=== PATIENT | male | born 1955 | race Caucasian/White ===

== ENCOUNTER 2017-07-10 07:47 | Day surgery (SDC) | payer BC ==
[2017-07-08 11:39] VITALS: BMI 29.7
[~2017-07-10 07:47] MED LIST: LACTATED RINGERS 1,000 ML IV SCH
[2017-07-10] MEDS ORDERED: LIDOCAINE 1% 20 ML VIAL (10MG/ML) FOR IV START INTRADERMA ONE (08:56)
[2017-07-10] MEDS ORDERED: fentaNYL (PF) 50 MCG/ML 2 ML AMP ONE (09:20)
[2017-07-10] MEDS ORDERED: PROPOFOL 10 MG/ML 20 ML VIAL IV ONE (09:20)
[2017-07-10] MEDS ORDERED: MIDAZOLAM 2 MG/2 ML VIAL ONE (09:20)
--- NOTE | 2017-07-10 09:51 | P.PCN ---
Date of Procedure: 07/10/17 Preoperative Diagnosis: GERD Postoperative Diagnosis: Duodenitis gastritis esophagitis Procedure(s) Performed: EGD with duodenal biopsy gastric biopsy and GE junction biopsies Anesthesia: MAC Surgeon: Efrain Campbell Pathology: other (Biopsies sent to pathology) Condition: stable Disposition: same day Description of Procedure: Patient is brought to the Endo suite placed left lateral decubitus position underwent sedation per department of anesthesia timeout performed correct patient correct procedure correct site was verified the scope was passed through the oropharynx on the esophagus with ease under direct visualization passed through the stomach into the first and second portion of the duodenum duodenitis was noted biopsy of the duodenum was taken the stomach was then withdrawn into the stomach where was retroflexed all fernandez of the stomach were inspected and ample time was allowed for the stomach to insufflate to inspect for had a hernia no significant for hernia was noted antral biopsy was then taken the stomach was noted to be somewhat inflamed with mild to moderate gastritis. The scope was then withdrawn to the GE junction where there was esophagitis noted at the GE junction multiple biopsies were taken the scope was then slowly withdrawn through the esophagus being sure to visualize all fernandez on the way out no other abnormalities were noted patient tolerated procedure well no apparent complications he will follow-up in my office Plan - Discharge Summary New Discharge Prescriptions: New Omeprazole 40 mg PO DAILY #30 capsule. No Action Tamsulosin HCl [Flomax] 0.4 mg PO DAILY Multivitamin [Men's Multi-Vitamin] 1 each PO DAILY Aspirin 81 mg PO DAILY Omeprazole [PriLOSEC] 20 mg PO DAILY Atorvastatin [Lipitor] 1 tab PO DAILY Discharge Medication List Aspirin 81 mg PO DAILY 07/08/17 [History] Multivitamin [Men's Multi-Vitamin] 1 each PO DAILY 07/08/17 [History] Omeprazole [PriLOSEC] 20 mg PO DAILY 07/08/17 [History] Tamsulosin HCl [Flomax] 0.4 mg PO DAILY 07/08/17 [History] Atorvastatin [Lipitor] 1 tab PO DAILY 07/10/17 [History] Omeprazole 40 mg PO DAILY #30 capsule. 07/10/17 [Rx]
[2017-07-10 09:54] VITALS: BP 129/77; PULSE 64; RESP 18
--- NOTE | 2017-08-11 09:15 | P.HPADDEND ---
H&P Addendum H&P Addendum Date: 08/11/17 See paper form for H and P on chart
== END 2017-07-10 10:09 | disposition home or self-care (01) ==
LOC: ORWHC2ENDO 07:47
PROVIDERS: ATTEND Student in an Organized Health Care Education/Training Program
DX: K31.9 Disease of stomach and duodenum, unspecified (principal); K21.0 Gastro-esophageal reflux disease with esophagitis; K29.80 Duodenitis without bleeding; K29.70 Gastritis, unspecified, without bleeding; E29.1 Testicular hypofunction; R68.82 Decreased libido; N40.0 Benign prostatic hyperplasia without lower urinary tract symptoms; E78.5 Hyperlipidemia, unspecified; J30.9 Allergic rhinitis, unspecified; Z79.899 Other long term (current) drug therapy; Z79.82 Long term (current) use of aspirin; Z87.891 Personal history of nicotine dependence
CPT/HCPCS: 88305; 43239; J2250; J3010; J2704

== ENCOUNTER 2020-02-16 11:04 | Emergency (ER) | payer BC ==
[2020-02-16 11:11] VITALS: TEMP 99.3
[2020-02-16 12:38] LABS: Basophils % (A) 1 %; Eosinophils % (A) 1 %; HCT 49.8 % (39.0-53.0); HGB 16.6 gm/dL (13.0-17.5); Lymphocytes # (A) 1.4 k/uL (1.0-4.8); Lymphocytes % (A) 35 %; MCH 30.4 pg (25.0-35.0); MCHC 33.2 g/dL (31.0-37.0); MCV 91.4 fL (80.0-100.0); Mean Platelet Volume 8.6; Monocytes # (A) 0.3 k/uL (0-1.0); Monocytes % (A) 7 %; Neutrophils # (A) 2.2 k/uL (1.3-7.7); Neutrophils % (A) 56 %; Platelet Count 125 k/uL (150-450); RBC 5.45 m/uL (4.30-5.90); RDW 12.8 % (11.5-15.5)
[2020-02-16 12:50] LABS: ALT 31 U/L (4-49); AST 40 U/L (17-59); African American GFR (CKD) >90 (>60 ml/min/1.73 sqM); Albumin 4.5 g/dL (3.5-5.0); Alkaline Phosphatase 84 U/L (38-126); Anion Gap 10 mmol/L; Blood Urea Nitrogen 17 mg/dL (9-20); Calcium 8.8 mg/dL (8.4-10.2); Carbon Dioxide 23 mmol/L (22-30); Chloride 101 mmol/L (98-107); Glucose 92 mg/dL (74-99); Non-African American GFR(CKD) 78 (>60 ml/min/1.73 sqM); Potassium 4.1 mmol/L (3.5-5.1); Sodium 134 mmol/L (137-145); Total Bilirubin 0.6 mg/dL (0.2-1.3); Total Protein 7.3 g/dL (6.3-8.2)
--- NOTE | 2020-02-16 13:08 | ED ---
URI HPI - General Chief Complaint: Upper Respiratory Infection Stated Complaint: +Covid SOB cough Time Seen by Provider: 02/16/20 11:15 Source: patient Mode of arrival: ambulatory Limitations: no limitations - History of Present Illness Initial Comments: 64-year-old male presenting today for chief complaint of congestion cough, covid positive. Patient states that he has had increasing on and off chest pains that are sharp he states that he has also had increasing shortness of breath he states that the pain feels like chest wall from coughing so hard. Patient denies hemoptysis leg swelling. Denies vomiting diarrhea. Patient states today he was feeling unwell like symptoms were worsenign and presented to the ER. upon arrival patient appears well nontoxic he is not in distress - Related Data Home Medications Medication Instructions Recorded Confirmed Multivitamin [Men's Multi-Vitamin] 1 tab PO DAILY 07/08/17 02/16/20 Omeprazole [PriLOSEC] 20 mg PO DAILY 07/08/17 02/16/20 Tamsulosin HCl [Flomax] 0.4 mg PO DAILY 07/08/17 02/16/20 Atorvastatin [Lipitor] 20 mg PO DAILY 07/10/17 02/16/20 Citalopram Hydrobromide [CeleXA] 20 mg PO DAILY 02/16/20 02/16/20 Previous Rx's Medication Instructions Recorded Azithromycin [Zithromax Z-pack (6 0 mg PO DIRECTED 5 Days #6 tab 02/16/20 tabs)] predniSONE 50 mg PO DAILY 5 Days #5 tab 02/16/20 Allergies Allergy/AdvReac Type Severity Reaction Status Date / Time No Known Allergies Allergy Verified 02/16/20 12:38 Review of Systems ROS Statement: Those systems with pertinent positive or pertinent negative responses have been documented in the HPI. ROS Other: All systems not noted in ROS Statement are negative. Past Medical History Past Medical History: GERD/Reflux, Hyperlipidemia Additional Past Medical History / Comment(s): hx inflation on prior EGD History of Any Multi-Drug Resistant Organisms: None Reported Past Surgical History: Orthopedic Surgery Additional Past Surgical History / Comment(s): ORIF lt foot,LASIK reagan eyes Past Anesthesia/Blood Transfusion Reactions: No Reported Reaction Past Psychological History: No Psychological Hx Reported Smoking Status: Never smoker Past Alcohol Use History: Occasional Past Drug Use History: None Reported - Past Family History Mother Family Medical History: No Reported History General Exam Limitations: no limitations Course Vital Signs 02/16/20 11:06 Temperature 99.3 F Pulse Rate 72 Respiratory 18 Rate Blood Pressure 138/83 O2 Sat by Pulse 96 Oximetry Medical Decision Making - Lab Data Result diagrams: 02/16/20 12:20 02/16/20 12:20 Lab Results 02/16/20 02/16/20 02/16/20 Range/Units 12:20 12: 12:20 WBC 4.0 (3.8-10.6) k/uL RBC 5.45 (4.30-5.90) m/uL Hgb 16.6 (13.0-17.5) gm/dL Hct 49.8 (39.0-53.0) % MCV 91.4 (80.0-100.0) fL MCH 30.4 (25.0-35.0) pg MCHC 33.2 (31.0-37.0) g/dL RDW 12.8 (11.5-15.5) % Plt Count 125 L (150-450) k/uL MPV 8.6 Neutrophils % 56 % Lymphocytes % 35 % Monocytes % 7 % Eosinophils % 1 % Basophils % 1 % Neutrophils # 2.2 (1.3-7.7) k/uL Lymphocytes # 1.4 (1.0-4.8) k/uL Monocytes # 0.3 (0-1.0) k/uL Eosinophils # 0.0 (0-0.7) k/uL Basophils # 0.0 (0-0.2) k/uL Sodium 134 L (137-145) mmol/L Potassium 4.1 (3.5-5.1) mmol/L Chloride 101 (98-107) mmol/L Carbon Dioxide 23 (22-30) mmol/L Anion Gap 10 mmol/L BUN 17 (9-20) mg/dL Creatinine 1.01 (0.66-1.25) mg/dL Est GFR (CKD-EPI)AfAm >90 (>60 ml/min/1.73 sqM) Est GFR (CKD-EPI)NonAf 78 (>60 ml/min/1.73 sqM) Glucose 92 (74-99) mg/dL Calcium 8.8 (8.4-10.2) mg/dL Total Bilirubin 0.6 (0.2-1.3) mg/dL AST 40 (17-59) U/L ALT 31 (4-49) U/L Alkaline Phosphatase 84 (38-126) U/L Troponin I <0.012 (0.000-0.034) ng/mL Total Protein 7.3 (6.3-8.2) g/dL Albumin 4.5 (3.5-5.0) g/dL Disposition Clinical Impression: COVID-19, Pneumonia Disposition: HOME SELF-CARE Condition: Good Instructions (If sedation given, give patient instructions): Upper Respiratory Infection (ED) Additional Instructions: Please use medication as discussed. Please follow-up with family doctor in the next 2 days.. Please return to emergency room if the symptoms increase or worsen or for any other concerns. Prescriptions: predniSONE 50 mg PO DAILY 5 Days #5 tab Azithromycin [Zithromax Z-pack (6 tabs)] 0 mg PO DIRECTED 5 Days #6 tab Is patient prescribed a controlled substance at d/c from ED?: No Referrals: Jer Velasquez MD [Primary Care Provider] - 1-2 days Time of Disposition: 13:46
--- NOTE | 2020-02-16 13:42 | XR ---
EXAMINATION TYPE: XR chest 2V DATE OF EXAM: 02/16/2020 COMPARISON: Prior chest x-ray 12/07/2009 HISTORY: Covid positive, shortness of breath TECHNIQUE: Frontal and lateral views of the chest are obtained. FINDINGS: The cardiac mediastinal silhouette, pulmonary vascularity and shemar are stable. Some minima l patchy densities present in the lower lobes. No evident pneumothorax or pleural effusion. There is substernal nodularity seen on the lateral exam, findings stable. IMPRESSION: Correlate for pneumonia. Old granulomatous disease.
[2020-02-16 14:16] VITALS: BP 111/84; PULSE 80; RESP 17
== END 2020-02-16 14:16 | disposition home or self-care (01) ==
LOC: EC 11:04
DX: U07.1 COVID-19 (principal); J18.9 Pneumonia, unspecified organism; K21.9 Gastro-esophageal reflux disease without esophagitis; E78.5 Hyperlipidemia, unspecified; Z79.899 Other long term (current) drug therapy
CPT/HCPCS: 36415; 71046; 80053; 84484; 85025; 93005; 99285

== ENCOUNTER 2020-02-20 09:22 | Inpatient (IN) | payer BC ==
[2020-02-20 10:20] LABS: Basophils % (A) 0 %; Eosinophils % (A) 0 %; HCT 42.9 % (39.0-53.0); HGB 15.1 gm/dL (13.0-17.5); Lymphocytes # (A) 0.6 k/uL (1.0-4.8); Lymphocytes % (A) 12 %; MCH 31.3 pg (25.0-35.0); MCHC 35.2 g/dL (31.0-37.0); MCV 88.9 fL (80.0-100.0); Mean Platelet Volume 8.7; Monocytes # (A) 0.2 k/uL (0-1.0); Monocytes % (A) 4 %; Neutrophils # (A) 4.2 k/uL (1.3-7.7); Neutrophils % (A) 82 %; Platelet Count 164 k/uL (150-450); RBC 4.82 m/uL (4.30-5.90); RDW 12.2 % (11.5-15.5); WBC 5.1 k/uL (3.8-10.6)
--- NOTE | 2020-02-20 10:22 | ED ---
General Adult HPI - General Chief complaint: Shortness of Breath Stated complaint: +Covid/SOB/Cough Time Seen by Provider: 02/20/20 09:42 Source: patient Mode of arrival: ambulatory Limitations: no limitations - History of Present Illness Initial comments: Dictation was produced using Dash[employer] dictation software. please excuse any grammatical, word or spelling errors. This patient was cared for during a federal and state declared state of emergen cy secondary to Covid 19 Chief Complaint: 64-year-old male presents with persistent dyspnea and chest pain. Covid 19 Positive History of Present Illness: 64-year-old male presents today with persistent and slightly worsening dyspnea. Patient states he has had Covid symptoms for approximately 12 days. He tested positive last week Thursday. He was seen here in emergency department 4 days ago for his symptoms. At that time is not hypoxic. Patient states that his symptoms feel like they're getting worse. States this pleuritic chest pain substernal area worse with deep inspiration and cough. Patient also states he is short of breath. Patient has a comorbidities. Does not medications on a regular basis. Still does have constitutional symptoms. The ROS documented in this emergency department record has been reviewed and confirmed by me. Those systems with pertinent positive or negative responses have been documented in the HPI. All other systems are other negative and/or noncontributory. PHYSICAL EXAM: General Impression: Alert and oriented x3, not in acute distress HEENT: Normocephalic atraumatic, extra-ocular movements intact, pupils equal and reactive to light bilaterally, mucous membranes moist. Cardiovascular: Heart regular rate and rhythm Chest: Able to complete full sentences, no retractions, no tachypnea Abdomen: abdomen soft, non-tender, non-distended, no organomegaly Musculoskeletal: Pulses present and equal in all extremities, no peripheral george ma Motor: no focal deficits noted Neurological: CN II-XII grossly intact, no focal motor or sensory deficits noted Skin: Intact with no visualized rashes Psych: Normal affect and mood ED course: 64-year-old male with positive Covid presents today with worsening dyspnea and chest pain.. Vital signs upon arrival shows 100 100.9. He is 95% on room air. He is not dyspneic appearing at bedside. Laboratory evaluation obtained. CBC shows a full set up a new 0.6. D-dimer is elevated at 16.05. Metabolic panel is within acceptable limits. C-reactive protein is 50.5. Chest x-ray shows developing bibasilar infiltrates greater at the base. CT angios the chest shows no evidence of pulmonary embolism at this time. There is however evidence of bilateral ground glass capacity is con sistent with Covid pneumonia. Disposition options were discussed with patient. He is agreeable for admission. Case was discussed with pulmonology Dr. Pichardo who recommends the patient not candidate for Remdesivir at this time. Patient given 6 mg of IV Decadron. Case is discussed with Dr. Velasquez who requests that pulmonology and infectious disease be on consult. At this point patient is stable appearing however given his clinical presentation there is strong concern his condition could worsening acutely. - Related Data Home Medications Medication Instructions Recorded Confirmed Omeprazole [PriLOSEC] 20 mg PO DAILY 07/08/17 02/20/20 Tamsulosin HCl [Flomax] 0.4 mg PO DAILY 07/08/17 02/20/20 Atorvastatin [Lipitor] 20 mg PO DAILY 07/10/17 02/20/20 Citalopram Hydrobromide [CeleXA] 20 mg PO DAILY 02/16/20 02/20/20 Azithromycin [Zithromax Z-pack (6 See Taper PO DAILY 02/20/20 02/20/20 tabs)] Previous Rx's Medication Instructions Recorded predniSONE 50 mg PO DAILY 5 Days #5 tab 02/16/20 Allergies Allergy/AdvReac Type Severity Reaction Status Date / Time No Known Allergies Allergy Verified 02/20/20 10:34 Review of Systems ROS Statement: Those systems with pertinent positive or pertinent negative responses have been documented in the HPI. ROS Other: All systems not noted in ROS Statement are negative. Past Medical History Past Medical History: GERD/Reflux, Hyperlipidemia Additional Past Medical History / Comment(s): covid History of Any Multi-Drug Resistant Organisms: None Reported Past Surgical History: Orthopedic Surgery Additional Past Surgical History / Comment(s): ORIF lt foot,LASIK reagan eyes Past Anesthesia/Blood Transfusion Reactions: No Reported Reaction Past Psychological History: No Psychological Hx Reported Smoking Status: Never smoker Past Alcohol Use History: Occasional Past Drug Use History: None Reported - Past Family History Mother Family Medical History: No Reported History General Exam Limitations: no limitations Course Vital Signs 02/20/20 09:34 Temperature 100.9 F H Pulse Rate 86 Respiratory 20 Rate Blood Pressure 130/82 O2 Sat by Pulse 95 Oximetry Medical Decision Making - Lab Data Result diagrams: 02/20/20 09:55 02/20/20 09:55 Lab Results 02/20/20 02/20/20 02/20/20 Range/Units 09:55 09:55 09:55 WBC 5.1 (3.8-10.6) k/uL RBC 4.82 (4.30-5.90) m/uL Hgb 15.1 (13.0-17.5) gm/dL Hct 42.9 (39.0-53.0) % MCV 88.9 (80.0-100.0) fL MCH 31.3 (25.0-35.0) pg MCHC 35.2 (31.0-37.0) g/dL RDW 12.2 (11.5-15.5) % Plt Count 164 (150-450) k/uL MPV 8.7 Neutrophils % 82 % Lymphocytes % 12 % Monocytes % 4 % Eosinophils % 0 % Basophils % 0 % Neutrophils # 4.2 (1.3-7.7) k/uL Lymphocytes # 0.6 L (1.0-4.8) k/uL Monocytes # 0.2 (0-1.0) k/uL Eosinophils # 0.0 (0-0.7) k/uL Basophils # 0.0 (0-0.2) k/uL D-Dimer 16.05 H (<0.60) mg/L FEU Sodium 135 L (137-145) mmol/L Potassium 3.7 (3.5-5.1) mmol/L Chloride 105 (98-107) mmol/L Carbon Dioxide 21 L (22-30) mmol/L Anion Gap 9 mmol/L BUN 20 (9-20) mg/dL Creatinine 0.84 (0.66-1.25) mg/dL Est GFR (CKD-EPI)AfAm >90 (>60 ml/min/1.73 sqM) Est GFR (CKD-EPI)NonAf >90 (>60 ml/min/1.73 sqM) Glucose 109 H (74-99) mg/dL Calcium 8.8 (8.4-10.2) mg/dL Troponin I (0.000-0.034) ng/mL C-Reactive Protein 50.5 H (<10.0) mg/L 02/20/20 Range/Units 09:55 WBC (3.8-10.6) k/uL RBC (4.30-5.90) m/uL Hgb (13.0-17.5) gm/dL Hct (39.0-53.0) % MCV (80.0-100.0) fL MCH (25.0-35.0) pg MCHC (31.0-37.0) g/dL RDW (11.5-15.5) % Plt Count (150-450) k/uL MPV Neutrophils % % Lymphocytes % % Monocytes % % Eosinophils % % Basophils % % Neutrophils # (1.3-7.7) k/uL Lymphocytes # (1.0-4.8) k/uL Monocytes # (0-1.0) k/uL Eosinophils # (0-0.7) k/uL Basophils # (0-0.2) k/uL D-Dimer (<0.60) mg/L FEU Sodium (137-145) mmol/L Potassium (3.5-5.1) mmol/L Chloride (98-107) mmol/L Carbon Dioxide (22-30) mmol/L Anion Gap mmol/L BUN (9-20) mg/dL Creatinine (0.66-1.25) mg/dL Est GFR (CKD-EPI)AfAm (>60 ml/min/1.73 sqM) Est GFR (CKD-EPI)NonAf (>60 ml/min/1.73 sqM) Glucose (74-99) mg/dL Calcium (8.4-10.2) mg/dL Troponin I <0.012 (0.000-0.034) ng/mL C-Reactive Protein (<10.0) mg/L Disposition Clinical Impression: COVID-19 Disposition: ADMITTED IP TO THIS HOSP Condition: Fair Referrals: Jer Velasquez MD [Primary Care Provider] - 1-2 days Decision Time: 13:08
--- NOTE | 2020-02-20 10:38 | XR ---
EXAMINATION TYPE: XR chest 1V portable DATE OF EXAM: 02/20/2020 COMPARISON: 02/16/2020 INDICATION: Lung pain, Covid pneumonia TECHNIQUE: Single frontal view of the chest is obtained. FINDINGS: The heart size is normal. The pulmonary vasculature is normal. Mild patchy infiltrate is at the left base. Minimal infiltrate may be at the right base. Findings are developing from comparison IMPRESSION: 1. Developing bibasilar infiltrates greater at the left base. Findings can be compatible with atypica l pneumonia in the proper clinical setting.
[2020-02-20 10:39] LABS: African American GFR (CKD) >90 (>60 ml/min/1.73 sqM); Anion Gap 9 mmol/L; Blood Urea Nitrogen 20 mg/dL (9-20); C Reactive Protein 50.5 mg/L (<10.0); Calcium 8.8 mg/dL (8.4-10.2); Carbon Dioxide 21 mmol/L (22-30); Chloride 105 mmol/L (98-107); Glucose 109 mg/dL (74-99); Non-African American GFR(CKD) >90 (>60 ml/min/1.73 sqM); Potassium 3.7 mmol/L (3.5-5.1); Sodium 135 mmol/L (137-145)
--- NOTE | 2020-02-20 11:43 | CT ---
EXAMINATION TYPE: CT chest angio for PE DATE OF EXAM: 02/20/2020 COMPARISON: 12/07/2009 HISTORY: difficulty breathing, covid positive CT DLP: 476.6 mGycm CONTRAST: CT chest with contrast and 3D reconstruction with MIP imaging is performed with IV Contrast, patient injected with 100 mL of Isovue 370. Contrast-enhanced CT of the chest was performed through the course of the pulmonary arteries with nata g and mediastinal window settings submitted. 3D reconstruction with MIP imaging was also performed. PULMONARY ARTERIES: The pulmonary arteries and their major tributaries are patent. I do not see otilia dence for sizable filling defect to suggest pulmonary embolic process. LUNGS: Scattered groundglass infiltrates are seen bilaterally. No evidence for atelectasis. No pulm onary nodule or mass is detected. No pleural effusion. MEDIASTINUM: Thoracic aorta is of normal caliber,however, evaluation is limited given timing of the contrast bolus. If there is concern for thoracic aortic pathology consider SHIKHA. Correlate clinicall y . The heart is enlarged. No evidence for mediastinal mass. No mediastinal lymph nodes greater vivienne n 1cm. HILAR STRUCTURES: No evidence for mass. No hilar lymph nodes greater than 1 cm. UPPER ABDOMEN: No significant abnormality is seen. IMPRESSION: 1. No evidence for Pulmonary embolism at this time. 2. Bilateral groundglass infiltrates compatible with Covid 19 pneumonia.
[2020-02-20] MEDS ORDERED: DEXAMETHASONE SOD PHOSPHATE 10 MG/ML 1 ML VIAL IV STA (12:34)
[2020-02-20] MEDS ORDERED: NALOXONE 0.4 MG/ML 1 ML VIAL IV PRN (13:01)
[2020-02-20] MEDS ORDERED: ACETAMINOPHEN TAB 325 MG TAB PO PRN (14:33)
[2020-02-20] MEDS: SODIUM CHLORIDE 0.9% 1,000 ML IV SCH (14:45)
[2020-02-20] MEDS: CHOLECALCIFEROL 1,000 UNIT TAB PO SCH (17:58)
[2020-02-20] MEDS: ASCORBIC ACID 500 MG TAB PO SCH (17:58)
[2020-02-20] MEDS: AZITHROMYCIN 500 MG TAB PO SCH (17:58)
[2020-02-20] MEDS: ZINC SULFATE 220 MG CAP PO SCH (17:59)
[2020-02-20] MEDS: ENOXAPARIN 40 MG/0.4 ML SYRINGE SQ SCH (17:59)
--- NOTE | 2020-02-21 03:20 | CONS ---
CONSULTATION DATE OF SERVICE: 02/20/2020 REASON FOR CONSULTATION: Acute COVID-19 infection. HISTORY OF PRESENT ILLNESS: The patient is a 64-year-old male, started getting sick about 12 days ago on February 08. The patient's symptoms have been fever, runny nose, sore throat and cough. The patient's symptoms persisted and rather gotten worse and he was tested for COVID-19 last Thursday. He got results on Thursday, which was positive. The patient was seen at [facility] ER about 4 days ago with similar symptoms. At that point, the patient was not hypoxic and the patient was discharged home on steroids and vancomycin. The patient presented back to the ER with concern for increasing shortness of breath upon minimal exertion. The patient also having cough which is mild to moderate intensity, not bringing up any sputum. No nausea, no vomiting. No abdominal pain or any diarrhea. With these symptoms, the patient was evaluated by the ER physician. On arrival to the ER, the patient did have a low-grade fever of 100.9. The patient has been saturating 95% to 96% on room air. The patient did have lymphopenia. His D-dimer was 16. . Chest x-ray was showing developing bibasilar infiltrate. CT angiogram was negative for PE, did show bilateral interstitial infiltrate. The patient has been admitted to the hospital. Infectious Disease was consulted for further management. REVIEW OF SYSTEMS: Positive points have been mentioned in HPI. Rest of the systems are negative. PAST MEDICAL HISTORY: Gastroesophageal reflux disease, hyperlipidemia. PAST SURGICAL HISTORY: ORIF left foot, bilateral eyes. SOCIAL HISTORY: No history of smoking. Occasionally drinks. No drug use. FAMILY HISTORY: No pertinent findings noticed. ALLERGIES: No known drug allergies. MEDICATIONS: Medications include the patient is currently on Zithromax, Celexa, dexamethasone, Lovenox Protonix, zinc sulfate, Narcan, Lipitor, Tylenol, vitamin C. PHYSICAL EXAMINATION: Blood pressure 120/74 with a pulse of 78, temperature is 97.6. He is 92% on room air. General description is a middle-aged male up in the chair in no distress. No tachypnea or accessory muscle of respiration use. HEENT: Examination shows no pallor or scleral icterus. Oral mucous membranes dry. NECK: Trachea central. No thyromegaly. LUNGS: Unlabored breathing, decreased intensity of breath sounds. No wheeze. HEART: S1, S2. Regular rate and rhythm. ABDOMEN: Soft. No tenderness. No guarding or rigidity. EXTREMITIES: No edema of feet. SKIN EXAMINATION: No rash or mass palpable. NEUROLOGICAL: Patient is awake, alert, oriented x3. Mood and affect normal. LABS: Hemoglobin 15.1, white count of 5.1. D-dimer is 16.05 with a BUN of 20, creatinine 0.84. CRP is 50.5. DIAGNOSTIC IMPRESSION: Patient with acute COVID-19 pneumonia in this patient admitted to the hospital with increasing shortness of breath. Patient's symptoms have been going on for 12 days and this patient currently will not qualify for remdesivir because of duration of his symptoms and no evidence of any secondary bacterial infection. PLAN: 1. Patient will be treated with Decadron, zinc sulfate, vitamin C, and Lovenox. In view of significant elevated D-dimer, may benefit from therapeutic rather than prophylactic dose. Will discuss with Pulmonary. 2. Will repeat inflammatory markers tomorrow. 3. Droplet isolation and respiratory support. 4. We will follow on clinical condition and further adjust medication if needed. Thank you for this consultation. Will follow this patient along with you. MMODL / IJN: [id number] /
[2020-02-21 06:40] LABS: Basophils # (A) 0.1 k/uL (0-0.2); Basophils % (A) 2 %; Eosinophils % (A) 0 %; HCT 39.5 % (39.0-53.0); HGB 13.5 gm/dL (13.0-17.5); Lymphocytes # (A) 0.6 k/uL (1.0-4.8); Lymphocytes % (A) 18 %; MCH 30.8 pg (25.0-35.0); MCHC 34.2 g/dL (31.0-37.0); Mean Platelet Volume 9.1; Monocytes # (A) 0.4 k/uL (0-1.0); Monocytes % (A) 11 %; Neutrophils # (A) 2.3 k/uL (1.3-7.7); Neutrophils % (A) 67 %; Platelet Count 165 k/uL (150-450); RBC 4.39 m/uL (4.30-5.90); RDW 12.1 % (11.5-15.5); WBC 3.5 k/uL (3.8-10.6)
[2020-02-21] MEDS: dexAMETHasone 2 MG TAB PO SCH (08:24)
[2020-02-21] MEDS: CITALOPRAM HYDROBROMIDE 20 MG TAB PO SCH (08:24)
[2020-02-21] MEDS: TAMSULOSIN 0.4 MG CAP.ER.24H PO SCH (08:24)
[2020-02-21] MEDS: ASCORBIC ACID 500 MG TAB PO SCH (08:24)
[2020-02-21] MEDS: CHOLECALCIFEROL 1,000 UNIT TAB PO SCH (08:24)
[2020-02-21] MEDS: AZITHROMYCIN 500 MG TAB PO SCH (08:24)
[2020-02-21] MEDS: ATORVASTATIN 20 MG TAB PO SCH (08:24)
[2020-02-21] MEDS: ZINC SULFATE 220 MG CAP PO SCH (08:24)
[2020-02-21] MEDS: PANTOPRAZOLE 40 MG TABLET PO SCH (08:24)
[2020-02-21] MEDS: ENOXAPARIN 40 MG/0.4 ML SYRINGE SQ SCH (08:24)
--- NOTE | 2020-02-21 15:51 | P.HPIM ---
History of Present Illness H&P Date: 02/20/20 Chief Complaint: Cough, congestion, shortness of breath This is a 64-year-old male patient of mine with past medical history of gastroesophageal reflux disease, hyperlipidemia, benign prostatic hypertrophy, recurrent depression. Patient was tested his Covid positive on Thursday of last week and presents with complaints chest congestion and cough as well as chest discomfort secondary to coughing, increasing shortness of breath. He denies any abdominal pain, vomiting or diarrhea. He initially presented to the emergency center on February 15 with worsening symptoms and was discharged home on prednisone 50 mg 5 days, Z-Angelito. Patient returned today to the [facility] with continued and persistent worsening dyspnea. Patient continues to have chest discomfort with deep inspiration and coughing. Temperature max 100.9, heart rate 86, blood pressure 130/82, pulse ox 95% on room air. CBC was unremarkable except for lymphocytopenia at 0.6. D-dimer 16. 05. C-reactive protein 50.5. Troponin negative. Electrolytes and renal function unremarkable. Chest x-ray reveals developing bibasilar infiltrates greater on the left base. Findings can be compatible with atypical pneumonia. CT angiogram of the chest revealed no evidence of pulmonary embolism. Bilateral groundglass infiltrates compatible with Covid [address] Pichardo was contacted by ER physician and patient not considered a candidate for Remdesivir. He was started on IV Decadron, admitted to the [facility] floor and consults with pulmonary medicine and infectious disease. Review of Systems Cardiovascular: Reports chest pain, Reports dyspnea on exertion, Reports shortness of breath, Denies edema, Denies leg edema, Denies lightheadedness, D enies palpitations, Denies syncope Respiratory: Reports congestion, Reports cough, Reports cough with sputum, Reports dyspnea, Reports respiratory infections, Reports wheezing, Denies excessive sputum, Denies hemoptysis, Denies home oxygen Gastrointestinal: Denies abdominal pain, Denies diarrhea, Denies nausea, Denies vomiting Genitourinary: Denies dysuria, Denies urinary hesitancy, Denies urinary retention Musculoskeletal: Denies frequent falls, Denies gait dysfunction, Denies myalgias Integumentary: Denies pruritus, Denies rash, Denies wounds Neurological: Denies change in mentation, Denies change in speech, Denies confusion, Denies headaches, Denies numbness, Denies seizures, Denies weakness Psychiatric: Denies anxiety, Denies depression Endocrine: Denies fatigue, Denies weight change Past Medical History Past Medical History: GERD/Reflux, Hyperlipidemia, Hypertension, Osteoarthritis (OA), Prostate Disorder, Sleep Apnea/CPAP/BIPAP Additional Past Medical History / Comment(s): covid, low testosterone. History of Any Multi-Drug Resistant Organisms: None Reported Past Surgical History: Orthopedic Surgery Additional Past Surgical History / Comment(s): ORIF lt foot,LASIK reagan eyes, right elbow surgery due to bone chip, colonoscopy Past Anesthesia/Blood Transfusion Reactions: No Reported Reaction Past Psychological History: No Psychological Hx Reported Smoking Status: Never smoker Past Alcohol Use History: Occasional Past Drug Use History: None Reported - Past Family History Mother Family Medical History: Hypertension (Mother is alive 88 year old with hyper tension.) Father Family Medical History: Dementia (Father at the age of 74 from dementia and had a history of seizure.), Hypertension, Seizure Disorder Brother(s) Family Medical History: Hyperlipidemia (one brother overweight with hy prlipidemia) Son(s) Family Medical History: No Reported History (2 sons with no major medical issues.) Daughter(s) Family Medical History: No Reported History (3 daughters with no major medical issues.) Medications and Allergies Home Medications Medication Instructions Recorded Confirmed Type Omeprazole [PriLOSEC] 20 mg PO DAILY 07/08/17 02/20/20 History Tamsulosin HCl [Flomax] 0.4 mg PO DAILY 07/08/17 02/20/20 History Atorvastatin [Lipitor] 20 mg PO DAILY 07/10/17 02/20/20 History Citalopram Hydrobromide [CeleXA] 20 mg PO DAILY 02/16/20 02/20/20 History predniSONE 50 mg PO DAILY 5 Days #5 tab 02/16/20 02/20/20 Rx Azithromycin [Zithromax Z-pack (6 See Taper PO DAILY 02/20/20 02/20/20 History tabs)] Allergies Allergy/AdvReac Type Severity Reaction Status Date / Time No Known Allergies Allergy Verified 02/20/20 10:34 Physical Exam Vitals: Vital Signs Temp Pulse Resp BP Pulse Ox 02/20/20 12:00 98.6 F 93 18 99/67 95 02/20/20 09:34 100.9 F H 86 20 130/82 95 Intake and Output 02/19/20 02/20/20 02/20/20 22:59 06:59 14:59 Other: Weight 104.326 kg Physical examination: HEENT: Head is atraumatic, normocephalic, pupils were equal round reactive to light and accommodations, extraocular muscle movement were intact, mucous membranes of the mouth are somewhat dry . Neck: Supple, no JVP, decreased carotid upstroke brisk. Chest: Decreased breath sounds at the bases, few rhonchi, no expiratory wheezes, no chest wall tenderness, no intercostal retractions. Heart: First heart sound is depressed, second heart sound is normal, no murmur. Abdomen: Soft, no tenderness, no distention, normal bowel sounds. Extremities: There is no edema, no calf tenderness, dorsalis pedis +2 bilaterally. Neurologic examination: Patient is awake alert and oriented 3, cranial nerves II-12 grossly intact. Results CBC & Chem 7: 02/21/20 06:07 02/20/20 09:55 Labs: Abnormal Lab Results - Last 24 Hours (Table) 02/20/20 02/20/20 02/20/20 Range/Units 09:55 09:55 09:55 Lymphocytes # 0.6 L (1.0-4.8) k/uL D-Dimer 16.05 H (<0.60) mg/L FEU Sodium 135 L (137-145) mmol/L Carbon Dioxide 21 L (22-30) mmol/L Glucose 109 H (74-99) mg/dL C-Reactive Protein 50.5 H (<10.0) mg/L Thrombosis Risk Factor Assmnt - DVT/VTE Prophylaxis DVT/VTE Prophylaxis: Pharmacologic Prophylaxis ordered Assessment and Plan Assessment: 1. Acute COVID-19 pneumonia diagnosed 6 days ago and out of the timeframe for Remdesivir. Patient admitted to the [facility] floor, consult with pulmonary medicine and infectious disease. Patient continued on azithromycin 500 mg daily, vitamin C, vitamin D, zinc, dexamethasone 6 mg daily, Lovenox 40 mg subcu daily. 2. Febrile illness with elevated inflammatory markers secondary to Covid 19. Continue as in #1. 3. Hyperlipidemia. Continue Lipitor 20 mg daily. 4. Gastroesophageal reflux disease and GI prophylaxis. Omeprazole 20 mg daily. 5. Recurrent depression. Continue Celexa 20 mg daily. 6. Benign prostatic hypertrophy. Continue Flomax 0.4 mg daily and monitor for urinary retention. 7. Remote history of tobacco use. quit. 8. DVT prophylaxis. we will continue wit Lovenox 40 mg SC daily. 9. Admits to inpatient , estimated length of stay 2 midnights. 10. full code.
--- NOTE | 2020-02-21 15:56 | P.PN ---
Subjective Progress Note Date: 02/21/20 This is a 64-year-old male patient of mine with past medical history of gastroesophageal reflux disease, hyperlipidemia, benign prostatic hypertrophy, recurrent depression. Patient was tested his Covid positive on Thursday of last week and presents with complaints chest congestion and cough as well as chest discomfort secondary to coughing, increasing shortness of breath. He denies any abdominal pain, vomiting or diarrhea. He initially presented to the emergency center on February 15 with worsening symptoms and was discharged home on prednisone 50 mg 5 days, Z-Angelito. Patient returned today to the emergency center with continued and persistent worsening dyspnea. Patient continues to have chest discomfort with deep inspiration and coughing. Temperature max 100.9, heart rate 86, blood pressure 130/82, pulse ox 95% on room air. CBC was unremarkable except for lymphocytopenia at 0.6. D-dimer 16.05. C-reactive protein 50.5. Troponin negative. Electrolytes and renal function unremarkable. Chest x-ray reveals developing bibasilar infiltrates greater on the left base. Findings can be compatible with atypical pneumonia. CT angiogram of the chest revealed no evidence of pulmonary embolism. Bilateral groundglass infiltrates compatible with Covid [address] Pichardo was contacted by ER physician and patient not considered a candidate for Remdesivir. He was started on IV Decadron, admitted to the [facility] floor and consults with pulmonary medicine and infectious disease. 02/20: Patient continues to have shortness of breath and dyspnea with exertion. Pulse ox is 91% on room air, he has been afebrile, blood pressure 128/76, heart rate 75. Repeat blood work reveals WBC 3.5 and lymphocytes remain low at 0.6. D-dimer slightly improved to 13.68. C-reactive protein improved to 6 and pro- calcitonin 0.03. Patient has been seen by infectious disease with recommen dations to continue Decadron Lovenox and supplements. No plan for Remdesivir. We'll plan to monitor patient overnight and in he is oxygenating well and inflammatory markers are improved, anticipate discharge home. Objective - Vital Signs Vital signs: Vital Signs Temp 97.6 F 02/21/20 04:36 Pulse 67 02/21/20 04:36 Resp 16 02/21/20 04:36 BP 135/81 02/21/20 04:36 Pulse Ox 91 L 02/21/20 04:36 Intake & Output 02/20/20 02/21/20 02/21/20 18:59 06:59 18:59 Weight 104.326 kg Other: Voiding Method Toilet Toilet Toilet Urinal Urinal # Voids 1 - Exam Review of Systems Cardiovascular: Reports chest pain, Reports dyspnea on exertion, Reports shortness of breath, Denies edema, Denies leg edema, Denies lightheadedness, Denies palpitations, Denies syncope Respiratory: Reports congestion, Reports cough, Reports cough with sputum, Reports dyspnea, Reports respiratory infections, Reports wheezing, Denies excessive sputum, Denies hemoptysis, Denies home oxygen, reports dyspnea with exertion Gastrointestinal: Denies abdominal pain, Denies diarrhea, Denies nausea, Denies vomiting Genitourinary: Denies dysuria, Denies urinary hesitancy, Denies urinary retention Musculoskeletal: Denies frequent falls, Denies gait dysfunction, Denies myalgias Integumentary: Denies pruritus, Denies rash, Denies wounds Neurological: Denies change in mentation, Denies change in speech, Denies confusion, Denies headaches, Denies numbness, Denies seizures, Denies weakness Psychiatric: Denies anxiety, Denies depression Endocrine: Denies fatigue, Denies weight change Physical examination: HEENT: Head is atraumatic, normocephalic, pupils were equal round reactive to light and accommodations, extraocular muscle movement were intact, mucous membranes of the mouth are somewhat dry . Neck: Supple, no JVP, decreased carotid upstroke brisk. Chest: Decreased breath sounds at the bases, few rhonchi, no expiratory wheezes, no chest wall tenderness, no intercostal retractions. Heart: First heart sound is depressed, second heart sound is normal, no murmur. Abdomen: Soft, no tenderness, no distention, normal bowel sounds. Extremities: There is no edema, no calf tenderness, dorsalis pedis +2 bilaterally. Neurologic examination: Patient is awake alert and oriented 3, cranial nerves II-12 grossly intact. - Labs CBC & Chem 7: 02/21/20 06:07 02/20/20 09:55 Labs: Abnormal Lab Results - Last 24 Hours (Table) 02/21/20 02/21/20 02/21/20 Range/Units 06:07 06:07 06:07 WBC 3.5 L (3.8-10.6) k/uL Lymphocytes # 0.6 L (1.0-4.8) k/uL D-Dimer 13.68 H (<0.60) mg/L FEU C-Reactive Protein 6.0 H (0.0-0.8) mg/dL Assessment and Plan Assessment: 1. Acute COVID-19 pneumonia diagnosed 6 days ago and out of the timeframe for Remdesivir. [facility] floor, consult with pulmonary medicine and infectious disease. Continue azithromycin 500 mg daily, vitamin C, vitamin D, zinc, dexamethasone 6 mg daily, Lovenox 40 mg subcu daily. 2. Febrile illness with elevated inflammatory markers secondary to Covid 19. Continue as in #1. 3. Hyperlipidemia. Continue Lipitor 20 mg daily. 4. Gastroesophageal reflux disease and GI prophylaxis. Omeprazole 20 mg daily. 5. Recurrent depression. Continue Celexa 20 mg daily. 6. Benign prostatic hypertrophy. Continue Flomax 0.4 mg daily and monitor for urinary retention. 7. Remote history of tobacco use. 8. DVT prophylaxis. Lovenox. Discharge plan: Home tomorrow.
[2020-02-21] MEDS: SODIUM CHLORIDE 0.9% 1,000 ML IV SCH (17:54)
[2020-02-21] MEDS ORDERED: REMDESIVIR (EUA) 200 MG in SODIUM CHLORIDE 0.9% 250 ML IVPB ONE (18:00)
--- NOTE | 2020-02-21 18:55 | P.CNPUL ---
History of Present Illness Consult date: 02/21/20 Requesting physician: Jer Velasquez Reason for consult: dyspnea, abnormal CXR/CT Chief complaint: Dyspnea, fever History of present illness: This is a 64-year-old white male patient of Dr. Velasquez, who presented to the emergency department on 02/20/2020 for evaluation of fever, runny nose, sore throat and cough. His onset of symptoms was approximately 10 days ago. His symptoms continued to progress rather than improved, patient was tested for COVID 19 last Thursday and he got positive results on Thursday. Patient was seen in the emergency department about 4 days ago with similar symptoms, however at that time he did not require supplemental oxygen, and was discharged home on oral steroids and vancomycin. Patient came back to the emergency room department for reevaluation with worsening shortness of breath, exertional dyspnea, cough which is dry in nature, and continued low-grade fever, and emergency department patient had a fever of 100.9F. His pulse ox is 91% on room air, he is dyspneic with minimal exertion, his chest x-ray shows bibasilar developing infiltrates greater at the left base. His blood work showed lymphopenia with lymphocytic, 0.6, d-dimer was significantly elevated at 16.05, sodium of 135, CO2 was 21, the rest of electrolytes and renal profile were within normal limits, troponin was less than 0.012, CRP was 50.5, follow-up CRP was 6.0, and pro-calcitonin level was negative at 0.03. CTA chest was obtained showing no evidence of pulmonary embolism at this time, and it showed bilateral groundglass infiltrates compatible with COVID 19 pneumonia. Review of Systems All systems: negative Constitutional: Reports weakness, Denies chills, Denies fever Eyes: denies blurred vision, denies pain Ears, nose, mouth and throat: Reports nasal discharge, Reports sore throat, Denies headache Cardiovascular: Denies chest pain, Denies shortness of breath Respiratory: Reports cough, Reports dyspnea Gastrointestinal: Denies abdominal pain, Denies diarrhea, Denies nausea, Denies vomiting Musculoskeletal: Denies myalgias Integumentary: Denies pruritus, Denies rash Neurological: Denies numbness, Denies weakness Psychiatric: Denies anxiety, Denies depression Endocrine: Denies fatigue, Denies weight change Past Medical History Past Medical History: GERD/Reflux, Hyperlipidemia Additional Past Medical History / Comment(s): covid History of Any Multi-Drug Resistant Organisms: None Reported Past Surgical History: Orthopedic Surgery Additional Past Surgical History / Comment(s): ORIF lt foot,LASIK reagan eyes Past Anesthesia/Blood Transfusion Reactions: No Reported Reaction Additional Past Anesthesia/Blood Transfusion Reaction / Comment(s): Pt has clausterphobia Past Psychological History: No Psychological Hx Reported Smoking Status: Never smoker Past Alcohol Use History: Occasional Past Drug Use History: None Reported - Past Family History Mother Family Medical History: No Reported History Additional Family Medical History / Comment(s): Mother is 88 yrs old. Father Family Medical History: Dementia, Hypertension, Seizure Disorder Medications and Allergies Home Medications Medication Instructions Recorded Confirmed Type Omeprazole [PriLOSEC] 20 mg PO DAILY 07/08/17 02/20/20 History Tamsulosin HCl [Flomax] 0.4 mg PO DAILY 07/08/17 02/20/20 History Atorvastatin [Lipitor] 20 mg PO DAILY 07/10/17 02/20/20 History Citalopram Hydrobromide [CeleXA] 20 mg PO DAILY 02/16/20 02/20/20 History predniSONE 50 mg PO DAILY 5 Days #5 tab 02/16/20 02/20/20 Rx Azithromycin [Zithromax Z-pack (6 See Taper PO DAILY 02/20/20 02/20/20 History tabs)] Allergies Allergy/AdvReac Type Severity Reaction Status Date / Time No Known Allergies Allergy Verified 02/20/20 10:34 Physical Exam Vitals: Vital Signs Temp Pulse Resp BP Pulse Ox 02/21/20 12:43 97.8 F 75 17 128/76 91 L 02/21/20 04:36 97.6 F 67 16 135/81 91 L 02/20/20 19:16 97.6 F 78 16 120/74 92 L Intake and Output 02/21/20 02/21/20 02/21/20 06:59 14:59 22:59 Intake Total 410 Balance 410 Intake: Intake, IV Titration 410 Amount Remdesivir (Eua) 100 mg 250 In Sodium Chloride 0.9% 250 ml @ 250 mls/hr IVPB Q24H NAVARRO Rx#:[id number] Sodium Chloride 0.9% 1, 160 000 ml @ 20 mls/hr IV . Q24H [facility]ARRO Rx#:[id number] Other: Voiding Method Toilet Toilet Urinal GENERAL EXAM: Alert, pleasant, 64-year-old white male on room air with a pulse ox of 91% comfortable in no apparent distress. HEAD: Normocephalic/atraumatic. EYES: Normal reaction of pupils, equal size. Conjunctiva pink, sclera white. NOSE: Clear with pink turbinates. THROAT: No erythema or exudates. NECK: No masses, no JVD, no thyroid enlargement, no adenopathy. CHEST: No chest wall deformity. Symmetrical expansion. LUNGS: Equal air entry with no crackles, wheeze, rhonchi or dullness. CVS: Regular rate and rhythm, normal S1 and S2, no gallops, no murmurs, no rubs ABDOMEN: Soft, nontender. No hepatosplenomegaly, normal bowel sounds, no g uarding or rigidity. EXTREMITIES: No clubbing, no edema, no cyanosis, 2+ pulses and upper and lower extremities. MUSCULOSKELETAL: Muscle strength and tone normal. SPINE: No scoliosis or deformity SKIN: No rashes CENTRAL NERVOUS SYSTEM: Alert and oriented -3. No focal deficits, tone is normal in all 4 extremities. PSYCHIATRIC: Alert and oriented -3. Appropriate affect. Intact judgment and insight. Results - Laboratory Findings CBC and BMP: 02/21/20 06:07 02/20/20 09:55 PT/INR, D-dimer D-Dimer 13.68 mg/L FEU (<0.60) H 02/21/20 06:07 Abnormal lab findings: Abnormal Labs 02/20/20 02/20/20 02/20/20 09:55 09:55 09:55 WBC Lymphocytes # 0.6 L D-Dimer 16.05 H Sodium 135 L Carbon Dioxide 21 L Glucose 109 H C-Reactive Protein 50.5 H 02/21/20 02/21/20 02/21/20 06:07 06:07 06:07 WBC 3.5 L Lymphocytes # 0.6 L D-Dimer 13.68 H Sodium Carbon Dioxide Glucose C-Reactive Protein 6.0 H - Diagnostic Findings Chest x-ray: report reviewed, image reviewed CT scan - chest: report reviewed, image reviewed Assessment and Plan Plan: Assessment: #1. Acute hypoxic respiratory failure related to acute COVID 19 pneumonitis, with progressive symptoms of dyspnea, cough, and ongoing fever, will start on a Remdesivir on 02/21/2020 #2. Symptoms of dyspnea, cough, fever #3. Significantly elevated d-dimer, with no evidence of pulmonary embolism on CTA chest, will increase to therapeutic doses of Lovenox #4. Elevated CRP related to acute COVID 19 related pneumonia #5. GERD/reflux #6. Hyperlipidemia #7. Depression #8. Nonsmoker Plan: Continue Decadron, we will add Remdesivir, will increase patient's Lovenox to therapeutic doses at 100 mg every 12 hours view of significantly elevated d- dimer. Continue monitoring febrile pattern, oxygenation pattern, we'll continue to follow I performed a history & physical examination of the patient and discussed their management with my nurse practitioner, Briseida Grover. I reviewed the nurse practitioner's note and agree with the documented findings and plan of care. Lung sounds are positive for diminished breath sounds. The findings and the impression was discussed with the patient. I attest to the documentation by the nurse practitioner. Time with Patient: Greater than 30
[2020-02-21] MEDS: ENOXAPARIN 100 MG/ML SYRINGE SQ SCH (21:09)
--- NOTE | 2020-02-22 02:21 | PN ---
PROGRESS NOTE DATE OF SERVICE: 02/21/2020 REASON FOR FOLLOWUP: Acute COVID-19 pneumonia. INTERVAL HISTORY: The patient is currently afebrile. He is still complaining of shortness of breath with minimal exertion. The patient denies having any chest pain. Minimal cough. No nausea, no vomiting. No abdominal pain or diarrhea. PHYSICAL EXAMINATION: Blood pressure 140/85 with a pulse of 67, temperature 98.5. He is 98% on room air. General description is an elderly male up in the chair in no distress. RESPIRATORY SYSTEM: Unlabored breathing, decreased intensity of breath sounds. No wheeze. HEART: S1, S2. Regular rate and rhythm. ABDOMEN: Soft, no tenderness. LABS: Hemoglobin 13.5, white count 3.5. D-dimer is down to 13.68. DIAGNOSTIC IMPRESSION AND PLAN: Patient with acute COVID-19 infection, the symptoms have been going on for more than 10 days in this patient currently covered with dexamethasone, Lovenox and has been started on remdesivir and zinc sulfate to continue and will monitor his clinical course closely. MMODL / IJN: [id number] /
[2020-02-22 06:35] LABS: Basophils % (A) 0 %; Eosinophils % (A) 0 %; HCT 38.9 % (39.0-53.0); HGB 13.6 gm/dL (13.0-17.5); Lymphocytes # (A) 1.1 k/uL (1.0-4.8); Lymphocytes % (A) 22 %; MCH 31.5 pg (25.0-35.0); MCHC 34.9 g/dL (31.0-37.0); MCV 90.1 fL (80.0-100.0); Mean Platelet Volume 9.2; Monocytes # (A) 0.4 k/uL (0-1.0); Monocytes % (A) 8 %; Neutrophils # (A) 3.4 k/uL (1.3-7.7); Neutrophils % (A) 68 %; Platelet Count 169 k/uL (150-450); RBC 4.31 m/uL (4.30-5.90); RDW 12.2 % (11.5-15.5)
--- NOTE | 2020-02-22 08:00 | XR ---
EXAMINATION TYPE: XR chest 1V portable DATE OF EXAM: 02/22/2020 HISTORY: Shortness of breath. COMPARISON: 02/20/2020 TECHNIQUE: Single view of the chest is submitted. FINDINGS: Demonstrated are scattered senescent parenchymal change. Perihilar and basilar infiltrates persist without significant interval change. The heart is stable. Hilar and mediastinal structures are within normal limits. Degenerative changes are seen of the dorsal spine. IMPRESSION: 1. Chronic changes without evidence for acute pulmonary disease.
[2020-02-22] MEDS: TAMSULOSIN 0.4 MG CAP.ER.24H PO SCH (08:37)
[2020-02-22] MEDS: CITALOPRAM HYDROBROMIDE 20 MG TAB PO SCH (08:37)
[2020-02-22] MEDS: CHOLECALCIFEROL 1,000 UNIT TAB PO SCH (08:37)
[2020-02-22] MEDS: ENOXAPARIN 100 MG/ML SYRINGE SQ SCH ×2 (08:37→20:14)
[2020-02-22] MEDS: dexAMETHasone 2 MG TAB PO SCH (08:37)
[2020-02-22] MEDS: ATORVASTATIN 20 MG TAB PO SCH (08:37)
[2020-02-22] MEDS: ASCORBIC ACID 500 MG TAB PO SCH (08:37)
[2020-02-22] MEDS: ZINC SULFATE 220 MG CAP PO SCH (08:37)
[2020-02-22] MEDS: PANTOPRAZOLE 40 MG TABLET PO SCH (08:37)
[2020-02-22 09:48] LABS: African American GFR (CKD) 109.4 (60.0-200.0); Albumin 3.5 g/dL (3.80-4.90); Albumin/Globulin Ratio 1.94 (1.60-3.17); Anion Gap 8.5 mmol/L (4.00-12.00); BUN/Creat Ratio 27.5 Ratio (12.00-20.00); C Reactive Protein 4.2 mg/dL (0.0-0.8); Calcium 8.5 mg/dL (8.7-10.3); Carbon Dioxide 24.5 mmol/L (21.6-31.8); Globulin 1.8 g/dL (1.6-3.3); Magnesium 1.8 mg/dL (1.5-2.4); Non-African American GFR(CKD) 94.4 (60.0-200.0); Potassium 3.8 mmol/L (3.5-5.5); Total Bilirubin 0.4 mg/dL (0.3-1.2); Total Protein 5.3 g/dL (6.2-8.2)
--- NOTE | 2020-02-22 11:07 | P.PN ---
Subjective Progress Note Date: 02/22/20 This is a 64-year-old male patient of mine with past medical history of gastroesophageal reflux disease, hyperlipidemia, benign prostatic hypertrophy, recurrent depression. Patient was tested his Covid positive on Thursday of last week and presents with complaints chest congestion and cough as well as chest discomfort secondary to coughing, increasing shortness of breath. He denies any abdominal pain, vomiting or diarrhea. He initially presented to the emergency center on February 15 with worsening symptoms and was discharged home on prednisone 50 mg 5 days, Z-Angelito. Patient returned today to the emergency center with continued and persistent worsening dyspnea. Patient continues to have chest discomfort with deep inspiration and coughing. Temperature max 100.9, heart rate 86, blood pressure 130/82, pulse ox 95% on room air. CBC was unremarkable except for lymphocytopenia at 0.6. D-dimer 16.05. C-reactive protein 50.5. Troponin negative. Electrolytes and renal function unremarkable. Chest x-ray reveals developing bibasilar infiltrates greater on the left base. Findings can be compatible with atypical pneumonia. CT angiogram of the chest revealed no evidence of pulmonary embolism. Bilateral groundglass infiltrates compatible with Covid [address] Pichardo was contacted by ER physician and patient not considered a candidate for Remdesivir. He was started on IV Decadron, admitted to the Medr floor and consults with pulmonary medicine and infectious disease. 02/20: Patient continues to have shortness of breath and dyspnea with exertion. Pulse ox is 91% on room air, he has been afebrile, blood pressure 128/76, heart rate 75. Repeat blood work reveals WBC 3.5 and lymphocytes remain low at 0.6. D-dimer slightly improved to 13.68. C-reactive protein improved to 6 and pro- calcitonin 0.03. Patient has been seen by infectious disease with recommen dations to continue Decadron Lovenox and supplements. No plan for Remdesivir. We'll plan to monitor patient overnight and in he is oxygenating well and inflammatory markers are improved, anticipate discharge home. 02/21: Patient was seen yesterday by pulmonary medicine and started on REM to severe, today is day #2/5 of treatment, continue Lovenox increased to 100 mg every 12 hours and continue Decadron. Patient has been afebrile, heart rate 71, blood pressure 155/92, pulse ox 93% to 98% on room air. Repeat blood work reveals WBC 5.0, hemoglobin 13.6, platelet count 169. Lymphocytes are normal at 1.1. Electrolytes and renal function normal. C-reactive protein down to 4.2. Objective - Vital Signs Vital signs: Vital Signs Temp 98.0 F 02/22/20 05:37 Pulse 71 02/22/20 05:37 Resp 16 02/22/20 05:37 BP 155/92 02/22/20 05:37 Pulse Ox 93 L 02/22/20 05:37 Intake & Output 02/21/20 02/22/20 02/22/20 18:59 06:59 18:59 Intake Total 410 580 Balance 410 580 Intake: Intake, IV Titration 410 Amount Remdesivir (Eua) 100 mg 250 In Sodium Chloride 0.9% 250 ml @ 250 mls/hr IVPB Q24H [facility] Rx#:[id number] Sodium Chloride 0.9% 1, 160 000 ml @ 20 mls/hr IV . Q24H [facility] Rx#:[id number] Oral 580 Other: Voiding Method Toilet Toilet # Voids 1 - Exam Review of Systems Cardiovascular: Reports chest pain, Reports dyspnea on exertion, Reports shortness of breath, Denies edema, Denies leg edema, Denies lightheadedness, Denies palpitations, Denies syncope Respiratory: Reports congestion, Reports cough, Reports cough with sputum, Reports dyspnea, Reports respiratory infections, Reports wheezing, Denies excessive sputum, Denies hemoptysis, Denies home oxygen, reports dyspnea with exertion Gastrointestinal: Denies abdominal pain, Denies diarrhea, Denies nausea, Denies vomiting Genitourinary: Denies dysuria, Denies urinary hesitancy, Denies urinary retention Musculoskeletal: Denies frequent falls, Denies gait dysfunction, Denies myalgias Integumentary: Denies pruritus, Denies rash, Denies wounds Neurological: Denies change in mentation, Denies change in speech, Denies confusion, Denies headaches, Denies numbness, Denies seizures, Denies weakness Psychiatric: Denies anxiety, Denies depression Endocrine: Denies fatigue, Denies weight change Physical examination: HEENT: Head is atraumatic, normocephalic, pupils were equal round reactive to light and accommodations, extraocular muscle movement were intact, mucous membranes of the mouth are somewhat dry . Neck: Supple, no JVP, decreased carotid upstroke brisk. Chest: Decreased breath sounds at the bases, few rhonchi, no expiratory wheezes, no chest wall tenderness, no intercostal retractions. Heart: First heart sound is depressed, second heart sound is normal, no murmur. Abdomen: Soft, no tenderness, no distention, normal bowel sounds. Extremities: There is no edema, no calf tenderness, dorsalis pedis +2 bilaterally. Neurologic examination: Patient is awake alert and oriented 3, cranial nerves II-12 grossly intact. - Labs CBC & Chem 7: 02/22/20 05:22 02/22/20 05:22 Labs: Abnormal Lab Results - Last 24 Hours (Table) 02/22/20 02/22/20 02/22/20 Range/Units 05:22 05:22 05:22 Hct 38.9 L (39.0-53.0) % D-Dimer 12.69 H (<0.60) mg/L FEU BUN/Creatinine Ratio 27.50 H (12.00-20.00) Ratio Calcium 8.5 L (8.7-10.3) mg/dL C-Reactive Protein 4.2 H (0.0-0.8) mg/dL Total Protein 5.3 L (6.2-8.2) g/dL Albumin 3.50 L (3.80-4.90) g/dL Assessment and Plan Assessment: 1. Acute COVID-19 pneumonia diagnosed 6 days ago and out of the timeframe for Remdesivir. [facility] consult with pulmonary medicine and infectious disease appreciated. Patient continued on vitamin C, vitamin D, zinc, dexamethasone 6 mg daily, Lovenox 100 mg subcu twice daily. Patient has been started on REM disc severe, on day #2/5 of treatment. 2. Febrile illness with elevated inflammatory markers secondary to Covid 19. Continue as in #1. 3. Hyperlipidemia. Continue Lipitor 20 mg daily. 4. Gastroesophageal reflux disease and GI prophylaxis. Omeprazole 20 mg daily. 5. Recurrent depression. Continue Celexa 20 mg daily. 6. Benign prostatic hypertrophy. Continue Flomax 0.4 mg daily and monitor for urinary retention. 7. Remote history of tobacco use. quit. 8. DVT prophylaxis. we will continue wit Lovenox 100 mg SC twice daily. 9. Admits to inpatient , estimated length of stay 2 midnights. 10. full code.
--- NOTE | 2020-02-22 14:38 | P.PN ---
Subjective Progress Note Date: 02/22/20 Principal diagnosis: Dyspnea, fever This is a 64-year-old white male patient of Dr. Velasquez, who presented to the emergency department on 02/20/2020 for evaluation of fever, runny nose, sore throat and cough. His onset of symptoms was approximately 10 days ago. His symptoms continued to progress rather than improved, patient was tested for COVID 19 last Thursday and he got positive results on Thursday. Patient was seen in the emergency department about 4 days ago with similar symptoms, however at that time he did not require supplemental oxygen, and was discharged home on or al steroids and vancomycin. Patient came back to the emergency room department for reevaluation with worsening shortness of breath, exertional dyspnea, cough which is dry in nature, and continued low-grade fever, and emergency department patient had a fever of 100.9F. His pulse ox is 91% on room air, he is dyspneic with minimal exertion, his chest x-ray shows bibasilar developing infiltrates gr eater at the left base. His blood work showed lymphopenia with lymphocytic, 0.6, d-dimer was significantly elevated at 16.05, sodium of 135, CO2 was 21, the rest of electrolytes and renal profile were within normal limits, troponin was less than 0.012, CRP was 50.5, follow-up CRP was 6.0, and pro-calcitonin level was negative at 0.03. CTA chest was obtained showing no evidence of pulmonary embolism at this time, and it showed bilateral groundglass infiltrates compatible with COVID 19 pneumonia. On 02/22/2020 patient seen in follow-up on medical surgical floor, patient had tested positive for COVID 19 on an outpatient basis last Thursday, we started him on Remdesivir treatment last night, and today is his day 2 of treatment, overall he states he is feeling better, he is breathing comfortably, he is on room air, pulse ox 91-93%, hemodynamically stable, his been afebrile. Also continues on oral Decadron, she is on therapeutic dose of Lovenox for increased d-dimer and today's d-dimer is 12.69. Overall his inflammatory markers came down, pro- calcitonin is negative at 0.03. Objective - Vital Signs Vital signs: Vital Signs Temp 97.8 F 02/22/20 13:25 Pulse 65 02/22/20 13:25 Resp 17 02/22/20 13:25 BP 135/83 02/22/20 13:25 Pulse Ox 91 L 02/22/20 13:25 Intake & Output 02/21/20 02/22/20 02/22/20 18:59 06:59 18:59 Intake Total 410 580 Balance 410 580 Intake: Intake, IV Titration 410 Amount Remdesivir (Eua) 100 mg 250 In Sodium Chloride 0.9% 250 ml @ 250 mls/hr IVPB Q24H [facility] Rx#:[id number] Sodium Chloride 0.9% 1, 160 000 ml @ 20 mls/hr IV . Q24H [facility] Rx#:[id number] Oral 580 Other: Voiding Method Toilet Toilet # Voids 1 - Exam GENERAL EXAM: Alert, pleasant, 64-year-old white male on room air with a pulse ox of 91% comfortable in no apparent distress. HEAD: Normocephalic/atraumatic. EYES: Normal reaction of pupils, equal size. Conjunctiva pink, sclera white. NOSE: Clear with pink turbinates. THROAT: No erythema or exudates. NECK: No masses, no JVD, no thyroid enlargement, no adenopathy. CHEST: No chest wall deformity. Symmetrical expansion. LUNGS: Equal air entry with no crackles, wheeze, rhonchi or dullness. CVS: Regular rate and rhythm, normal S1 and S2, no gallops, no murmurs, no rubs ABDOMEN: Soft, nontender. No hepatosplenomegaly, normal bowel sounds, no guarding or rigidity. EXTREMITIES: No clubbing, no edema, no cyanosis, 2+ pulses and upper and lower extremities. MUSCULOSKELETAL: Muscle strength and tone normal. SPINE: No scoliosis or deformity SKIN: No rashes CENTRAL NERVOUS SYSTEM: Alert and oriented -3. No focal deficits, tone is normal in all 4 extremities. PSYCHIATRIC: Alert and oriented -3. Appropriate affect. Intact judgment and insight. - Labs CBC & Chem 7: 02/22/20 05:22 02/22/20 05:22 Labs: Abnormal Lab Results - Last 24 Hours (Table) 02/22/20 02/22/20 02/22/20 Range/Units 05:22 05:22 05:22 Hct 38.9 L (39.0-53.0) % D-Dimer 12.69 H (<0.60) mg/L FEU BUN/Creatinine Ratio 27.50 H (12.00-20.00) Ratio Calcium 8.5 L (8.7-10.3) mg/dL C-Reactive Protein 4.2 H (0.0-0.8) mg/dL Total Protein 5.3 L (6.2-8.2) g/dL Albumin 3.50 L (3.80-4.90) g/dL Assessment and Plan Plan: Assessment: #1. Acute hypoxic respiratory failure related to acute COVID 19 pneumonitis, with progressive symptoms of dyspnea, cough, and ongoing fever, will start on a Remdesivir on 02/21/2020 #2. Symptoms of dyspnea, cough, fever #3. Significantly elevated d-dimer, with no evidence of pulmonary embolism on CTA chest, will increase to therapeutic doses of Lovenox #4. Elevated CRP related to acute COVID 19 related pneumonia #5. GERD/reflux #6. Hyperlipidemia #7. Depression #8. Nonsmoker Plan: Continue Remdesivir course, continue Decadron, continue therapeutic doses of Lovenox, follow-up d-dimer still significantly elevated, but overall patient is feeling better, breathing comfortably, we'll continue to monitor. Today's chest x-ray has been reviewed showing mostly chronic changes without acute pulmonary disease. The groundglass opacities bilaterally could be appreciated more on the CTA chest, chest x-ray, clinically he is improving, will continue current medical treatment I performed a history & physical examination of the patient and discussed their management with my nurse practitioner, Briseida Grover. I reviewed the nurse pr actitioner's note and agree with the documented findings and plan of care. Lung sounds are positive for diminished breath sounds. The findings and the impression was discussed with the patient. I attest to the documentation by the nurse practitioner. Time with Patient: Less than 30
[2020-02-22] MEDS: SODIUM CHLORIDE 0.9% 1,000 ML IV SCH (17:14)
[2020-02-22] MEDS: REMDESIVIR (EUA) 100 MG in SODIUM CHLORIDE 0.9% 250 ML IVPB SCH (17:14)
--- NOTE | 2020-02-23 01:27 | PN ---
PROGRESS NOTE DATE OF SERVICE: 02/22/2020 REASON FOR FOLLOWUP: COVID-19 infection. INTERVAL HISTORY: Patient is currently afebrile. The patient mentioned he is breathing more comfortably. He is able to take a deep breath. He did have minimal cough. Not bringing up any sputum. No nausea, no vomiting. No abdominal pain or diarrhea. PHYSICAL EXAMINATION: Blood pressure 139/82 with a pulse of 73. Temperature is 97.7. He is 92% on room air. General description is a middle-aged male lying in bed in no distress. RESPIRATORY SYSTEM: Unlabored breathing. Decreased breath sounds in the bases, no wheeze. Heart S1, S2. Regular rate and rhythm. ABDOMEN: Soft, no tenderness. LABORATORY DATA: Hemoglobin 13.6, white count 5.0, BUN of 22, creatinine 0.8. IMPRESSION/PLAN: This patient with acute COVID-19 infection in this patient currently being treated with Remdesivir, Dexamethasone, Lovenox to continue while monitoring clinical course closely. Continue supportive care. MMODL / IJN: [id number] /
[2020-02-23] MEDS: CITALOPRAM HYDROBROMIDE 20 MG TAB PO SCH (09:13)
[2020-02-23] MEDS: ZINC SULFATE 220 MG CAP PO SCH (09:13)
[2020-02-23] MEDS: TAMSULOSIN 0.4 MG CAP.ER.24H PO SCH (09:13)
[2020-02-23] MEDS: PANTOPRAZOLE 40 MG TABLET PO SCH (09:14)
[2020-02-23] MEDS: CHOLECALCIFEROL 1,000 UNIT TAB PO SCH (09:14)
[2020-02-23] MEDS: ASCORBIC ACID 500 MG TAB PO SCH (09:14)
[2020-02-23] MEDS: ENOXAPARIN 100 MG/ML SYRINGE SQ SCH ×2 (09:14→20:22)
[2020-02-23] MEDS: dexAMETHasone 2 MG TAB PO SCH (09:14)
[2020-02-23] MEDS: ATORVASTATIN 20 MG TAB PO SCH (09:14)
--- NOTE | 2020-02-23 09:59 | P.PN ---
Subjective Progress Note Date: 02/23/20 This is a 64-year-old male patient of mine with past medical history of gastroesophageal reflux disease, hyperlipidemia, benign prostatic hypertrophy, recurrent depression. Patient was tested his Covid positive on Thursday of last week and presents with complaints chest congestion and cough as well as chest discomfort secondary to coughing, increasing shortness of breath. He denies any abdominal pain, vomiting or diarrhea. He initially presented to the emergency center on February 15 with worsening symptoms and was discharged home on prednisone 50 mg 5 days, Z-Angelito. Patient returned today to the emergency center with continued and persistent worsening dyspnea. Patient continues to have chest discomfort with deep inspiration and coughing. Temperature max 100.9, heart rate 86, blood pressure 130/82, pulse ox 95% on room air. CBC was unremarkable except for lymphocytopenia at 0.6. D-dimer 16.05. C-reactive protein 50.5. Troponin negative. Electrolytes and renal function unremarkable. Chest x-ray reveals developing bibasilar infiltrates greater on the left base. Findings can be compatible with atypical pneumonia. CT angiogram of the chest revealed no evidence of pulmonary embolism. Bilateral groundglass infiltrates compatible with Covid [address] Pichardo was contacted by ER physician and patient not considered a candidate for Remdesivir. He was started on IV Decadron, admitted to the Medr floor and consults with pulmonary medicine and infectious disease. 02/20: Patient continues to have shortness of breath and dyspnea with exertion. Pulse ox is 91% on room air, he has been afebrile, blood pressure 128/76, heart rate 75. Repeat blood work reveals WBC 3.5 and lymphocytes remain low at 0.6. D-dimer slightly improved to 13.68. C-reactive protein improved to 6 and pro- calcitonin 0.03. Patient has been seen by infectious disease with recommen dations to continue Decadron Lovenox and supplements. No plan for Remdesivir. We'll plan to monitor patient overnight and in he is oxygenating well and inflammatory markers are improved, anticipate discharge home. 02/21: Patient was seen yesterday by pulmonary medicine and started on REM to severe, today is day #2/5 of treatment, continue Lovenox increased to 100 mg every 12 hours and continue Decadron. Patient has been afebrile, heart rate 71, blood pressure 155/92, pulse ox 93% to 98% on room air. Repeat blood work reveals WBC 5.0, hemoglobin 13.6, platelet count 169. Lymphocytes are normal at 1.1. Electrolytes and renal function normal. C-reactive protein down to 4.2. 02/22: Patient sitting up in a chair in no apparent distress, he complains of pleurisy on and off, he denies any cough or hemoptysis, he has no abdominal pain, nausea or vomiting or diarrhea, he has no loss of taste or smell, he seems to be tolerating his treatment very well, his the 3 out of 5 of Remdesivir. Objective - Vital Signs Vital signs: Vital Signs Temp 98.1 F 02/23/20 04:00 Pulse 70 02/23/20 04:00 Resp 18 02/23/20 04:00 BP 150/80 02/23/20 04:00 Pulse Ox 95 02/23/20 04:00 Intake & Output 02/22/20 02/23/20 02/23/20 18:59 06:59 18:59 Intake Total 250 800 Balance 250 800 Intake: Intake, IV Titration 250 300 Amount Remdesivir (Eua) 100 mg 250 In Sodium Chloride 0.9% 250 ml @ 250 mls/hr IVPB Q24H [facility] Rx#:[id number] Sodium Chloride 0.9% 1, 300 000 ml @ 20 mls/hr IV . Q24H [facility] Rx#:[id number] Oral 500 Other: Voiding Method Toilet # Voids 5 - Exam Review of Systems Cardiovascular: Reports chest pain, Reports dyspnea on exertion, Reports shortness of breath, Denies edema, Denies leg edema, Denies lightheadedness, Denies palpitations, Denies syncope Respiratory: Reports congestion, Reports cough, Reports cough with sputum, Reports dyspnea, Reports respiratory infections, Reports wheezing, Denies e xcessive sputum, Denies hemoptysis, Denies home oxygen, reports dyspnea with exertion Gastrointestinal: Denies abdominal pain, Denies diarrhea, Denies nausea, Denies vomiting Genitourinary: Denies dysuria, Denies urinary hesitancy, Denies urinary ret ention Musculoskeletal: Denies frequent falls, Denies gait dysfunction, Denies myalgias Integumentary: Denies pruritus, Denies rash, Denies wounds Neurological: Denies change in mentation, Denies change in speech, Denies conf usion, Denies headaches, Denies numbness, Denies seizures, Denies weakness Psychiatric: Denies anxiety, Denies depression Endocrine: Denies fatigue, Denies weight change Physical examination: HEENT: Head is atraumatic, normocephalic, pupils were equal round reactive to light and accommodations, extraocular muscle movement were intact, mucous me mbranes of the mouth are somewhat dry . Neck: Supple, no JVP, decreased carotid upstroke brisk. Chest: Decreased breath sounds at the bases, few rhonchi, no expiratory wheezes, no chest wall tenderness, no intercostal retractions. Heart: First heart sound is depressed, second heart sound is normal, no murmur. Abdomen: Soft, no tenderness, no distention, normal bowel sounds. Extremities: There is no edema, no calf tenderness, dorsalis pedis +2 bilaterally. Neurologic examination: Patient is awake alert and oriented 3, cranial nerves II-12 grossly intact. - Labs CBC & Chem 7: 02/22/20 05:22 02/22/20 05:22 Assessment and Plan Assessment: 1. Acute COVID-19 pneumonia . Continue Remdesivir date #3 out of 5. We'll continue status parameter, Hep-Lock his IV, monitor the patient very closely, continue with Decadron 6 mg IV push every 6 hours, continue with Lovenox 100 mg subcu Thursday every 12 hours, continue with vitamin C vitamin D and 6 of it, continue with the droplet precautions and hypertension. 2. Febrile illness with elevated inflammatory markers secondary to Covid 19. Continue as in #1. 3. Hyperlipidemia. Continue Lipitor 20 mg daily. 4. Gastroesophageal reflux disease and GI prophylaxis. Omeprazole 20 mg daily. 5. Recurrent depression. Continue Celexa 20 mg daily. 6. Benign prostatic hypertrophy. Continue Flomax 0.4 mg daily and monitor for urinary retention. 7. Remote history of tobacco use. quit. 8. DVT prophylaxis. we will continue wit Lovenox 100 mg SC twice daily. 9. Home on Thursday
--- NOTE | 2020-02-23 13:46 | P.PN ---
Subjective Progress Note Date: 02/23/20 Principal diagnosis: CoVID 19 infection This is a 64-year-old white male patient of Dr. Velasquez, who presented to the emergency department on 02/20/2020 for evaluation of fever, runny nose, sore throat and cough. His onset of symptoms was approximately 10 days ago. His symptoms continued to progress rather than improved, patient was tested for COVID 19 last Thursday and he got positive results on Thursday. Patient was seen in the emergency department about 4 days ago with similar symptoms, however at that time he did not require supplemental oxygen, and was discharged home on oral steroids and vancomycin. Patient came back to the emergency room department for reevaluation with worsening shortness of breath, exertional dyspnea, cough which is dry in nature, and continued low-grade fever, and emergency department patient had a fever of 100.9F. His pulse ox is 91% on r oom air, he is dyspneic with minimal exertion, his chest x-ray shows bibasilar developing infiltrates greater at the left base. His blood work showed lymphopenia with lymphocytic, 0.6, d-dimer was significantly elevated at 16.05, sodium of 135, CO2 was 21, the rest of electrolytes and renal profile were within normal limits, troponin was less than 0.012, CRP was 50.5, follow-up CRP was 6.0, and pro-calcitonin level was negative at 0.03. CTA chest was obtained showing no evidence of pulmonary embolism at this time, and it showed bilateral groundglass infiltrates compatible with COVID 19 pneumonia. On 02/22/2020 patient seen in follow-up on medical surgical floor, patient had tested positive for COVID 19 on an outpatient basis last Thursday, we started him on Remdesivir treatment last night, and today is his day 2 of treatment, overall he states he is feeling better, he is breathing comfortably, he is on room air, pulse ox 91-93%, hemodynamically stable, his been afebrile. Also continues on oral Decadron, she is on therapeutic dose of Lovenox for increased d-dimer and today's d-dimer is 12.69. Overall his inflammatory markers came down, pro- calcitonin is negative at 0.03. The patient is seen today 02/23/2020 in follow-up on the regular medical floor. He is currently sitting up at the bedside. Awake and alert in no acute distress. Breathing easier today compared to yesterday. He is maintaining O2 saturations in the 90s on room air. He's been afebrile. Hemodynamically s table. This is day #3 of Remdesivir. He remains on Lovenox, dexamethasone, along with vitamin supplements. Objective - Vital Signs Vital signs: Vital Signs Temp 98.1 F 02/23/20 11:17 Pulse 80 02/23/20 11:17 Resp 16 02/23/20 11:17 BP 164/85 02/23/20 11:17 Pulse Ox 90 L 02/23/20 11:17 Intake & Output 02/22/20 02/23/20 02/23/20 18:59 06:59 18:59 Intake Total 250 800 Balance 250 800 Intake: Intake, IV Titration 250 300 Amount Remdesivir (Eua) 100 mg 250 In Sodium Chloride 0.9% 250 ml @ 250 mls/hr IVPB Q24H [facility] Rx#:[id number] Sodium Chloride 0.9% 1, 300 000 ml @ 20 mls/hr IV . Q24H [facility] Rx#:[id number] Oral 500 Other: Voiding Method Toilet Toilet # Voids 5 - Exam GENERAL EXAM: Alert, pleasant, 64-year-old male patient on room air with a pulse ox of 90% comfortable in no apparent distress. HEAD: Normocephalic/atraumatic. EYES: Normal reaction of pupils, equal size. Conjunctiva pink, sclera white. NOSE: Clear with pink turbinates. THROAT: No erythema or exudates. NECK: No masses, no JVD, no thyroid enlargement, no adenopathy. CHEST: No chest wall deformity. Symmetrical expansion. LUNGS: Equal air entry with basilar crackles CVS: Regular rate and rhythm, normal S1 and S2, no gallops, no murmurs, no rubs ABDOMEN: Soft, nontender. No hepatosplenomegaly, normal bowel sounds, no guarding or rigidity. EXTREMITIES: No clubbing, no edema, no cyanosis, 2+ pulses and upper and lower extremities. MUSCULOSKELETAL: Muscle strength and tone normal. SPINE: No scoliosis or deformity SKIN: No rashes CENTRAL NERVOUS SYSTEM: Alert and oriented -3. No focal deficits, tone is normal in all 4 extremities. PSYCHIATRIC: Alert and oriented -3. Appropriate affect. Intact judgment and insight. - Labs CBC & Chem 7: 02/22/20 05:22 02/22/20 05:22 Assessment and Plan Assessment: #1. Acute hypoxic respiratory failure related to acute COVID 19 pneumonitis, with progressive symptoms of dyspnea, cough, and ongoing fever, started on a Remdesivir on 02/21/2020 #2. Symptoms of dyspnea, cough, fever #3. Significantly elevated d-dimer, with no evidence of pulmonary embolism on CTA chest, will increase to therapeutic doses of Lovenox #4. Elevated CRP related to acute COVID 19 related pneumonia #5. GERD/reflux #6. Hyperlipidemia #7. Depression #8. Nonsmoker Plan: The patient was seen and evaluated by Dr. Pichardo This is day #3 of Remdesivir Continue the current treatment plan Increase his activity as tolerated Repeat chest x-ray in a.m. We'll continue to follow I, the cosigning physician, performed a history & physical examination of the patient. Lungs sounds with basilar crackles. Maintaining good O2 saturations in the 90s on room air. I discussed the assessment and plan of care with my nurse practitioner, Angela George. I attest to the above note as dictated by her.
[2020-02-23] MEDS: REMDESIVIR (EUA) 100 MG in SODIUM CHLORIDE 0.9% 250 ML IVPB SCH (16:51)
--- NOTE | 2020-02-24 07:10 | PN ---
PROGRESS NOTE DATE OF SERVICE: 02/24/2020 REASON FOR FOLLOWUP: COVID-19 pneumonia. INTERVAL HISTORY: The patient is currently afebrile the patient is breathing more comfortably. He is able to take a deep breath. Did have minimal cough, no sputum, no nausea, vomiting, abdominal pain or diarrhea. PHYSICAL EXAMINATION: Blood pressure 128/78 with a pulse of 65, temperature 97.9. He is 93% on room air. General description is a middle-aged male up in the bed in no distress. Respiratory system: Unlabored breathing, decreased breath sounds in the base, with no wheeze. Heart S1, S2. Regular rate and rhythm. Abdomen is soft, no tenderness. LABS: Hemoglobin is 13.3, white count 5.0. D-dimer is 12.69. BUN of 22, creatinine 0.8. DIAGNOSTIC IMPRESSION AND PLAN: Patient with acute COVID-19 infection, currently being treated with dexamethasone, Lovenox, Remdesivir and zinc. Seems to have shown clinical response. To continue and monitor clinical course closely. MMODL / IJN: [id number] /
--- NOTE | 2020-02-24 07:53 | XR ---
EXAMINATION TYPE: XR chest 1V portable DATE OF EXAM: 02/24/2020 COMPARISON: 02/22/2020 INDICATION: Covid pneumonia TECHNIQUE: Single frontal view of the chest is obtained. FINDINGS: The heart size is normal. The pulmonary vasculature is normal. Patchy infiltrates are through the bilateral lungs, worse on the left. Findings can be compatible wit h Covid pneumonia in the proper clinical setting. Continued follow-up is recommended. IMPRESSION: 1. Patchy bilateral infiltrates, worse on the left. Findings are worsening over the interval. Continu ed follow-up is recommended.
--- NOTE | 2020-02-24 09:37 | P.PN ---
Subjective Progress Note Date: 02/24/20 This is a 64-year-old male patient of mine with past medical history of gastroesophageal reflux disease, hyperlipidemia, benign prostatic hypertrophy, recurrent depression. Patient was tested his Covid positive on Thursday of last week and presents with complaints chest congestion and cough as well as chest discomfort secondary to coughing, increasing shortness of breath. He denies any abdominal pain, vomiting or diarrhea. He initially presented to the emergency center on February 15 with worsening symptoms and was discharged home on prednisone 50 mg 5 days, Z-Angelito. Patient returned today to the emergency center with continued and persistent worsening dyspnea. Patient continues to have chest discomfort with deep inspiration and coughing. Temperature max 100.9, heart rate 86, blood pressure 130/82, pulse ox 95% on room air. CBC was unremarkable except for lymphocytopenia at 0.6. D-dimer 16.05. C-reactive protein 50.5. Troponin negative. Electrolytes and renal function unremarkable. Chest x-ray reveals developing bibasilar infiltrates greater on the left base. Findings can be compatible with atypical pneumonia. CT angiogram of the chest revealed no evidence of pulmonary embolism. Bilateral groundglass infiltrates compatible with Covid [address] Pichardo was contacted by ER physician and patient not considered a candidate for Remdesivir. He was started on IV Decadron, admitted to the Medr floor and consults with pulmonary medicine and infectious disease. 02/20: Patient continues to have shortness of breath and dyspnea with exertion. Pulse ox is 91% on room air, he has been afebrile, blood pressure 128/76, heart rate 75. Repeat blood work reveals WBC 3.5 and lymphocytes remain low at 0.6. D-dimer slightly improved to 13.68. C-reactive protein improved to 6 and pro- calcitonin 0.03. Patient has been seen by infectious disease with recommen dations to continue Decadron Lovenox and supplements. No plan for Remdesivir. We'll plan to monitor patient overnight and in he is oxygenating well and inflammatory markers are improved, anticipate discharge home. 02/21: Patient was seen yesterday by pulmonary medicine and started on REM to severe, today is day #2/5 of treatment, continue Lovenox increased to 100 mg every 12 hours and continue Decadron. Patient has been afebrile, heart rate 71, blood pressure 155/92, pulse ox 93% to 98% on room air. Repeat blood work reveals WBC 5.0, hemoglobin 13.6, platelet count 169. Lymphocytes are normal at 1.1. Electrolytes and renal function normal. C-reactive protein down to 4.2. 02/22: Patient sitting up in a chair in no apparent distress, he complains of pleurisy on and off, he denies any cough or hemoptysis, he has no abdominal pain, nausea or vomiting or diarrhea, he has no loss of taste or smell, he seems to be tolerating his treatment very well, his the 3 out of 5 of Remdesivir. 02/23: Patient sitting up in a chair in no apparent distress he continues to have some dry cough, no phlegm production, he continues to be somewhat short of breath with exertion his oxygen saturations 91% on room air, he has no abdominal pain, nausea vomiting or diarrhea he has not lost his taste or smell, is scheduled to get his fourth dose of Remdesivir today and will have another one tomorrow and after that he can be discharged home. Objective - Vital Signs Vital signs: Vital Signs Temp 97.5 F L 02/24/20 08:00 Pulse 71 02/24/20 08:00 Resp 18 02/24/20 08:00 BP 135/77 02/24/20 08:00 Pulse Ox 93 L 02/24/20 08:00 Intake & Output 02/23/20 02/24/20 02/24/20 18:59 06:59 18:59 Intake Total 1090 740 Balance 1090 740 Intake: Intake, IV Titration 410 240 Amount Remdesivir (Eua) 100 mg 250 In Sodium Chloride 0.9% 250 ml @ 250 mls/hr IVPB Q24H [facility] Rx#:[id number] Sodium Chloride 0.9% 1, 160 240 000 ml @ 20 mls/hr IV . Q24H [facility] Rx#:[id number] Oral 680 500 Other: Voiding Method Toilet Toilet # Voids 4 2 - Exam Review of Systems Cardiovascular: Reports chest pain, Reports dyspnea on exertion, Reports shortness of breath, Denies edema, Denies leg edema, Denies lightheadedness, Denies palpitations, Denies syncope Respiratory: Reports congestion, Reports cough, Reports cough with sputum, Reports dyspnea, Reports respiratory infections, Reports wheezing, Denies excessive sputum, Denies hemoptysis, Denies home oxygen, reports dyspnea with exertion Gastrointestinal: Denies abdominal pain, Denies diarrhea, Denies nausea, Denies vomiting Genitourinary: Denies dysuria, Denies urinary hesitancy, Denies urinary retention Musculoskeletal: Denies frequent falls, Denies gait dysfunction, Denies myalgias Integumentary: Denies pruritus, Denies rash, Denies wounds Neurological: Denies change in mentation, Denies change in speech, Denies confusion, Denies headaches, Denies numbness, Denies seizures, Denies weakness Psychiatric: Denies anxiety, Denies depression Endocrine: Denies fatigue, Denies weight change Physical examination: HEENT: Head is atraumatic, normocephalic, pupils were equal round reactive to light and accommodations, extraocular muscle movement were intact, mucous membranes of the mouth are somewhat dry . Neck: Supple, no JVP, decreased carotid upstroke brisk. Chest: Decreased breath sounds at the bases, few rhonchi, no expiratory wheezes, no chest wall tenderness, no intercostal retractions. Heart: First heart sound is depressed, second heart sound is normal, no murmur. Abdomen: Soft, no tenderness, no distention, normal bowel sounds. Extremities: There is no edema, no calf tenderness, dorsalis pedis +2 bilaterally. Neurologic examination: Patient is awake alert and oriented 3, cranial nerves II-12 grossly intact. - Labs CBC & Chem 7: 02/24/20 12:56 02/24/20 12:56 Assessment and Plan Assessment: 1. Acute COVID-19 pneumonia . Continue Remdesivir date #4 out of 5. We'll continue status parameter, Hep-Lock his IV, monitor the patient very closely, continue with Decadron 6 mg IV push every 6 hours, continue with Lovenox 100 mg subcu Thursday every 12 hours, continue with vitamin C vitamin D and 6 of it, continue with the droplet precautions and hypertension. 2. Febrile illness with elevated inflammatory markers secondary to Covid 19. Continue as in #1. 3. Hyperlipidemia. Continue Lipitor 20 mg daily. 4. Gastroesophageal reflux disease and GI prophylaxis. Omeprazole 20 mg daily. 5. Recurrent depression. Continue Celexa 20 mg daily. 6. Benign prostatic hypertrophy. Continue Flomax 0.4 mg daily and monitor for urinary retention. 7. Remote history of tobacco use. quit. 8. DVT prophylaxis. we will continue wit Lovenox 100 mg SC twice daily. 9. Home on Thursday
[2020-02-24] MEDS: CITALOPRAM HYDROBROMIDE 20 MG TAB PO SCH (09:57)
[2020-02-24] MEDS: dexAMETHasone 2 MG TAB PO SCH (09:57)
[2020-02-24] MEDS: ASCORBIC ACID 500 MG TAB PO SCH (09:57)
[2020-02-24] MEDS: ZINC SULFATE 220 MG CAP PO SCH (09:58)
[2020-02-24] MEDS: PANTOPRAZOLE 40 MG TABLET PO SCH (09:58)
[2020-02-24] MEDS: TAMSULOSIN 0.4 MG CAP.ER.24H PO SCH (09:58)
[2020-02-24] MEDS: ATORVASTATIN 20 MG TAB PO SCH (09:58)
[2020-02-24] MEDS: CHOLECALCIFEROL 1,000 UNIT TAB PO SCH (09:58)
[2020-02-24] MEDS: ENOXAPARIN 100 MG/ML SYRINGE SQ SCH ×2 (09:59→21:04)
[2020-02-24 13:29] LABS: Basophils % (A) 0 %; Eosinophils # (A) 0.1 k/uL (0-0.7); Eosinophils % (A) 1 %; HCT 42.6 % (39.0-53.0); HGB 14.2 gm/dL (13.0-17.5); Lymphocytes # (A) 0.7 k/uL (1.0-4.8); Lymphocytes % (A) 7 %; MCH 30.1 pg (25.0-35.0); MCHC 33.3 g/dL (31.0-37.0); MCV 90.2 fL (80.0-100.0); Mean Platelet Volume 8.8; Monocytes # (A) 0.3 k/uL (0-1.0); Monocytes % (A) 3 %; Neutrophils # (A) 8.5 k/uL (1.3-7.7); Neutrophils % (A) 88 %; Platelet Count 234 k/uL (150-450); RBC 4.72 m/uL (4.30-5.90); RDW 12.8 % (11.5-15.5); WBC 9.7 k/uL (3.8-10.6)
--- NOTE | 2020-02-24 14:15 | P.PN ---
Subjective Progress Note Date: 02/24/20 Principal diagnosis: Dyspnea, fever This is a 64-year-old white male patient of Dr. Velasquez, who presented to the emergency department on 02/20/2020 for evaluation of fever, runny nose, sore throat and cough. His onset of symptoms was approximately 10 days ago. His symptoms continued to progress rather than improved, patient was tested for COVID 19 last Thursday and he got positive results on Thursday. Patient was seen in the emergency department about 4 days ago with similar symptoms, however at that time he did not require supplemental oxygen, and was discharged home on or al steroids and vancomycin. Patient came back to the emergency room department for reevaluation with worsening shortness of breath, exertional dyspnea, cough which is dry in nature, and continued low-grade fever, and emergency department patient had a fever of 100.9F. His pulse ox is 91% on room air, he is dyspneic with minimal exertion, his chest x-ray shows bibasilar developing infiltrates gr eater at the left base. His blood work showed lymphopenia with lymphocytic, 0.6, d-dimer was significantly elevated at 16.05, sodium of 135, CO2 was 21, the rest of electrolytes and renal profile were within normal limits, troponin was less than 0.012, CRP was 50.5, follow-up CRP was 6.0, and pro-calcitonin level was negative at 0.03. CTA chest was obtained showing no evidence of pulmonary embolism at this time, and it showed bilateral groundglass infiltrates compatible with COVID 19 pneumonia. On 02/22/2020 patient seen in follow-up on medical surgical floor, patient had tested positive for COVID 19 on an outpatient basis last Thursday, we started him on Remdesivir treatment last night, and today is his day 2 of treatment, overall he states he is feeling better, he is breathing comfortably, he is on room air, pulse ox 91-93%, hemodynamically stable, his been afebrile. Also continues on oral Decadron, she is on therapeutic dose of Lovenox for increased d-dimer and today's d-dimer is 12.69. Overall his inflammatory markers came down, pro- calcitonin is negative at 0.03. On 02/24/2020 patient seen in follow-up on medical surgical floor. He states his breathing is improving, his exertional dyspnea is improving, is currently on room air, his pulse ox 93%, hemodynamically stable, his been afebrile. He continues on Remdesivir, today's is day 4 of treatment. Patient is also on oral Decadron, and therapeutic doses of Lovenox for increased d-dimer remains elevated on today's labs at 13.9. Chest x-ray shows patchy bilateral infiltrates worse on the left, with some worsening over the interval. Objective - Vital Signs Vital signs: Vital Signs Temp 97.5 F L 02/24/20 08:00 Pulse 71 02/24/20 08:00 Resp 18 02/24/20 08:00 BP 135/77 02/24/20 08:00 Pulse Ox 93 L 02/24/20 08:00 Intake & Output 02/23/20 02/24/20 02/24/20 18:59 06:59 18:59 Intake Total 1090 740 Balance 1090 740 Intake: Intake, IV Titration 410 240 Amount Remdesivir (Eua) 100 mg 250 In Sodium Chloride 0.9% 250 ml @ 250 mls/hr IVPB Q24H [facility] Rx#:[id number] Sodium Chloride 0.9% 1, 160 240 000 ml @ 20 mls/hr IV . Q24H [facility] Rx#:[id number] Oral 680 500 Other: Voiding Method Toilet Toilet Toilet # Voids 4 2 - Exam GENERAL EXAM: Alert, pleasant, 64-year-old white male on room air with a pulse ox of 93% comfortable in no apparent distress. HEAD: Normocephalic/atraumatic. EYES: Normal reaction of pupils, equal size. Conjunctiva pink, sclera white. NOSE: Clear with pink turbinates. THROAT: No erythema or exudates. NECK: No masses, no JVD, no thyroid enlargement, no adenopathy. CHEST: No chest wall deformity. Symmetrical expansion. LUNGS: Equal air entry with no crackles, wheeze, rhonchi or dullness. CVS: Regular rate and rhythm, normal S1 and S2, no gallops, no murmurs, no rubs ABDOMEN: Soft, nontender. No hepatosplenomegaly, normal bowel sounds, no guarding or rigidity. EXTREMITIES: No clubbing, no edema, no cyanosis, 2+ pulses and upper and lower extremities. MUSCULOSKELETAL: Muscle strength and tone normal. SPINE: No scoliosis or deformity SKIN: No rashes CENTRAL NERVOUS SYSTEM: Alert and oriented -3. No focal deficits, tone is normal in all 4 extremities. PSYCHIATRIC: Alert and oriented -3. Appropriate affect. Intact judgment and insight. - Labs CBC & Chem 7: 02/24/20 12:56 02/22/20 05:22 Labs: Abnormal Lab Results - Last 24 Hours (Table) 02/24/20 02/24/20 Range/Units 12:56 12:56 Neutrophils # 8.5 H (1.3-7.7) k/uL Lymphocytes # 0.7 L (1.0-4.8) k/uL D-Dimer 13.92 H (<0.60) mg/L FEU Assessment and Plan Plan: Assessment: #1. Acute hypoxic respiratory failure related to acute COVID 19 pneumonitis, with progressive symptoms of dyspnea, cough, and ongoing fever, will start on a Remdesivir on 02/21/2020 #2. Symptoms of dyspnea, cough, fever #3. Significantly elevated d-dimer, with no evidence of pulmonary embolism on CTA chest, will increase to therapeutic doses of Lovenox #4. Elevated CRP related to acute COVID 19 related pneumonia #5. GERD/reflux #6. Hyperlipidemia #7. Depression #8. Nonsmoker Plan: Continue current medical treatment, clinically patient states he is feeling better, no acute events overnight, continue Remdesivir, continue Decadron and therapeutic dose Lovenox, today's chest x-ray reviewed, we some interval progression of bilateral infiltrates. Continue to follow and monitor oxygenation pattern, vital signs pattern I performed a history & physical examination of the patient and discussed their management with my nurse practitioner, Briseida Grover. I reviewed the nurse practitioner's note and agree with the documented findings and plan of care. Lung sounds are positive for diminished breath sounds. The findings and the impression was discussed with the patient. I attest to the documentation by the nurse practitioner. Time with Patient: Less than 30
[2020-02-24] MEDS: REMDESIVIR (EUA) 100 MG in SODIUM CHLORIDE 0.9% 250 ML IVPB SCH (17:53)
[2020-02-24 19:14] LABS: African American GFR (CKD) 109.4 (60.0-200.0); BUN/Creat Ratio 26.25 Ratio (12.00-20.00); C Reactive Protein 9.6 mg/dL (0.0-0.8); Calcium 8.9 mg/dL (8.7-10.3); Non-African American GFR(CKD) 94.4 (60.0-200.0); Potassium 3.9 mmol/L (3.5-5.5)
--- NOTE | 2020-02-24 23:16 | PN ---
PROGRESS NOTE DATE OF SERVICE: 02/24/2020 REASON FOR FOLLOWUP: Acute COVID-19 pneumonia. INTERVAL HISTORY: The patient is currently afebrile. The patient is feeling better. He is breathing comfortably. The patient is able to take a deep breath. Denies having any chest pain. Minimal cough. No sputum. No nausea, no vomiting. No abdominal pain or diarrhea. PHYSICAL EXAMINATION: Blood pressure 137/55 with a pulse of 73, temperature 97.6. He is 92% on room air. General description is a middle-aged male up in the bed in no distress. RESPIRATORY SYSTEM: Unlabored breathing. Clear to auscultation anteriorly. HEART: S1, S2. Regular rate and rhythm. ABDOMEN: Soft. No tenderness. LABS: Hemoglobin is 14.9, white count 9.7. CRP 9.6. DIAGNOSTIC IMPRESSION AND PLAN: Patient with acute COVID-19 pneumonia in this patient who seems to have shown overall clinical improvement. The patient is currently on remdesivir, dexamethasone, and Lovenox; to continue and monitor his clinical course closely. MMODL / IJN: [id number] /
[2020-02-25] MEDS: ZINC SULFATE 220 MG CAP PO SCH (08:14)
[2020-02-25] MEDS: ATORVASTATIN 20 MG TAB PO SCH (08:14)
[2020-02-25] MEDS: PANTOPRAZOLE 40 MG TABLET PO SCH (08:14)
[2020-02-25] MEDS: CITALOPRAM HYDROBROMIDE 20 MG TAB PO SCH (08:14)
[2020-02-25] MEDS: TAMSULOSIN 0.4 MG CAP.ER.24H PO SCH (08:14)
[2020-02-25] MEDS: ASCORBIC ACID 500 MG TAB PO SCH (08:14)
[2020-02-25] MEDS: dexAMETHasone 2 MG TAB PO SCH (08:14)
[2020-02-25] MEDS: CHOLECALCIFEROL 1,000 UNIT TAB PO SCH (08:15)
[2020-02-25] MEDS: ENOXAPARIN 100 MG/ML SYRINGE SQ SCH (08:15)
[2020-02-25 08:32] VITALS: RESP 15
--- NOTE | 2020-02-25 10:15 | XR ---
EXAMINATION TYPE: XR chest 1V DATE OF EXAM: 02/25/2020 CLINICAL HISTORY: Difficulty breathing and covid pneumonia progress study. TECHNIQUE: Single AP portable upright view of the chest is obtained. COMPARISON: Chest x-ray from one day earlier and older studies. FINDINGS: Chronic parenchymal changes with multifocal bilateral opacities greatest in the periphery of the left lung are redemonstrated. Cardiac silhouette size stable and upper limits of normal. No pl eural effusion or pneumothorax seen. Osseous structures are intact. IMPRESSION: Chronic parenchymal changes with bilateral multifocal acute infiltrates greatest in the l eft lung periphery consistent with covid-19 infection. No significant change from most recent x-ray.
[2020-02-25 14:14] VITALS: BP 113/54; PULSE 78; TEMP 98.8
--- NOTE | 2020-02-25 14:39 | P.DS ---
Providers Date of admission: 02/20/20 13:01 Expected date of discharge: 02/25/20 Attending physician: Jer Velasquez Consults: 02/20/20 12:48 Consult Physician Routine Consulting Provider: Bhumika Pichardo Consult Reason/Comments: covid Do you want consulting provider notified?: Already Contacted 02/20/20 13:04 Consult Physician Routine Consulting Provider: Ld Lennon Consult Reason/Comments: covid 19 Do you want consulting provider notified?: Yes Primary care physician: Jer Velasquez [facility] Course: This is a 64-year-old male patient of mine with past medical history of gastroesophageal reflux disease, hyperlipidemia, benign prostatic hypertrophy, recurrent depression. Patient was tested his Covid positive on Thursday of last week and presents with complaints chest congestion and cough as well as chest discomfort secondary to coughing, increasing shortness of breath. He denies any abdominal pain, vomiting or diarrhea. He initially presented to the emergency center on February 15 with worsening symptoms and was discharged home on prednisone 50 mg 5 days, Z-Angelito. Patient returned today to the emergency center with continued and persistent worsening dyspnea. Patient continues to have chest discomfort with deep inspiration and coughing. Temperature max 100.9, heart rate 86, blood pressure 130/82, pulse ox 95% on room air. CBC was unremarkable except for lymphocytopenia at 0.6. D-dimer 16.05. C-reactive protein 50.5. Troponin negative. Electrolytes and renal function unremarkable. Chest x-ray reveals developing bibasilar infiltrates greater on the left base. Findings can be compatible with atypical pneumonia. CT angiogram of the chest revealed no evidence of pulmonary embolism. Bilateral groundglass infiltrates compatible with Covid [address] Pichardo was contacted by ER physician and patient not considered a candidate for Remdesivir. He was started on IV Decadron, admitted to the Medr floor and consults with pulmonary medicine and infectious disease. 02/20: Patient continues to have shortness of breath and dyspnea with exertion. Pulse ox is 91% on room air, he has been afebrile, blood pressure 128/76, heart rate 75. Repeat blood work reveals WBC 3.5 and lymphocytes remain low at 0.6. D-dimer slightly improved to 13.68. C-reactive protein improved to 6 and pro- calcitonin 0.03. Patient has been seen by infectious disease with recommendations to continue Decadron Lovenox and supplements. No plan for Remdesivir. We'll plan to monitor patient overnight and in he is oxygenating well and inflammatory markers are improved, anticipate discharge home. 02/21: Patient was seen yesterday by pulmonary medicine and started on REM to severe, today is day #2/5 of treatment, continue Lovenox increased to 100 mg every 12 hours and continue Decadron. Patient has been afebrile, heart rate 71, blood pressure 155/92, pulse ox 93% to 98% on room air. Repeat blood work reveals WBC 5.0, hemoglobin 13.6, platelet count 169. Lymphocytes are normal at 1.1. Electrolytes and renal function normal. C-reactive protein down to 4.2. 02/22: Patient sitting up in a chair in no apparent distress, he complains of pleurisy on and off, he denies any cough or hemoptysis, he has no abdominal pain, nausea or vomiting or diarrhea, he has no loss of taste or smell, he seems to be tolerating his treatment very well, his the 3 out of 5 of Remdesivir. 02/23: Patient sitting up in a chair in no apparent distress he continues to have some dry cough, no phlegm production, he continues to be somewhat short of breath with exertion his oxygen saturations 91% on room air, he has no abdominal pain, nausea vomiting or diarrhea he has not lost his taste or smell, is scheduled to get his fourth dose of Remdesivir today and will have another one tomorrow and after that he can be discharged home. Discharge diagnoses: 1. Acute COVID-19 pneumonia . Continue Remdesivir date #5 of . 2. Febrile illness with elevated inflammatory markers secondary to Covid 19. 3. Hyperlipidemia. 4. Gastroesophageal reflux disease and GI prophylaxis. 5. Recurrent depression. 6. Benign prostatic hypertrophy. 7. Remote history of tobacco use. 8. DVT prophylaxis. Patient Condition at Discharge: Fair Plan - Discharge Summary Discharge Rx Participant: No New Discharge Prescriptions: No Action Tamsulosin HCl [Flomax] 0.4 mg PO DAILY Omeprazole [PriLOSEC] 20 mg PO DAILY Atorvastatin [Lipitor] 20 mg PO DAILY Citalopram Hydrobromide [CeleXA] 20 mg PO DAILY predniSONE 50 mg PO DAILY 5 Days #5 tab Azithromycin [Zithromax Z-pack (6 tabs)] See Taper PO DAILY Discharge Medication List Omeprazole [PriLOSEC] 20 mg PO DAILY 07/08/17 [History] Tamsulosin HCl [Flomax] 0.4 mg PO DAILY 07/08/17 [History] Atorvastatin [Lipitor] 20 mg PO DAILY 07/10/17 [History] Citalopram Hydrobromide [CeleXA] 20 mg PO DAILY 02/16/20 [History] predniSONE 50 mg PO DAILY 5 Days #5 tab 02/16/20 [Rx] Azithromycin [Zithromax Z-pack (6 tabs)] See Taper PO DAILY 02/20/20 [History] Follow up Appointment(s)/Referral(s): Jer Velasquez MD [Primary Care Provider] - 1-2 days
[2020-02-25] MEDS: REMDESIVIR (EUA) 100 MG in SODIUM CHLORIDE 0.9% 250 ML IVPB SCH (16:21)
--- NOTE | 2020-02-25 23:49 | PN ---
PROGRESS NOTE DATE OF SERVICE: 02/25/2020 REASON FOR FOLLOWUP: Acute COVID-19 pneumonia. INTERVAL HISTORY: Patient was seen on rounds this evening. The patient has been afebrile. The patient has been breathing more comfortably on room air. The patient denies having any chest pain or cough. No nausea, no vomiting. No abdominal pain, no diarrhea. PHYSICAL EXAMINATION: Blood pressure is 113/54 with a pulse of 78, temperature 98.8. He is 93% on room air. General description is a middle-aged male up in the bed in no distress. Respiratory system: Unlabored breathing, decreased breath sounds. No wheeze. HEART: S1, S2. Regular rate and rhythm. ABDOMEN: Soft, no tenderness. LABS: CRP is down to 8.8. Chest x-ray: Multifocal infiltrate. DIAGNOSTIC IMPRESSION AND PLAN: Patient with acute COVID-19 only clinical responding, had completed his therapy with Remdesivir, getting discharged on dexamethasone, zinc sulfate, and close outpatient followup. MMODL / IJN: [id number] /
[2020-02-26] MEDS ORDERED: dexAMETHasone 2 MG TAB PO SCH (09:00)
== END 2020-02-25 19:00 | disposition home or self-care (01) | DRG 177 ==
LOC: EC 09:22 → 6NMEDSUR 13:01
PROVIDERS: ADMIT Internal Medicine; ATTEND Internal Medicine
PROC: XW033E5 Introduction of Remdesivir Anti-infective into Peripheral Vein, Percutaneous Approach, New Technology Group 5 (ICD-10-PCS; principal; 2020-02-20)
DX: U07.1 COVID-19 (principal); J12.89 Other viral pneumonia; J96.01 Acute respiratory failure with hypoxia; F33.9 Major depressive disorder, recurrent, unspecified; E78.5 Hyperlipidemia, unspecified; I10 Essential (primary) hypertension; K21.9 Gastro-esophageal reflux disease without esophagitis; N40.0 Benign prostatic hyperplasia without lower urinary tract symptoms; M19.90 Unspecified osteoarthritis, unspecified site; G47.30 Sleep apnea, unspecified; Z79.899 Other long term (current) drug therapy; Z87.891 Personal history of nicotine dependence; Z98.890 Other specified postprocedural states; Z82.0 Family history of epilepsy and other diseases of the nervous system; Z82.49 Family history of ischemic heart disease and other diseases of the circulatory system; Z84.89 Family history of other specified conditions
CPT/HCPCS: 36415; 71045; 71275; 80048; 80053; 83735; 84145; 84484; 85025; 85379; 86140; 96361; 96374; 99285

== ENCOUNTER → 2020-10-17 | Outpatient (CLI) | payer BC ==
--- NOTE | 2020-10-17 14:41 | EST ---
EXERCISE STRESS AGE: 64 SEX: M HT: 6'1" WT: 225 lbs PROTOCOL: Kolby STAGE: 3 DURATION OF EXERCISE: 9:00 HEART RATE REST: 60 BLOOD PRESSURE REST: 133/79 MAXIMUM HEART RATE ACHIEVED: 152 MAXIMUM BLOOD PRESSURE: 197/77 85% MPHR: 133 100% MPHR: 156 METS: 10.3 INDICATION: Chest pain. CLINICAL INFORMATION: Baseline EKG shows sinus rhythm, normal axis, normal intervals. Patient exercised on Kolby protocol for 9 minutes achieving 10 METS, 97% of predicted maximal heart rate without chest pain or diagnostic ST-segment depression. CONCLUSIONS: 1. Good exercise tolerance. 2. Negative stress test by EKG criteria. MMODL / IJN: [id number] /
--- NOTE | 2020-10-17 15:43 | NM ---
EXAMINATION TYPE: NM stress cardiolite complete DATE OF EXAM: 10/17/2020 COMPARISON: NONE HISTORY: I25.119 Chest Pain due to CAD TECHNIQUE: After the intravenous administration of 9.5 mCi Tc 99m Sestamibi - Rest images obtained 6 0 minutes post injection. The patient exercised using a ILIANA protocol and 1 minute prior to peak e xercise was injected with 24.5 mCi Tc 99m Sestamibi - Stress images obtained 15 minutes post injectio n. FINDINGS: Targeted heart rate was achieved during performance of the study, patient achieved 97% of predicted m aximal heart rate. Review of stress and rest SPECT images demonstrates mild decreased uptake along th e inferolateral left ventricle on stress and rest images towards the apex, questionable decreased upt alexander on stress as compared to rest images along the inferolateral left ventricle. Gated analysis show s normal wall motion with an estimated left ventricular ejection fraction of 49 %. IMPRESSION: Suspect inferolateral left ventricular stress-induced myocardial ischemia along the inferolateral lef t ventricle, difficult to exclude prior infarct A Yellow level critical message alert has been initiated for Jer Velasquez MD via the [employer] Critical Results System on 10/17/2020 3:41 PM. This message alert has been sent to Jer Velasquez MD via the preferences provided by the clinician for the receipt of Radiology Critical Findings. Message ID [id number].
== END | disposition home or self-care (01) ==
LOC: RADNMMAIN 08:13
PROVIDERS: ATTEND Internal Medicine
DX: I25.119 Atherosclerotic heart disease of native coronary artery with unspecified angina pectoris (principal); R07.9 Chest pain, unspecified
CPT/HCPCS: 93017; 78452; A9500

== ENCOUNTER → 2020-10-31 | Outpatient (CLI) | payer BC ==
--- NOTE | 2020-10-31 07:44 | US ---
EXAMINATION TYPE: US gallbladder DATE OF EXAM: 10/31/2020 COMPARISON: NONE CLINICAL HISTORY: K21.00 GERD W/O Gastro-esophageal reflux disease. GERD EXAM MEASUREMENTS: Liver Length: 16.2 cm Gallbladder Wall: 0.2 cm CBD: 0.3 cm Right Kidney: 10.3 x 5.4 x 4.8 cm Pancreas: Difficult to evaluate due to overlying bowel gas Liver: Heterogeneous, difficult to penetrate, compatible with moderate fatty infiltration of the zheng er. Gallbladder: wnl Evidence for sonographic Ospina's sign: No CBD: wnl Right Kidney: wnl IMPRESSION: 1. Hepatomegaly with moderate fatty infiltration liver.
== END | disposition home or self-care (01) ==
LOC: RADUSWWP 07:05
PROVIDERS: ATTEND Internal Medicine
DX: K76.0 Fatty (change of) liver, not elsewhere classified (principal); R16.0 Hepatomegaly, not elsewhere classified
CPT/HCPCS: 76705

== ENCOUNTER → 2020-11-05 | Day surgery (SDC) | payer BC ==
[2020-11-02 09:21] VITALS: BMI 30.6
[~2020-11-05] MED LIST changes: +ALPRAZolam 0.25 MG TAB PO PRN; +ALPRAZolam 0.5 MG TAB PO PRN; +ASPIRIN 325 MG TAB PO ONE; +HEPARIN SODIUM 1,000 UN/ML (10ML VL) IV ONE; +HEPARIN SODIUM 1,000 UN/ML (10ML VL) ONE; +HEPARIN SODIUM,PORCINE 10,000 UNIT in SODIUM CHLORIDE 0.9% 1,000 ML IRRIGATION PRN; +HEPARIN SODIUM,PORCINE 2,500 UNIT in SODIUM CHLORIDE 0.9% 250 ML IRRIGATION PRN; +IOPAMIDOL-370 125ML BTL INJ ONE; -LACTATED RINGERS 1,000 ML IV SCH; +LIDOCAINE 1% INJ 10MG/ML (20 ML MDV) ONE; +LIDOCAINE 1% INJ 10MG/ML (20 ML MDV) SQ ONE; +MIDAZOLAM 2 MG/2 ML VIAL IV ONE; +NITROGLYCERIN SL TABS 0.4 MG TAB SUBLINGUAL PRN; +RX INFO: IV CONTRAST WAS GIVEN 1 EACH MISC MISCELLANE PRN; +VERAPAMIL 2.5 MG/ML 2 ML AMP ONE; +VERAPAMIL SYRINGE (5 MG/10 ML) INTRAARTER ONE; +fentaNYL (PF) 50 MCG/ML 2 ML AMP IV ONE; +fentaNYL (PF) 50 MCG/ML 2 ML AMP ONE
[2020-11-05] MEDS: SODIUM CHLORIDE 0.9% 1,000 ML in EMPTY BAG 1 BAG IV ONE ×2 (08:15→08:17)
[2020-11-05 08:20] VITALS: RESP 16; TEMP 97.4
--- NOTE | 2020-11-05 11:04 | P.CARDCATH ---
Description of Procedure: PROCEDURES PERFORMED: Left heart catheterization, bilateral coronary angiography INDICATION: Abnormal stress test HISTORY: Patient is a pleasant 64-year-old male with history of hypertension, hyperlipidemia who had 2 episodes of chest pain, mainly with rest and had Cardiolite stress test performed with normal EKG portion and good exercise tolerance however abnormal imaging portion. Therefore left heart catheterization was recommended. CONSENT:I have discussed the risks, benefits and alternative therapies for the above-mentioned procedure and for both sedation/analgesia as well as necessary blood product administration, if indicated, as they pertain to this patient. The patient has indicated understanding and acceptance of the risks and procedures discussed. PROCEDURE: After the risks, benefits and alternatives of the above mentioned procedure explained in detail with the patient, informed consent was obtained. Patient was taken to the catheterization lab and prepped and draped in usual fashion. 1% lidocaine was used to anesthetize the right radial artery. A 6- Swiss sheath was placed in the right radial artery using modified Seldinger technique. Left coronary angiography was performed with a 5-Swiss JL 3.5 catheter and right coronary angiography was performed with a 5-Swiss JR5 catheter in various views. A 5-Swiss FR5 catheter was inserted into the left ventricle and pressure measurements were obtained. The right radial sheath was removed and a TR band was placed with hemostasis achieved. The patient tolerated the procedure well. Patient was transported back to the post catheterization holding area in stable condition. Conscious Sedation: Patient was monitored under the direct supervision of vision of myself for conscious sedation using Versed and fentanyl for a total duration of 16 minutes HEMODYNAMICS: Ao: 142/78 LV: 144/2, LVEDP 18 SELECTIVE CORONARY ARTERIOGRAPHY: LEFT MAIN: The left main is a large caliber vessel which bifurcates into the LAD and circumflex. There is no significant stenosis. LEFT ANTERIOR DESCENDING CORONARY ARTERY: LAD is a large caliber vessel which wraps around to the apex. There is minimal 10% stenosis of the mid LAD and otherwise normal LAD. LEFT CIRCUMFLEX CORONARY ARTERY: Left circumflex is a moderate caliber vessel without significant stenosis. RIGHT CORONARY ARTERY: The right coronary artery is a large caliber vessel which gives off a PDA and PLV branch and is the dominant vessel. There is no significant stenosis. FINAL IMPRESSION: 1. Relatively normal coronary arteries as described above with only mild 10% luminal irregularities of the LAD. 2. Normal left sided filling pressures PLAN: 1. Aggressive risk factor modification per most recent ACC/AHA guidelines. 2. Follow-up in the office in 1-2 weeks.
[2020-11-05 12:51] VITALS: BP 123/57; PULSE 67
== END ==
LOC: CATHCVL 07:47
PROVIDERS: ATTEND Internal Medicine
DX: I25.10 Atherosclerotic heart disease of native coronary artery without angina pectoris (principal); I10 Essential (primary) hypertension; E78.5 Hyperlipidemia, unspecified; K21.9 Gastro-esophageal reflux disease without esophagitis; Z86.16 Personal history of COVID-19; Z87.891 Personal history of nicotine dependence; R94.39 Abnormal result of other cardiovascular function study; Z79.82 Long term (current) use of aspirin; Z79.899 Other long term (current) drug therapy
CPT/HCPCS: 93458; C1894; J2250; J2001; J3010; J1644; Q9967

== ENCOUNTER 2021-03-06 17:27 | Emergency (ER) | payer BC ==
[2021-03-06 17:59] VITALS: TEMP 98.2
[2021-03-06 19:47] VITALS: RESP 16
--- NOTE | 2021-03-06 20:24 | ED ---
Chest Pain HPI - General Chief Complaint: Chest Pain Stated Complaint: Recheck/Chest Pain Source: patient Mode of arrival: ambulatory Limitations: no limitations - History of Present Illness Initial Comments: 65-year-old male presents emergency Department with reported elevated d-dimer. He states that he had some chest pain between hours of 2 and 5 AM. Describes it as a sharp shooting pain which radiated straight through to his back. He went into Dr. doctor's office. He performed an EKG and completed laboratory studies. Patient was told that he had an elevated d-dimer need to come to the hospital for computed tomography scan. Patient states the pain is gone at this time. Denies history of DVT or PE. No history of cardiac disease. Had a catheterization [address] Mcbride and had no coronary disease. He denies shortness of breath, fevers, chills or cough. He did receive his Covid booster vaccine on Thursday and states that he has had generalized aches and nausea. No other alleviating, precipitating or modifying factors - Related Data Home Medications Medication Instructions Recorded Confirmed Omeprazole [PriLOSEC] 20 mg PO DAILY 07/08/17 11/05/20 Tamsulosin HCl [Flomax] 0.4 mg PO DAILY 07/08/17 11/05/20 Citalopram Hydrobromide [CeleXA] 20 mg PO DAILY 02/16/20 11/05/20 Atorvastatin [Lipitor] 20 mg PO DAILY 11/02/20 11/05/20 Lisinopril [Zestril] 10 mg PO DAILY 11/02/20 11/05/20 Sucralfate [Carafate] 1 gm PO BID 11/02/20 11/05/20 Previous Rx's Medication Instructions Recorded Cholecalciferol [Vitamin D3 (25 2,000 unit PO DAILY tab 02/25/20 Mcg = 1000 Iu)] Allergies Allergy/AdvReac Type Severity Reaction Status Date / Time No Known Allergies Allergy Verified 03/06/21 17:56 Review of Systems ROS Statement: Those systems with pertinent positive or pertinent negative responses have been documented in the HPI. ROS Other: All systems not noted in ROS Statement are negative. EKG Findings - EKG Comments: EKG Findings:: EKG demonstrates a sinus rhythm with a ventricular rate of 77. TN interval 156. QRS 86. QTC of 418. There is some baseline artifact. No acute ST segment elevations. Q wave in lead 3. Past Medical History Past Medical History: GERD/Reflux, Hyperlipidemia, Hypertension, Osteoarthritis (OA), Prostate Disorder, Sleep Apnea/CPAP/BIPAP Additional Past Medical History / Comment(s): covid, low testosterone. History of Any Multi-Drug Resistant Organisms: None Reported Past Surgical History: Orthopedic Surgery Additional Past Surgical History / Comment(s): ORIF lt foot,LASIK reagan eyes, right elbow surgery due to bone chip, colonoscopy Past Anesthesia/Blood Transfusion Reactions: No Reported Reaction Additional Past Anesthesia/Blood Transfusion Reaction / Comment(s): Pt has clausterphobia Past Psychological History: No Psychological Hx Reported Smoking Status: Never smoker Past Alcohol Use History: Occasional Past Drug Use History: None Reported - Past Family History Mother Family Medical History: Hypertension Additional Family Medical History / Comment(s): Mother is 88 yrs old. Father Family Medical History: Dementia, Hypertension, Seizure Disorder Brother(s) Family Medical History: Hyperlipidemia Son(s) Family Medical History: No Reported History Daughter(s) Family Medical History: No Reported History General Exam Limitations: no limitations Course Vital Signs 03/06/21 03/06/21 17:56 19:44 Temperature 98.2 F Pulse Rate 78 81 Respiratory 20 16 Rate Blood Pressure 134/83 133/81 O2 Sat by Pulse 97 97 Oximetry Chest Pain MDM - MDM Upon arrival patient is placed into room 21. Laboratories is reviewed. D-dimer is 34. Troponin is negative. 12-lead EKG is performed. IV established patient went over for a CT of his chest which demonstrates no PE. There is some thickening of the pleura at the apex. He is tested for Covid which is negative. Spoke with Dr. Velasquez will follow up with the patient in office. Patient wants to go home at this time. He is instructed to return for any new or worsening symptoms. Patient was discharged home in stable condition Disposition Clinical Impression: Chest pain, Elevated d-dimer Disposition: HOME SELF-CARE Condition: Stable Instructions (If sedation given, give patient instructions): Chest Pain (ED) Additional Instructions: Please follow-up with Dr. Velasquez in office for further evaluation of your symptoms. Return to the emergency room for any new or worsening symptoms Is patient prescribed a controlled substance at d/c from ED?: No Referrals: Jer eVlasquez MD [Primary Care Provider] - 1-2 days Time of Disposition: 21:13
--- NOTE | 2021-03-06 20:28 | CT ---
EXAMINATION TYPE: CT chest angio for PE DATE OF EXAM: 03/06/2021 COMPARISON: 02/20/2020 HISTORY: SOB, chest pain CT DLP: 575.5 mGycm Automated exposure control for dose reduction was used. CONTRAST: Performed with IV Contrast, patient injected with 100 mL of Isovue 370. There are 3-D post processed images. The lungs are clear of consolidation. There is no evidence of a pulmonary mass. Upper abdominal soft tissues are intact. Heart size is normal. There is no pericardial effusion. There are no hilar masses . There is no mediastinal adenopathy. Thoracic aorta is intact. 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 There is no dissection. There is normal contrast opacification of the pulmonary arteries. There are no filling defects. Thoracic vertebra have normal alignment. Sternum is intact. The ribs appear intact. IMPRESSION: No evidence of pulmonary embolism. Minimal pleural thickening noted at the lung apices.
[2021-03-06 21:51] VITALS: BP 124/82; PULSE 77
== END 2021-03-06 21:49 | disposition home or self-care (01) ==
LOC: EC 17:27
DX: R07.9 Chest pain, unspecified (principal); R79.1 Abnormal coagulation profile; I10 Essential (primary) hypertension; E78.5 Hyperlipidemia, unspecified; K21.9 Gastro-esophageal reflux disease without esophagitis; M19.90 Unspecified osteoarthritis, unspecified site; Z79.899 Other long term (current) drug therapy; Z20.822 Contact with and (suspected) exposure to COVID-19
CPT/HCPCS: 87635; 71275; 99285; Q9967

== ENCOUNTER → 2024-02-26 | Outpatient (CLI) | payer MEDICARE ==
--- NOTE | 2024-02-26 14:54 | US ---
EXAMINATION TYPE: US carotid duplex BILAT DATE OF EXAM: 02/26/2024 COMPARISON: NONE CLINICAL INDICATION: Male, 68 years old with history of I65.[address] I25.10 ATHSCL HEART D ISEAS; Additional History: .... TECHNIQUE: Grayscale, color Doppler and spectral Doppler evaluation of the bilateral carotid systems and vertebral arteries. Indirect Doppler criteria was utilized. FINDINGS: EXAM MEASUREMENTS: RIGHT: Peak Systolic Velocity (PSV) cm/sec ----- Right CCA: 77.1 ----- Right ICA: 77.6 ----- Right ECA: 68.9 ICA/CCA ratio: 1.0 RIGHT: End Diastole cm/sec ----- Right CCA: 17.0 ----- Right ICA: 24.8 ----- Right ECA: 9.4 LEFT: Peak Systolic Velocity (PSV) cm/sec ----- Left CCA: 81.6 ----- Left ICA: 86.4 ----- Left ECA: 47.4 ICA/CCA ratio: 1.1 LEFT: End Diastole cm/sec ----- Left CCA: 13.1 ----- Left ICA: 27.3 ----- Left ECA: 6.5 VERTEBRALS (direction of flow): Right Vertebral: Antegrade Left Vertebral: Antegrade Rhythm: Normal Vault Installer notes: No significant stenosis visualized or elevated velocities seen, mild plaque seen w ithin rt bulb Color Doppler imaging shows patency with blood flow throughout the carotid artery. Spectral waveforms are within normal limits. IMPRESSION: No hemodynamically significant internal carotid artery stenosis on either side. Criteria for Assigning % of Stenosis / Diameter reduction (Estimation based on the indirect measurements of the internal carotid artery velocities (ICA PSV). 1. Normal (no stenosis)=ICA PSV < 125 cm/s: ratio < 2.0: ICA EDV<40 cm/s. 2. Less than 50% stenosis=ICA PSV < 125 cm/s: ratio < 2.0: ICA EDV<40 cm/s. 3. 50 to 69% stenosis=ICA PSV of 125 to 230 cm/s: ration 2.0 ? 4.0: ICA EDV 40-100 cm/s. 4. Greater than 70% stenosis to near occlusion= ICA PSV > 230 cm/s: ratio > 4.0: ICA EDV > 100 cm/s. 5. Near occlusion= ICA PSV velocities may be low or undetectable: variable ratio and ICA EDV. 6. Total occlusion=unable to detect flow. [facility], , 02/26/2024 2:51 PM
--- NOTE | 2024-02-26 15:48 | CA ---
Transthoracic Echo Report Name: Bebeto Coleman Age: 68 Gender: M : 1955 Exam Date: 02/26/2024 13:06 Exam Location: [place] [facility] Ht (in): 73 Wt (lb): 230 Ordering Physician: Jer Velasquez MD Attending/Referring Phys: Nelda Bonilla [facility] [employer] Stave Assembler Rianna Gomez RDCS Procedure CPT: Indications: I65.[address] I25.10 ATHSCL HEART DISEAS Cardiac Hx: Technical Quality: Fair Contrast 1: Total Dose (mL): Contrast 2: Total Dose (mL): MEASUREMENTS (Male / Female) Normal Values 2D ECHO LV Diastolic Diameter PLAX 5.9 cm 4.2 - 5.9 / 3.9 - 5.3 cm LV Systolic Diameter PLAX 4.6 cm IVS Diastolic Thickness 1.4 cm 0.6 - 1.0 / 0.6 - 0.9 cm LVPW Diastolic Thickness 1.3 cm 0.6 - 1.0 / 0.6 - 0.9 cm LV Relative Wall Thickness 0.5 RV Internal Dim ED PLAX 2.6 cm LA Systolic Diameter LX 4.4 cm 3.0 - 4.0 / 2.7 - 3.8 cm LV Diastolic Volume MOD BP 87.7 cm??? 67 - 155 / 56 - 104 cm??? LV Systolic Volume MOD BP 47.3 cm??? 22 - 58 / 19 - 49 cm??? LV Ejection Fraction MOD BP 46.1 % >= 55 % LV Cardiac Index MOD BP 1380.4 cm???/min???m??? LV Diastolic Volume MOD 4C 101.0 cm??? LV Systolic Volume MOD 4C 40.4 cm??? LV Ejection Fraction MOD 4C 60.0 % LV Cardiac Index MOD 4C 2070.2 cm???/min???m??? LV Diastolic Length 4C 7.5 cm LV Systolic Length 4C 6.2 cm LV Diastolic Volume MOD 2C 74.1 cm??? LV Systolic Volume MOD 2C 53.3 cm??? LV Ejection Fraction MOD 2C 28.0 % LV Cardiac Index MOD 2C 708.1 cm???/min???m??? LV Diastolic Length 2C 7.8 cm LV Systolic Length 2C 7.2 cm LA Volume 74.6 cm??? 18 - 58 / 22 - 52 cm??? LA Volume Index 31.9 cm???/m??? 16 - 28 cm???/m??? M-MODE Aortic Root Diameter MM 4.1 cm LA Systolic Diameter MM 3.5 cm LA Ao Ratio MM 0.9 AV Cusp Separation MM 2.4 cm DOPPLER AV Peak Velocity 160.8 cm/s AV Peak Gradient 10.3 mmHg AV Mean Velocity 103.9 cm/s AV Mean Gradient 4.9 mmHg AV Velocity Time Integral 31.6 cm AI Peak Velocity 439.1 cm/s AI Peak Gradient 77.1 mmHg AI Pressure Half Time 673.3 ms LVOT Peak Velocity 94.5 cm/s LVOT Peak Gradient 3.6 mmHg LVOT Velocity Time Integral 23.2 cm MV Area PHT 3.0 cm??? Mitral E Point Velocity 63.5 cm/s Mitral A Point Velocity 66.4 cm/s Mitral E to A Ratio 1.0 MV Deceleration Time 249.2 ms TR Peak Velocity 205.6 cm/s TR Peak Gradient 16.9 mmHg FINDINGS Left Ventricle Left ventricular ejection fraction is estimated at 50-55 %. Left ventricular systolic function borderline normal.Mildly increased left ventricular wall thickness. Mild left ventricular dilatation. Right Ventricle Normal right ventricular size and function. Right ventricular systolic pressure within normal limits. Right Atrium Mild right atrial dilatation. Left Atrium Mildly increased left atrial diameter. Mildly increased left atrial volume. Mildly increased left atrial area. Mitral Valve Structurally normal mitral valve. Mild mitral regurgitation. No mitral stenosis. Aortic Valve Aortic valve not well visualized. Thickened aortic valve without stenosis. Moderate aortic regurgitation. Tricuspid Valve Structurally normal tricuspid valve. Mild tricuspid regurgitation. No tricuspid stenosis. Pulmonic Valve Pulmonic valve not well visualized. Trace pulmonic regurgitation. No pulmonic stenosis. Pericardium No pericardial or pleural effusion. Aorta Mild aortic dilatation at the level of the sinuses of valsalva (root) 4.0cm. CONCLUSIONS Technically difficult study. Left ventricular size borderline normal and mildly dilated Mild mitral and tricuspid regurgitation Moderate aortic regurgitation with mild dilatation of the ascending aorta Previewed by: Dr. Germania Zamorano MD (Electronically Signed) Final Date: 26 February 2024 15:48
== END | disposition home or self-care (01) ==
LOC: RADECHMAIN 12:45
PROVIDERS: ATTEND Internal Medicine
DX: I65.23 Occlusion and stenosis of bilateral carotid arteries (principal); I25.10 Atherosclerotic heart disease of native coronary artery without angina pectoris; I08.2 Rheumatic disorders of both aortic and tricuspid valves; I37.1 Nonrheumatic pulmonary valve insufficiency
CPT/HCPCS: 93306; 93880

== ENCOUNTER 2024-09-23 19:06 | Inpatient (IN) | payer MEDICARE ==
[2024-09-23 20:10] LABS: Basophils # (A) 0.04 10*3/uL (0.00-0.10); Basophils % (A) 0.6 %; Eosinophils # (A) 0.08 10*3/uL (0.04-0.35); Eosinophils % (A) 1.2 %; HCT 36.4 % (39.6-50.0); HGB 12.6 g/dL (13.0-17.0); Lymphocytes # (A) 1.21 10*3/uL (0.90-5.00); Lymphocytes % (A) 18.1 %; MCH 31.0 pg (27.0-32.0); MCHC 34.6 g/dL (32.0-37.0); MCV 89.4 fL (80.0-97.0); Monocytes # (A) 0.74 10*3/uL (0.20-1.00); Monocytes % (A) 11.1 %; Neutrophils # (A) 4.58 10*3/uL (1.80-7.70); Neutrophils % (A) 68.7 %; Platelet Count 147 10*3/uL (140-440); RBC 4.07 10*6/uL (4.40-5.60); RDW 13.3 % (11.5-14.5); WBC 6.67 10*3/uL (4.50-10.00)
--- NOTE | 2024-09-23 20:17 | ED ---
General Adult HPI - General Chief complaint: Shortness of Breath Stated complaint: LOUANN, abn labs Time Seen by Provider: 09/23/24 19:37 Source: patient Mode of arrival: ambulatory - History of Present Illness Initial comments: Patient is a 68-year-old gentleman with a past medical history of atrial fibrillation on metoprolol and Xarelto x 2 to 3 weeks presenting today for shortness of breath. Patient states that he was diagnosed with atrial fibrillation and started on metoprolol and Xarelto about 2 to 3 weeks ago. He states the shortness of breath began at that point however has worsened over the last 3 to 4 days. Worsens with lying flat and exertion. He endorses a cough nonproductive of sputum or hemoptysis. Denies chest pain. Denies lower extremity swelling, fevers, chills, abdominal pain, nausea, vomiting, diarrhea, melena hematochezia, lightheadedness or dizziness. Denies history of prior PE/DVT. Denies recent travel surgery hospitalizations. Is a non-smoker. No history of COPD. Patient's primary care provider checked a D-dimer and it was greater than 34 so he was directed to the ER. - Related Data Home Medications Medication Instructions Recorded Confirmed Tamsulosin HCl [Flomax] 0.4 mg PO BID 07/08/17 09/24/24 lisinopriL [Zestril] 10 mg PO DAILY 11/02/20 09/24/24 Atorvastatin [Lipitor] 40 mg PO DAILY 09/24/24 09/24/24 Rivaroxaban [Xarelto] 20 mg PO W/SUPPER 09/24/24 09/24/24 dilTIAZem HCL 30 mg PO DIRECTED 09/24/24 09/24/24 Allergies Allergy/AdvReac Type Severity Reaction Status Date / Time No Known Allergies Allergy Verified 09/24/24 09:11 Review of Systems ROS Statement: Those systems with pertinent positive or pertinent negative responses have been documented in the HPI. ROS Other: All systems not noted in ROS Statement are negative. Past Medical History Past Medical History: Atrial Fibrillation, GERD/Reflux, Hyperlipidemia, Hypertension, Osteoarthritis (OA), Prostate Disorder, Sleep Apnea/CPAP/BIPAP Additional Past Medical History / Comment(s): covid, low testosterone. History of Any Multi-Drug Resistant Organisms: None Reported Past Surgical History: Orthopedic Surgery Additional Past Surgical History / Comment(s): ORIF lt foot,LASIK reagan eyes, right elbow surgery due to bone chip, colonoscopy Past Anesthesia/Blood Transfusion Reactions: No Reported Reaction Additional Past Anesthesia/Blood Transfusion Reaction / Comment(s): Pt has clausterphobia Past Psychological History: No Psychological Hx Reported Smoking Status: Never smoker Past Alcohol Use History: Occasional Past Drug Use History: None Reported - Past Family History Mother Family Medical History: Hypertension Additional Family Medical History / Comment(s): Mother is 88 yrs old. Father Family Medical History: Dementia, Hypertension, Seizure Disorder Brother(s) Family Medical History: Hyperlipidemia Son(s) Family Medical History: No Reported History Daughter(s) Family Medical History: No Reported History General Exam - General Exam Comments Initial Comments: PE: CONSTITUTIONAL: No apparent distress, well appearing SKIN: Warm, dry, no jaundice, hives or petechiae EYES: Pupils are equally round, extraocular movements intact without nystagmus, clear conjunctiva, non-icteric sclera HENT: Normocephalic, atraumatic, moist mucus membranes, oropharynx clear without exudates NECK: , Full range of motion, normal appearance PULMONARY: Decreased breath sounds in the bilateral lung bases without wheezes, rhonchi, or rales, normal excursion, no accessory muscle use and no stridor CARDIOVASCULAR: Regular rate, rhythm, normal S1 and S2. No appreciated murmurs, rubs or gallops. Strong radial pulses with intact distal perfusion. Scant 1+ bilateral lower extremity pitting edema up to ankles GASTROINTESTINAL: Soft, active bowel sounds throughout, non-tender, non- distended, no palpable masses, no rebound or guarding. No hepatosplenomegaly GENITOURINARY: MUSCULOSKELETAL: Extremities have no gross deformity, redness, or swelling. No calf swelling NEUROLOGIC:_a/o x 3, GCS 15, normal mentation and speech. Moves all extremities x 4 without motor or sensory deficit PSYCHIATRIC:_normal mood and affect, thought process is clear and linear Course Vital Signs 09/23/24 09/23/24 09/23/24 19:24 20:00 21:00 Temperature 97.9 F Pulse Rate 90 80 82 Respiratory 18 18 18 Rate Blood Pressure 150/88 139/86 141/84 O2 Sat by Pulse 96 97 97 Oximetry 09/23/24 09/24/24 09/24/24 22:00 00:30 01:00 Temperature Pulse Rate 77 91 84 Respiratory 16 16 18 Rate Blood Pressure 146/84 143/91 160/109 O2 Sat by Pulse 95 97 97 Oximetry 09/24/24 09/24/24 09/24/24 02:00 02:41 03:30 Temperature 99.5 F Pulse Rate 94 144 H 122 H Respiratory 18 20 18 Rate Blood Pressure 143/88 109/96 O2 Sat by Pulse 96 94 L Oximetry 09/24/24 09/24/24 09/24/24 04:00 05:00 06:00 Temperature 98.5 F Pulse Rate 126 H 118 H 120 H Respiratory 18 18 18 Rate Blood Pressure 121/99 135/89 124/87 O2 Sat by Pulse 94 L 95 95 Oximetry 09/24/24 09/24/24 09/24/24 07:32 09:25 09:55 Temperature 98 F Pulse Rate 118 H 128 H 120 H Respiratory 20 18 20 Rate Blood Pressure 105/63 119/92 116/81 O2 Sat by Pulse 95 95 98 Oximetry 09/24/24 09/24/24 09/24/24 10:56 11:44 13:35 Temperature Pulse Rate 110 H 118 H 107 H Respiratory 20 20 18 Rate Blood Pressure 120/68 136/86 96/79 O2 Sat by Pulse 98 98 97 Oximetry 09/24/24 14:21 Temperature Pulse Rate 110 H Respiratory 18 Rate Blood Pressure 100/78 O2 Sat by Pulse 98 Oximetry EKG Findings - EKG Comments: EKG Findings:: Sinus rhythm, rate 89 bpm intervals in acceptable limits, normal axis, no significant ST elevations or depressions Medical Decision Making - Medical Decision Making Was pt. sent in by a medical professional or institution (, PA, FURNACE DOOR TENDER, urgent care, hospital, or assisted...) When possible be specific @ -Patient was sent in by his primary care provider, Dr. Velasquez Did you speak to anyone other than the patient for history (EMS, parent, family, police, friend...)? What history was obtained from this source @ -No Did you review nursing and triage notes (agree or disagree)? Why? @ -I reviewed and agree with nursing and triage notes Were old charts reviewed (outside hosp., previous admission, EMS record, old EKG, old radiological studies, urgent care reports/EKG's, assisted records)? Report findings @ -Medical records reviewed-Reviewed chest x-ray from earlier today success , showed mild diffuse pulmonary edema correlate provided fluid overload follow-up recommended, D-dimer performed this morning was greater than 34.10 Differential Diagnosis (chest pain, altered mental status, abdominal pain women, abdominal pain men, vaginal bleeding, weakness, fever, dyspnea, syncope, headache, dizziness, GI bleed, back pain, seizure, CVA, palpatations, mental health, musculoskeletal)? Differential Dyspnea: Coronary syndrome, arrhythmia, tamponade, asthma, COPD, pulmonary embolism, pneumonia, pneumothorax, pulmonary effusion, anaphylaxis, diabetic ketoacidosis, flailed chest, pulmonary contusion, diaphragmatic rupture, anemia, neuromuscular, this is not meant to be an all-inclusive list. EKG interpreted by me (3pts min.). @ -As above X-rays interpreted by me (1pt min.). @ -None done CT interpreted by me (1pt min.). @ -Personally reviewed CT angio chest I see no evidence of pulmonary embolism, small bilateral pleural effusions noted I agree with radiologist interpretation U/S interpreted by me (1pt. min.). @ -None done What testing was considered but not performed or refused? (CT, X-rays, U/S, labs)? Why? @ -None What meds were considered but not given or refused? Why? @ -None Did you discuss the management of the patient with other professionals (professionals i.e. , PA, FURNACE DOOR TENDER, lab, RT, psych nurse, social media developer, lawyer probate, te acher, duty officer, mattress spring encaser)? Give summary @ -No Was smoking cessation discussed for >3mins.? @ -No Was critical care preformed (if so, how long)? Yes 35 minutes Were there social determinants of health that impacted care today? How? (Homelessness, low income, unemployed, alcoholism, drug addiction, transportation, low edu. Level, literacy, decrease access to med. care, prison, rehab)? @ -No Was there de-escalation of care discussed even if they declined (Discuss DNR or withdrawal of care, Hospice)? @ -No What co-morbidities impacted this encounter? (DM, HTN, Smoking, COPD, CAD, Cancer, CVA, ARF, Chemo, Hep., AIDS, mental health diagnosis, sleep apnea, morbid obesity)? @Atrial fibrillation on Xarelto Was patient admitted / discharged? Hospital course, mention meds given and route, prescriptions, significant lab abnormalities, going to OR and other pertinent info. @Admission-this is previously healthy 68-year-old gentleman past medical history recent diagnosis of atrial fibrillation on metoprolol and Xarelto presenting today at the direction of his primary care provider after being found to have pulmonary edema on chest x-ray and an elevated D-dimer on outpatient labs after 3 days of worsening shortness of breath. Vital signs are stable on arrival, patient is not hypoxic. Respirations are unlabored. Decreased breath sounds in the bases. 1+ bilateral pitting edema up to the ankles, R slightly worse than left. Discussed with patient plan for CT angio PE study, labs, patient agreeable w/ plan of care. Blood work was significant for Hemoglobin of 12.6, troponin 0.021, BNP 2880. CT PE study showed no pulmonary embolism. Did show bilateral pleural effusions. Patient signs and symptoms as well as workup were concerning for new onset CHF. Plan for administration 80 mg IV Lasix. Updated patient to findings and plan for admission. He is agreeable plan of care. Case was discussed with NIDIA Crowley who kindly excepted patient for admission. Reviewed patient's medication list with him, of note patient was told to stop his metoprolol today and start 30 mg diltiazem 3 times daily tomorrow. Additionally he is on 10 mg lisinopril, 40 mg atorvastatin, Flomax twice daily, Xarelto daily. Undiagnosed new problem with uncertain prognosis? @ -No Drug Therapy requiring intensive monitoring for toxicity (Heparin, Nitro, Insulin, Cardizem)? @ -No Were any procedures done? @ -No Diagnosis/symptom? New onset congestive heart failure Acute, or Chronic, or Acute on Chronic? Acute Uncomplicated (without systemic symptoms) or Complicated (systemic symptoms)? Complicated Side effects of treatment? @ -No Exacerbation, Progression, or Severe Exacerbation? @ -No Poses a threat to life or bodily function? How? (Chest pain, [place], [place], pneumonia, PE, COPD, DKA, ARF, appy, cholecystitis, CVA, Diverticulitis, Homicidal, Suicidal, threat to staff... and all critical care pts) @Yes - Lab Data Result diagrams: 09/23/24 20:01 09/23/24 20:01 Lab Results 09/23/24 09/23/24 09/23/24 Range/Units 20:01 20:01 20:01 WBC 6.67 (4.50-10.00) 10*3/uL RBC 4.07 L (4.40-5.60) 10*6/uL Hgb 12.6 L (13.0-17.0) g/dL Hct 36.4 L (39.6-50.0) % MCV 89.4 (80.0-97.0) fL MCH 31.0 (27.0-32.0) pg MCHC 34.6 (32.0-37.0) g/dL Plt Count 147 (140-440) 10*3/uL MPV 11.5 (9.5-12.2) fL Immature Gran % (Auto) 0.3 % Neutrophils % 68.7 % Lymphocytes % 18.1 % Monocytes % 11.1 % Eosinophils % 1.2 % Basophils % 0.6 % Immature Gran # 0.02 (0.00-0.04) 10*3/uL Neutrophils # 4.58 (1.80-7.70) 10*3/uL Lymphocytes # 1.21 (0.90-5.00) 10*3/uL Monocytes # 0.74 (0.20-1.00) 10*3/uL Eosinophils # 0.08 (0.04-0.35) 10*3/uL Basophils # 0.04 (0.00-0.10) 10*3/uL PT 10.7 (10.0-12.5) sec INR 1.0 (<1.2) APTT 22.7 (22.0-30.0) sec Sodium 136 L (137-145) mmol/L Potassium 4.4 (3.5-5.1) mmol/L Chloride 107 (98-107) mmol/L Carbon Dioxide 21 L (22-30) mmol/L Anion Gap 8 mmol/L BUN 18 (9-20) mg/dL Creatinine 0.69 (0.66-1.25) mg/dL Est GFR (CKD-EPI)AfAm >90 (>60 ml/min/1.73 sqM) Est GFR (CKD-EPI)NonAf >90 (>60 ml/min/1.73 sqM) Glucose 108 H (74-99) mg/dL Calcium 8.8 (8.4-10.2) mg/dL Total Bilirubin 1.1 (0.2-1.3) mg/dL AST 33 (17-59) U/L ALT 44 (4-49) U/L Alkaline Phosphatase 69 (38-126) U/L Troponin I (0.000-0.034) ng/mL NT-Pro-B Natriuret Pep 2880 pg/mL Total Protein 6.2 L (6.3-8.2) g/dL Albumin 3.8 (3.5-5.0) g/dL Influenza Type A (PCR) (Not Detectd) Influenza Type B (PCR) (Not Detectd) RSV (PCR) (Not Detectd) SARS-CoV-2 (PCR) (Not Detectd) 09/23/24 09/23/24 Range/Units 20:01 20:30 WBC (4.50-10.00) 10*3/uL RBC (4.40-5.60) 10*6/uL Hgb (13.0-17.0) g/dL Hct (39.6-50.0) % MCV (80.0-97.0) fL MCH (27.0-32.0) pg MCHC (32.0-37.0) g/dL Plt Count (140-440) 10*3/uL MPV (9.5-12.2) fL Immature Gran % (Auto) % Neutrophils % % Lymphocytes % % Monocytes % % Eosinophils % % Basophils % % Immature Gran # (0.00-0.04) 10*3/uL Neutrophils # (1.80-7.70) 10*3/uL Lymphocytes # (0.90-5.00) 10*3/uL Monocytes # (0.20-1.00) 10*3/uL Eosinophils # (0.04-0.35) 10*3/uL Basophils # (0.00-0.10) 10*3/uL PT (10.0-12.5) sec INR (<1.2) APTT (22.0-30.0) sec Sodium (137-145) mmol/L Potassium (3.5-5.1) mmol/L Chloride (98-107) mmol/L Carbon Dioxide (22-30) mmol/L Anion Gap mmol/L BUN (9-20) mg/dL Creatinine (0.66-1.25) mg/dL Est GFR (CKD-EPI)AfAm (>60 ml/min/1.73 sqM) Est GFR (CKD-EPI)NonAf (>60 ml/min/1.73 sqM) Glucose (74-99) mg/dL Calcium (8.4-10.2) mg/dL Total Bilirubin (0.2-1.3) mg/dL AST (17-59) U/L ALT (4-49) U/L Alkaline Phosphatase (38-126) U/L Troponin I 0.021 (0.000-0.034) ng/mL NT-Pro-B Natriuret Pep pg/mL Total Protein (6.3-8.2) g/dL Albumin (3.5-5.0) g/dL Influenza Type A (PCR) Not Detected (Not Detectd) Influenza Type B (PCR) Not Detected (Not Detectd) RSV (PCR) Not Detected (Not Detectd) SARS-CoV-2 (PCR) Not Detected (Not Detectd) Disposition Clinical Impression: New onset of congestive heart failure Disposition: ADMITTED IP TO THIS [facility] Condition: Stable
[2024-09-23 20:18] LABS: INR 1.0 (<1.2); Partial Thromboplastin Time 22.7 sec (22.0-30.0); Prothrombin Time 10.7 sec (10.0-12.5)
[2024-09-23 20:21] LABS: African American GFR (CKD) >90 (>60 ml/min/1.73 sqM); Alkaline Phosphatase 69 U/L (38-126); Anion Gap 8 mmol/L; Blood Urea Nitrogen 18 mg/dL (9-20); Calcium 8.8 mg/dL (8.4-10.2); Carbon Dioxide 21 mmol/L (22-30); Chloride 107 mmol/L (98-107); Glucose 108 mg/dL (74-99); Non-African American GFR(CKD) >90 (>60 ml/min/1.73 sqM); Sodium 136 mmol/L (137-145)
[2024-09-23 20:30] LABS: NT-Pro-B-Type Natriuretic Pept 2880 pg/mL
[2024-09-23 20:53] LABS: ALT 44 U/L (4-49); AST 33 U/L (17-59); Albumin 3.8 g/dL (3.5-5.0); Potassium 4.4 mmol/L (3.5-5.1); Total Protein 6.2 g/dL (6.3-8.2)
[2024-09-23 21:21] LABS: RSV Not Detected (Not Detectd)
--- NOTE | 2024-09-23 21:48 | CT ---
EXAMINATION TYPE: CT chest angio for PE DATE OF EXAM: 09/23/2024 9:32 PM COMPARISON: Chest radiograph 09/23/2024. CLINICAL INDICATION: Male, 68 years old with history of Shortness of breath; Pt presents to ER with c omplaints of shortness of breath x3 days. was told that he had an elevated D-dimer outpatient office and to be evaluated at ER. TECHNIQUE/CONTRAST: CTA scan of the thorax is performed with IV Contrast, patient injected with 100 ml mL of Isovue 370, MIP images are created and reviewed these are created on a separate workstation.. FINDINGS: Pulmonary Artery: There is no evidence for a filling defect within the pulmonary vasculature to sugge st acute pulmonary embolism. The pulmonary artery is of normal size. Lungs/Pleura: Small bilateral pleural effusions and diffuse interlobular septal thickening throughout the bilateral lungs with scattered patchy groundglass opacities. There is lower lobe compressive ate lectasis. Airway: Large airways are patent. Heart: Cardiomegaly without significant pericardial effusion. Coronary artery calcifications. Vasculature: No evidence of aortic aneurysm. Mediastinum: Mildly prominent mediastinal and bilateral hilar lymph nodes. Largest right lower paratr acheal node measures approximately 12 mm in short axis. Right hilar node measures 13 mm in short acce ss. Musculoskeletal: No acute osseous abnormalities Soft Tissues/lymph nodes: Unremarkable. Lower neck: No significant findings. Upper Abdomen: No significant findings. IMPRESSION: 1. No evidence of acute pulmonary embolism. 2. Cardiomegaly, small bilateral pleural effusions and diffuse interlobular septal thickening with p atchy groundglass opacities. Constellation of findings are compatible with pulmonary edema. Superimpo sed infectious etiology would be difficult to exclude. 3. Mildly prominent mediastinal and hilar lymph nodes, possibly reactive in etiology. [facility], , 09/23/2024 9:46 PM
[2024-09-24] MEDS: FUROSEMIDE 10 MG/ML 10 ML VIAL IV STA (00:42)
--- NOTE | 2024-09-24 01:18 | US ---
EXAM: US Duplex Bilateral Lower Extremities Veins CLINICAL HISTORY: ITS.REASON US Reason: bilat ankle swell, R> L TECHNIQUE: Real-time duplex ultrasound scan of the bilateral lower extremity veins integrating B-mode two-dimensional vascular structure, Doppler spectral analysis, color flow Doppler imaging and compression. COMPARISON: No previous studies. FINDINGS: Right deep veins: Imaging of the lower extremity deep venous systems bilaterally reveals no deep venous thrombosis including the common femoral veins, superficial femoral veins, the popliteal veins, and the posterior tibial and peroneal calf veins. Anterior tibial calf veins were not assessed. Right superficial veins: Unremarkable. No thrombus in the visualized right great saphenous vein. Left deep veins: See above. Left superficial veins: Unremarkable. No thrombus in the visualized left great saphenous vein. Soft tissues: No acute findings. No Capps's cysts. IMPRESSION: No deep venous thrombosis of the lower extremities bilaterally.
[2024-09-24 02:31] LABS: Glucose,Whole Blood 123 mg/dL (70-110)
[2024-09-24] MEDS: DILTIAZEM ORAL 30 MG TAB PO STA (03:21)
[2024-09-24] MEDS: ACETAMINOPHEN TAB 325 MG TAB PO PRN (03:24)
[2024-09-24] MEDS ORDERED: RIVAROXABAN 20 MG TAB PO SCH (09:00)
[2024-09-24] MEDS: TAMSULOSIN 0.4 MG CAP.ER.24H PO SCH (09:24)
[2024-09-24] MEDS: ATORVASTATIN 40 MG TAB PO SCH (09:24)
[2024-09-24] MEDS: DILTIAZEM ORAL 30 MG TAB PO SCH (09:24)
[2024-09-24] MEDS: METOPROLOL TARTRATE 50 MG TAB PO SCH (09:24)
[2024-09-24] MEDS: FUROSEMIDE 10 MG/ML 4 ML VIAL IV SCH (09:25)
--- NOTE | 2024-09-24 12:02 | P.EPPROC ---
- EP Procedure Note Electrophysiology Procedure Note: Summary Patient admitted with atrial fibrillation with RVR, paroxysmal in nature Symptoms of shortness of breath intermittently Continue anticoagulation, rate control of atrial fibrillation I would recommend elective A-fib ablation
--- NOTE | 2024-09-24 12:29 | P.CRDCN ---
History of Present Illness Consult date: 09/24/24 Consult reason: atrial fibrillation History of present illness: The patient is a 68-year-old male who presented to the hospital with worsening shortness of breath. Patient states that this had been progressively worse over the last several weeks. He recently read on the Internet that metoprolol could cause shortness of breath, so he saw his primary care provider and he was switched to Cardizem. His shortness of breath progressively worsened, therefore he presented to the emergency room. Patient has a known history of atrial fibrillation and sees Dr. Mcbride in the office. He states when he was seen in the office last, he was not in atrial fibrillation at that time DIAGNOSTICS: Initial EKG shows sinus rhythm with PACs Recent EKG and telemetry shows atrial fibrillation with RVR CT scan of the chest shows no evidence of PE. Cardiomegaly with small bilateral pleural effusions and intralobular patchy groundglass opacities consistent with pulmonary edema Lab data: WBC 6.6, hemoglobin 12.6, hematocrit 36.4, platelet 147, sodium 136, potassium 4.4, BUN 18, creatinine 0.69, AST 33, ALT 44, troponin 0.02, BNP 2880 REVIEW OF SYSTEMS: No fever or chills. No cough or expectoration. No diaphoresis. Patient denies headache, dizziness, blurred vision, double vision. Patient denies any stomach discomfort. No nausea, vomiting. No hematochezia. No hematemesis. Denies any black stools or blood in his stools. Denies dysuria or hematuria. No muscle weakness or numbness. Positive for shortness of breath with exertion. None at rest PHYSICAL EXAMINATION: This is a 68-year-old male in no apparent distress at the time of my examination. HEENT: Head is atraumatic, normocephalic. Pupils are equal, round. There is no jugular venous distention. No carotid bruit is heard. CHEST EXAMINATION: Irregular rate and rhythm. S1, S2 heard. No murmurs, gallops or rub. ABDOMEN: Soft, nontender. Bowel sounds are heard. No organomegaly noted. EXTREMITIES: 2+ peripheral pulses with no evidence of peripheral edema and no calf tenderness noted. NEUROLOGIC EXAMINATION: Patient is awake, alert and oriented x3. FINAL ASSESSMENT AND PLAN: Atrial fibrillation Shortness of breath, elevated BNP Hypertension History of sleep apnea History of mild coronary artery disease PLAN: Start oral beta-blockers and wean off of Cardizem Awaiting echocardiogram results Rate control strategy with outpatient follow-up to discuss ablation Further recommendations to be based upon clinical course I am dictating on behalf of Dr Morgan Dubose's history/physical and assessment/plan. Past Medical History Past Medical History: Atrial Fibrillation, GERD/Reflux, Hyperlipidemia, Hypertension, Osteoarthritis (OA), Prostate Disorder, Sleep Apnea/CPAP/BIPAP Additional Past Medical History / Comment(s): covid, low testosterone. History of Any Multi-Drug Resistant Organisms: None Reported Past Surgical History: Orthopedic Surgery Additional Past Surgical History / Comment(s): ORIF lt foot,LASIK reagan eyes, right elbow surgery due to bone chip, colonoscopy Past Anesthesia/Blood Transfusion Reactions: No Reported Reaction Additional Past Anesthesia/Blood Transfusion Reaction / Comment(s): Pt has clausterphobia Past Psychological History: No Psychological Hx Reported Smoking Status: Never smoker Past Alcohol Use History: Occasional Past Drug Use History: None Reported - Past Family History Mother Family Medical History: Hypertension Additional Family Medical History / Comment(s): Mother is 88 yrs old. Father Family Medical History: Dementia, Hypertension, Seizure Disorder Brother(s) Family Medical History: Hyperlipidemia Son(s) Family Medical History: No Reported History Daughter(s) Family Medical History: No Reported History Medications and Allergies Home Medications Medication Instructions Recorded Confirmed Type Tamsulosin HCl [Flomax] 0.4 mg PO BID 07/08/17 09/24/24 History lisinopriL [Zestril] 10 mg PO DAILY 11/02/20 09/24/24 History Atorvastatin [Lipitor] 40 mg PO DAILY 09/24/24 09/24/24 History Rivaroxaban [Xarelto] 20 mg PO W/SUPPER 09/24/24 09/24/24 History dilTIAZem HCL 30 mg PO DIRECTED 09/24/24 09/24/24 History Allergies Allergy/AdvReac Type Severity Reaction Status Date / Time No Known Allergies Allergy Verified 09/24/24 09:11 Physical Exam Vitals: Vital Signs Temp Pulse Resp BP Pulse Ox 09/24/24 07:32 98 F 118 H 20 105/63 95 09/24/24 06:00 98.5 F 120 H 18 124/87 95 09/24/24 05:00 118 H 18 135/89 95 09/24/24 04:00 126 H 18 121/99 94 L 09/24/24 03:30 122 H 18 109/96 94 L 09/24/24 02:41 99.5 F 144 H 20 09/24/24 02:00 94 18 143/88 96 09/24/24 01:00 84 18 160/109 97 09/24/24 00:30 91 16 143/91 97 09/23/24 22:00 77 16 146/84 95 09/23/24 21:00 82 18 141/84 97 09/23/24 20:00 80 18 139/86 97 09/23/24 19:24 97.9 F 90 18 150/88 96 Intake and Output 09/23/24 09/24/24 09/24/24 22:59 06:59 14:59 Output Total 2525 800 Balance -2525 -800 Output: Urine 2525 800 Uretheral (Orozco) 800 Other: # Bowel Movements 0 Weight 104.326 kg Results 09/23/24 20:01 09/23/24 20:01 Cardiac Enzymes 09/23/24 09/23/24 Range/Units 20:01 20:01 AST 33 (17-59) U/L Troponin I 0.021 (0.000-0.034) ng/mL Coagulation 09/23/24 Range/Units 20:01 PT 10.7 (10.0-12.5) sec APTT 22.7 (22.0-30.0) sec CBC 09/23/24 Range/Units 20:01 WBC 6.67 (4.50-10.00) 10*3/uL RBC 4.07 L (4.40-5.60) 10*6/uL Hgb 12.6 L (13.0-17.0) g/dL Hct 36.4 L (39.6-50.0) % Plt Count 147 (140-440) 10*3/uL Comprehensive Metabolic Panel 09/23/24 Range/Units 20:01 Sodium 136 L (137-145) mmol/L Potassium 4.4 (3.5-5.1) mmol/L Chloride 107 (98-107) mmol/L Carbon Dioxide 21 L (22-30) mmol/L BUN 18 (9-20) mg/dL Creatinine 0.69 (0.66-1.25) mg/dL Glucose 108 H (74-99) mg/dL Calcium 8.8 (8.4-10.2) mg/dL AST 33 (17-59) U/L ALT 44 (4-49) U/L Alkaline Phosphatase 69 (38-126) U/L Total Protein 6.2 L (6.3-8.2) g/dL Albumin 3.8 (3.5-5.0) g/dL Current Medications Generic Name Dose Route Start Last Admin Trade Name Freq PRN Reason Stop Dose Admin Acetaminophen 650 mg 09/24/24 02:42 09/24/24 03:24 Acetaminophen Tab 325 Mg Tab PO 650 mg Q6HR PRN Administration Fever and/ or Pain Atorvastatin Calcium 40 mg 09/24/24 09:00 Atorvastatin 40 Mg Tab PO DAILY [facility] Diltiazem HCl 30 mg 09/24/24 09:00 Diltiazem Oral 30 Mg Tab PO TID [facility] Furosemide 40 mg 09/24/24 09:00 Furosemide 10 Mg/Ml 4 Ml Vial IV Q12H [facility] Lisinopril 10 mg 09/24/24 09:00 Lisinopril 10 Mg Tab PO DAILY [facility] Rivaroxaban 20 mg 09/24/24 09:00 Rivaroxaban 20 Mg Tab PO DAILY [facility] Protocol Tamsulosin HCl 0.4 mg 09/24/24 09:00 Tamsulosin 0.4 Mg Cap.Er.24h PO BID [facility] Intake and Output 09/23/24 09/24/24 09/24/24 22:59 06:59 14:59 Output Total 2525 800 Balance -2525 -800 Output: Urine 2525 800 Uretheral (Orozco) 800 Other: # Bowel Movements 0 Weight 104.326 kg 09/23/24 20:01 09/23/24 20:01
[2024-09-24] MEDS: RIVAROXABAN 20 MG TAB PO SCH (20:45)
--- NOTE | 2024-09-24 23:13 | P.HPIM ---
History of Present Illness Patient is a pleasant 68 years old male with past medical history of multiple medical problems including history of atrial fibrillation Presents because of dyspnea of 3 days duration he contacted his PCP Dr. Anton who referred him to the emergency room Patient denies chest pain he has little cough He denies any other specific complaint He quit smoking about 3 years ago, he drinks 1 drink a day mainly liquor but sometimes wine and beer Denies illicit drugs He is with no fever, slightly tachycardic and tachypneic Labs showing hemoglobin 12 and rest of labs unremarkable including troponin negative less than 0.012. COVID influenza are negative EKG showing A-fib at a rate of 144 ultrasound of the leg showing no DVT in the left leg Chest x-ray showing some basilar infiltrates CTA of the chest showing no pulmonary embolism but there is cardiomegaly with a small bilateral pleural effusion and patchy groundglass opacities suspicious for CHF versus pneumonia Patient currently on IV Lasix and resumed his Xarelto as well as Cardizem and metoprolol Review of Systems Review of systems CONSTITUTIONAL: No fever, no malaise, no fatigue. HEENT: No recent visual problems or hearing problems. Denied any sore throat. CARDIOVASCULAR: No orthopnea, PND, no palpitations, no syncope. PULMONARY: No shortness of breath, no cough, no hemoptysis. GASTROINTESTINAL: No diarrhea, no nausea, no vomiting, no abdominal pain. Normoactive bowel sounds. NEUROLOGICAL: No headaches, no weakness, no numbness. HEMATOLOGICAL: Denies any bleeding or petechiae. GENITOURINARY: Denies any burning micturition, frequency, or urgency. MUSCULOSKELETAL/RHEUMATOLOGICAL: Denies any joint pain, swelling, or any muscle pain. ENDOCRINE: Denies any polyuria or polydipsia. Past Medical History Past Medical History: Atrial Fibrillation, GERD/Reflux, Hyperlipidemia, Hypertension, Osteoarthritis (OA), Prostate Disorder, Sleep Apnea/CPAP/BIPAP Additional Past Medical History / Comment(s): covid, low testosterone. History of Any Multi-Drug Resistant Organisms: None Reported Past Surgical History: Orthopedic Surgery Additional Past Surgical History / Comment(s): ORIF lt foot,LASIK reagan eyes, right elbow surgery due to bone chip, colonoscopy Past Anesthesia/Blood Transfusion Reactions: No Reported Reaction Additional Past Anesthesia/Blood Transfusion Reaction / Comment(s): Pt has clausterphobia Past Psychological History: No Psychological Hx Reported Smoking Status: Never smoker Past Alcohol Use History: Occasional Past Drug Use History: None Reported - Past Family History Mother Family Medical History: Hypertension Additional Family Medical History / Comment(s): Mother is 88 yrs old. Father Family Medical History: Dementia, Hypertension, Seizure Disorder Brother(s) Family Medical History: Hyperlipidemia Son(s) Family Medical History: No Reported History Daughter(s) Family Medical History: No Reported History Medications and Allergies Home Medications Medication Instructions Recorded Confirmed Type Tamsulosin HCl [Flomax] 0.4 mg PO BID 07/08/17 09/24/24 History lisinopriL [Zestril] 10 mg PO DAILY 11/02/20 09/24/24 History Atorvastatin [Lipitor] 40 mg PO DAILY 09/24/24 09/24/24 History Rivaroxaban [Xarelto] 20 mg PO W/SUPPER 09/24/24 09/24/24 History dilTIAZem HCL 30 mg PO DIRECTED 09/24/24 09/24/24 History Allergies Allergy/AdvReac Type Severity Reaction Status Date / Time No Known Allergies Allergy Verified 09/24/24 09:11 Physical Exam Vitals: Vital Signs Temp Pulse Pulse Resp BP BP Pulse Ox 09/24/24 18:45 97.6 F 128 H 18 103/63 95 09/24/24 14:47 97.4 F L 122 H 17 119/81 97 09/24/24 14:21 110 H 18 100/78 98 09/24/24 13:35 107 H 18 96/79 97 09/24/24 11:44 118 H 20 136/86 98 09/24/24 10:56 110 H 20 120/68 98 09/24/24 09:55 120 H 20 116/81 98 09/24/24 09:25 128 H 18 119/92 95 09/24/24 07:32 98 F 118 H 20 105/63 95 09/24/24 06:00 98.5 F 120 H 18 124/87 95 09/24/24 05:00 118 H 18 135/89 95 09/24/24 04:00 126 H 18 121/99 94 L 09/24/24 03:30 122 H 18 109/96 94 L 09/24/24 02:41 99.5 F 144 H 20 09/24/24 02:00 94 18 143/88 96 09/24/24 01:00 84 18 160/109 97 09/24/24 00:30 91 16 143/91 97 Intake and Output 09/24/24 09/24/24 09/25/24 14:59 22:59 06:59 Intake Total 118 Output Total 800 1750 Balance -800 1632 Intake: Oral 118 Output: Urine 800 1750 Other: Voiding Method Indwelling Catheter Indwelling Catheter # Voids 0 Weight 104.326 kg GENERAL: The patient is alert and oriented x3, not in any acute distress. Well developed, well nourished. HEENT: Pupils are round and equally reacting to light. EOMI. No scleral icterus. No conjunctival pallor. Normocephalic, atraumatic. No pharyngeal erythema. No thyromegaly. CARDIOVASCULAR: S1 and S2 present. No murmurs, rubs, or gallops. PULMONARY: Chest is clear to auscultation, no wheezing , no crackles. ABDOMEN: Soft, nontender, nondistended, normoactive bowel sounds. No palpable organomegaly. MUSCULOSKELETAL: No joint swelling or deformity. EXTREMITIES: No cyanosis, clubbing, or pedal edema. NEUROLOGICAL: Gross neurological examination did not reveal any focal deficits. SKIN: No rashes. no petechiae. Results CBC & Chem 7: 09/23/24 20:01 09/23/24 20:01 Labs: Abnormal Lab Results - Last 24 Hours (Table) 09/24/24 Range/Units 02:30 POC Glucose (mg/dL) 123 H (70-110) mg/dL Thrombosis Risk Factor Assmnt - Choose All That Apply Each Risk Factor Represents 2 Points: Age 61-74 years Thrombosis Risk Factor Assessment Total Risk Factor Score: 2 Thrombosis Risk Factor Assessment Level: Low Risk Assessment and Plan Assessment: CHF new onset, mild Acute paroxysmal A-fib and RVR Hypertension Hyperlipidemia GERD Osteoarthritis Obstructive sleep apnea Plan: Resume Xarelto Start IV Lasix 40 mg twice daily Continue with Cardizem 3 mg and metoprolol 50 mg Cardiology team consult CTA of the chest reviewed, no pulmonary embolism Labs and medication were reviewed.. Continue same treatment. Continue with symptomatic treatment. Resume home medication. Monitor labs and vitals. DVT and GI prophylaxis. Further recommendations as per clinical course of the patient DVT prophylaxis: Subcutaneous heparin GI Prophylaxis: Pepcid Prognosis is guarded
--- NOTE | 2024-09-25 08:21 | P.PN ---
Subjective Progress Note Date: 09/25/24 This is Kel Coppola NP, I'm dictating on behalf of Dr. Dubose's H&P and A&P. Patient was interviewed and examined. Patient is a pleasant 68-year-old male who presented to the hospital with wo rsening shortness of breath. Patient was found to be in atrial fibrillation with rapid ventricular response. Currently weaning the patient off Cardizem and increasing metoprolol. Patient's heart rates are still variable, increasing into the 100s with low blood pressures noted. Patient is experiencing some lightheadedness with standing. No chest pain or noticeable heart palpitations. GENERAL: Well-appearing, well-nourished and in no acute distress. NECK: Supple without JVD or thyromegaly. LUNGS: Breath sounds clear to auscultation bilaterally. Respiration equal and unlabored. No wheezes, rales or rhonchi. HEART: Regular rate and rhythm without murmurs, rubs or gallops. S1 and S2 hear d. EXTREMITIES: Normal range of motion, no edema. No clubbing or cyanosis. Peripheral pulses intact and strong. VITALS: Temp 98.2, pulse 112, respirations 20, blood pressure 108/63, O2 saturation 95% on room air TELEMETRY: Atrial fibrillation with rapid ventricular response LABS: No new labs since 09/23/2024 IMPRESSION: 1. Atrial fibrillation, still experiencing variable heart rate 2. Shortness of breath, elevated BNP 3. Hypertension, currently hypotensive 4. History of sleep apnea 5. History of mild coronary artery disease PLAN: Discontinue diltiazem, furosemide, and lisinopril. Continue metoprolol, rivaroxaban. Will work on maximizing rate control. With low blood pressures we will discontinue offending agents, and reintroduce as needed. Further recommendations based on patient's clinical course. Objective - Vital Signs Vital signs: Vital Signs Temp 98.2 F 09/25/24 00:26 Pulse 112 H 09/25/24 00:26 Resp 20 09/25/24 00:26 BP 108/63 09/25/24 00:26 Pulse Ox 95 09/25/24 00:26 FiO2 Intake & Output 09/24/24 09/25/24 09/25/24 18:59 06:59 18:59 Intake Total 118 Output Total 800 4850 Balance -682 -4850 Weight 104.326 kg Intake: Oral 118 Output: Urine 800 4850 Other: Voiding Method Indwelling Catheter Indwelling Catheter # Voids 0 - Labs CBC & Chem 7: 09/23/24 20:01 09/23/24 20:01
[2024-09-25 09:58] LABS: Basophils # (A) 0.05 X 10*3/uL (0.00-0.10); Basophils % (A) 0.6 %; Eosinophils # (A) 0.12 X 10*3/uL (0.04-0.35); Eosinophils % (A) 1.5 %; HCT 41.1 % (39.6-50.0); HGB 13.7 g/dL (13.0-17.0); Immature Grans, Automated 0.30 %; Lymphocytes # (A) 2.20 X 10*3/uL (0.90-5.00); Lymphocytes % (A) 28.2 %; MCH 30.0 pg (27.0-32.0); MCHC 33.3 g/dL (32.0-37.0); MCV 90.1 FL (80.0-97.0); Monocytes # (A) 0.87 X 10*3/uL (0.20-1.00); Monocytes % (A) 11.2 %; NRBC Per 100 WBC 0 X 10*3/uL (0.00-0.01); Neutrophils # (A) 4.53 X 10*3/uL (1.80-7.70); Neutrophils % (A) 58.2 %; Platelet Count 182 X 10*3/uL (140-440); RBC 4.56 X 10*6/uL (4.40-5.60); RDW 13.3 % (11.5-14.5); WBC 7.79 X 10*3/uL (4.50-10.00)
[2024-09-25 10:22] LABS: ALT 39.0 U/L (10-49); AST 28.0 U/L (14-35); Albumin 3.9 g/dL (3.8-4.9); Albumin/Globulin Ratio 1.86 Ratio (1.60-3.17); Alkaline Phosphatase 80.0 U/L (41-126); Bilirubin,Unconjugated 0.41 mg/dL (0.20-1.00); Globulin 2.1 g/dL (1.6-3.3); Total Protein 6.0 g/dL (6.2-8.2)
--- NOTE | 2024-09-26 09:01 | P.PN ---
Subjective Patient is a pleasant 68 years old male with past medical history of multiple medical problems including history of atrial fibrillation Presents because of dyspnea of 3 days duration he contacted his PCP Dr. Anton who referred him to the emergency room Patient denies chest pain he has little cough He denies any other specific complaint He quit smoking about 3 years ago, he drinks 1 drink a day mainly liquor but sometimes wine and beer Denies illicit drugs He is with no fever, slightly tachycardic and tachypneic Labs showing hemoglobin 12 and rest of labs unremarkable including troponin negative less than 0.012. COVID influenza are negative EKG showing A-fib at a rate of 144 ultrasound of the leg showing no DVT in the left leg Chest x-ray showing some basilar infiltrates CTA of the chest showing no pulmonary embolism but there is cardiomegaly with a small bilateral pleural effusion and patchy groundglass opacities suspicious for CHF versus pneumonia Patient currently on IV Lasix and resumed his Xarelto as well as Cardizem and metoprolol 09/25 Patient feels improved No chest pain or palpitation Little shortness of breath CBC and BMP are normal Patient received IV Lasix He started on metoprolol 50 mg and amiodarone 200 mg on a blood thinner Xarelto CTA of the chest reviewed, no pulmonary embolism Objective - Vital Signs Vital signs: Vital Signs Temp 98.6 F 09/25/24 07:00 Pulse 105 H 09/25/24 07:00 Resp 18 09/25/24 07:00 BP 88/60 09/25/24 07:00 Pulse Ox 95 09/25/24 07:00 FiO2 Intake & Output 09/24/24 09/25/24 09/25/24 18:59 06:59 18:59 Intake Total 118 240 Output Total 800 4850 Balance -682 -4850 240 Weight 104.326 kg Intake: Oral 118 240 Output: Urine 800 4850 Other: Voiding Method Indwelling Catheter Indwelling Catheter # Voids 0 - Exam GENERAL: The patient is alert and oriented x3, not in any acute distress. Well developed, well nourished. HEENT: Pupils are round and equally reacting to light. EOMI. No scleral icterus. No conjunctival pallor. Normocephalic, atraumatic. No pharyngeal erythema. No thyromegaly. CARDIOVASCULAR: S1 and S2 present. No murmurs, rubs, or gallops. PULMONARY: Chest is clear to auscultation, no wheezing , no crackles. ABDOMEN: Soft, nontender, nondistended, normoactive bowel sounds. No palpable organomegaly. MUSCULOSKELETAL: No joint swelling or deformity. EXTREMITIES: No cyanosis, clubbing, or pedal edema. NEUROLOGICAL: Gross neurological examination did not reveal any focal deficits. SKIN: No rashes. no petechiae. - Labs CBC & Chem 7: 09/25/24 06:19 09/23/24 20:01 Assessment and Plan Assessment: CHF new onset, mild Acute paroxysmal A-fib and RVR Hypertension Hyperlipidemia GERD Osteoarthritis Obstructive sleep apnea Plan: Resume Xarelto Continue on the current cardiac medication metoprolol 50 mg, amiodarone 200 mg Cardiology team consult Labs and medication were reviewed.. Continue same treatment. Continue with symptomatic treatment. Resume home medication. Monitor labs and vitals. DVT and GI prophylaxis. Further recommendations as per clinical course of the patient DVT prophylaxis: Subcutaneous heparin GI Prophylaxis: Pepcid Prognosis is guarded
[2024-09-26] MEDS: AMIODARONE 200 MG TAB PO SCH (09:07)
[2024-09-26] MEDS: METOPROLOL TARTRATE 50 MG TAB PO SCH (09:07)
--- NOTE | 2024-09-26 11:57 | PN ---
PROGRESS NOTE SUBJECTIVE: 68-year-old gentleman is admitted to hospital with atrial fibrillation with poorly controlled ventricular rate. This morning, he remains in atrial fibrillation with heart rate is still elevated at around 120 beats per minute. He complains of dizziness, probably from being hypotension. OBJECTIVE: VITAL SIGNS: On exam, heart rate is 120 beats per minute, blood pressure is 112/68, respiratory rate 18. CHEST: Reveals good air entry bilaterally. HEART: Reveals first and second heart sounds, irregular rhythm. ABDOMEN: Soft. EXTREMITIES: Exam of extremities did not reveal any edema. Peripheral pulses are felt. MEDICATIONS: The patient is currently on Lopressor 50 b.i.d. and Xarelto 20 mg daily. I will add amiodarone 200 b.i.d. for better rate control and also on the Lopressor. We are awaiting on the echocardiogram at this time. ASSESSMENT: Persistent atrial fibrillation with poorly controlled ventricular rate. PLAN: Check an echocardiogram. Start amiodarone. Increase the dose of metoprolol. MMODL / IJN: [id number] /
[2024-09-26 12:23] VITALS: BMI 30.3
--- NOTE | 2024-09-26 19:40 | P.PN ---
Subjective Progress Note Date: 09/26/24 HISTORY OF PRESENT ILLNESS: This is a 68-year-old male patient of mine with past medical history of essen tial hypertension, mixed hyperlipidemia, GERD with esophagitis, enlarged prostate, low testosterone, obstructive sleep apnea, paroxysmal atrial fibrillation. Patient presented to the hospital due to worsening shortness of breath that had been progressing over the past several weeks. He was recently switched from metoprolol to Cardizem but his shortness of breath continued to worsen. He was found to be in A-fib with RVR. CT a of the chest was negative for PE. It did show cardiomegaly with small bilateral pleural effusions and interlobular patchy groundglass opacities consistent with pulmonary edema. Patient was admitted to the cardiac stepdown unit and seen by cardiology. 09/26:: Patient sitting up in chair in no apparent distress, he denies any chest pain at this time, he continued to be somewhat short of breath, he is not as bad as was yesterday, he denies any abdominal pain, nausea vomiting or diarrhea, will discontinue his Orozco catheter at this point in time, follow-up with the patient very closely, patient was seen in consultation by cardiology who recommended to discontinue lisinopril as well as Lasix, continue with metoprolol and Xarelto 20 mg once every day, follow-up with the patient very closely. REVIEW OF SYSTEMS: Constitutional: No documented fever, no chills, no night sweats. No weight change. No weakness, fatigue or lethargy. No daytime sleepiness. EENT: No headache. No blurred vision or double vision, no loss of vision. No loss of Hearing, no ringing in the ears, no dizziness. No nasal drainage or congestion. No epistaxis. No sore throat. Lungs: positive for shortness of breath, no cough, no sputum production. No wheezing. Reports dyspnea with activity. Cardiovascular: No chest pain, no lower extremity edema. No palpitations. No paroxysmal nocturnal dyspnea. No orthopnea. No lightheadedness or dizziness. No syncopal episodes. Abdominal: Reports no abdominal pain. No nausea, vomiting. No diarrhea. No constipation. No bloody or tarry stools reports loss of appetite. Genitourinary: No dysuria, increased frequency, urgency. No urinary retention.(Orozco catheter) Musculoskeletal: No myalgias. No muscle weakness, no gait dysfunction, no frequent falls. No back pain. No neck pain. Integumentary: No wounds, no lesions. No rash or pruritus. No unusual bruising. No change in hair or nails. Neurologic: No aphasia. No facial droop. No change in mentation. No head injury. No headache. No paralysis. No paresthesia. Psychiatric: positive for depression. No anxiety. No mood swings. Endocrine: No abnormal blood sugars. No weight change. PHYSICAL EXAMINATION: General: 68-year-old gentleman sitting up in the chair in no apparent distress. HEENT: Head is atraumatic, normocephalic, pupils were equal round reactive to light and recommendation, extraocular muscle movement were intact, sclera nonicteric, conjunctivae were pale, mucous membranes of the mouth are somewhat dry. Neck: Supple, no JVP, normal carotid upstroke bilaterally, no lymphadenopathy. Chest: Decreased breath sounds at the bases, few rhonchi, no expiratory wheezes, no chest wall tenderness, no intercostal retractions. Heart: First heart sound is normal, second heart sounds normal there is systolic ejection murmur 2 over cystic in the left sternal border. Abdomen: Soft, nontender, nondistended, positive bowel sounds. Extremities: There is no edema no calf tenderness DP +2 bilaterally. Neurologic examination: Patient is awake alert and oriented x3, cranial nerves II-12 appear grossly intact, muscle power were 5 out of 5 in upper extremities and 5 out of 5 in bilateral lower extremities, deep tendon reflexes normal bilaterally. ASSESSMENT AND PLAN: 1. Paroxysmal atrial fibrillation with RVR. Cardiology consult appreciated. Patient follows with Dr. Mcbride in the office. Patient is continued on amiodarone 200 mg twice daily, Lopressor 50 mg twice daily as well as Xarelto 20 mg at bedtime. 2. Acute new onset diastolic heart failure secondary to A-fib with RVR. Patient is off diuretics. 3. Hypertension and hypertensive cardiovascular disease continue patient on metoprolol 50 mg 3 times daily, patient was taken off lisinopril at this point in time. 4. Hyperlipidemia. Continue patient on a atorvastatin 40 mg at bedtime. Monitor lipid panel, keep LDL 55-70. 5. GERD. Continue Protonix 40 mg once every day. 6. Benign prostatic hypertrophy. Continue patient on tamsulosin 0.4 mg twice daily. Discontinue Orozco catheter. 7. Low testosterone. Stable at this time. 8. Obstructive sleep apnea. Stable at this time. 9. Likely home tomorrow morning. Objective - Vital Signs Vital signs: Vital Signs Temp 98.5 F 09/26/24 07:00 Pulse 121 H 09/26/24 07:00 Resp 18 09/26/24 07:00 BP 112/68 09/26/24 07:00 Pulse Ox 96 09/26/24 07:00 FiO2 Intake & Output 09/25/24 09/26/24 09/26/24 18:59 06:59 18:59 Intake Total 480 Output Total 650 1600 Balance -170 -1600 Intake: Oral 480 Output: Urine 650 1600 Other: Voiding Method Indwelling Catheter Indwelling Catheter # Bowel Movements 0 - Labs CBC & Chem 7: 09/25/24 06:19 09/23/24 20:01
[2024-09-27 07:09] VITALS: BP 130/78; PULSE 101; RESP 18; TEMP 97.5
[2024-09-27 07:43] LABS: Magnesium 2.2 mg/dL (1.5-2.4)
[2024-09-27 07:46] LABS: Basophils # (A) 0.06 X 10*3/uL (0.00-0.10); Basophils % (A) 0.9 %; Eosinophils # (A) 0.19 X 10*3/uL (0.04-0.35); Eosinophils % (A) 2.8 %; HCT 39.1 % (39.6-50.0); HGB 13.2 g/dL (13.0-17.0); Immature Grans, Automated 0.10 %; Lymphocytes # (A) 2.12 X 10*3/uL (0.90-5.00); Lymphocytes % (A) 31.7 %; MCH 30.7 pg (27.0-32.0); MCHC 33.8 g/dL (32.0-37.0); MCV 90.9 FL (80.0-97.0); Monocytes # (A) 0.66 X 10*3/uL (0.20-1.00); Monocytes % (A) 9.9 %; NRBC Per 100 WBC 0 X 10*3/uL (0.00-0.01); Neutrophils # (A) 3.64 X 10*3/uL (1.80-7.70); Neutrophils % (A) 54.6 %; Platelet Count 206 X 10*3/uL (140-440); RBC 4.30 X 10*6/uL (4.40-5.60); RDW 13.0 % (11.5-14.5); WBC 6.68 X 10*3/uL (4.50-10.00)
[2024-09-27 07:57] LABS: BUN/Creat Ratio 20.25 Ratio (12.00-20.00); Blood Urea Nitrogen 24.3 mg/dL (9.0-27.0); Glucose 96 mg/dL (70-110)
[2024-09-27 07:58] LABS: ALT 29 U/L (10-49); AST 20 U/L (14-35); Albumin 3.7 g/dL (3.8-4.9); Albumin/Globulin Ratio 1.85 Ratio (1.60-3.17); Alkaline Phosphatase 77 U/L (41-126); Anion Gap 12.60 mmol/L (4.00-12.00); Calcium 8.8 mg/dL (8.7-10.3); Carbon Dioxide 24.4 mmol/L (21.6-31.8); Chloride 106 mmol/L (96-109); Globulin 2.0 g/dL (1.6-3.3); Potassium 4.6 mmol/L (3.5-5.5); Sodium 143 mmol/L (135-145); Total Protein 5.7 g/dL (6.2-8.2)
--- NOTE | 2024-09-27 11:18 | CA ---
Transthoracic Echo Report Name: Bebeto Coleman Age: 68 Gender: M : 1955 Exam Date: 09/27/2024 08:19 Exam Location: [facility] Ht (in): 73 Wt (lb): 230 Ordering Physician: Kelsie Viera MD Attending/Referring Phys: Childcare Teacher Rianna Gomez RDCS Procedure CPT: Indications: Heart failure Cardiac Hx: Technical Quality: Fair Contrast 1: Total Dose (mL): Contrast 2: Total Dose (mL): MEASUREMENTS (Male / Female) Normal Values 2D ECHO LV Diastolic Diameter PLAX 5.2 cm 4.2 - 5.9 / 3.9 - 5.3 cm LV Systolic Diameter PLAX 4.3 cm IVS Diastolic Thickness 1.3 cm 0.6 - 1.0 / 0.6 - 0.9 cm LVPW Diastolic Thickness 1.2 cm 0.6 - 1.0 / 0.6 - 0.9 cm LV Relative Wall Thickness 0.5 RV Internal Dim ED PLAX 2.7 cm LA Systolic Diameter LX 4.5 cm 3.0 - 4.0 / 2.7 - 3.8 cm LV Diastolic Volume MOD BP 104.3 cm??? 67 - 155 / 56 - 104 cm??? LV Systolic Volume MOD BP 64.6 cm??? 22 - 58 / 19 - 49 cm??? LV Ejection Fraction MOD BP 38.1 % >= 55 % LV Cardiac Index MOD BP 1220.3 cm???/min???m??? LV Diastolic Volume MOD 4C 97.1 cm??? LV Systolic Volume MOD 4C 49.9 cm??? LV Ejection Fraction MOD 4C 48.6 % LV Cardiac Index MOD 4C 1450.0 cm???/min???m??? LV Diastolic Length 4C 7.7 cm LV Systolic Length 4C 7.4 cm LV Diastolic Volume MOD 2C 108.8 cm??? LV Systolic Volume MOD 2C 82.1 cm??? LV Ejection Fraction MOD 2C 24.5 % LV Cardiac Index MOD 2C 819.7 cm???/min???m??? LV Diastolic Length 2C 7.4 cm LV Systolic Length 2C 7.5 cm M-MODE Aortic Root Diameter MM 3.7 cm LA Systolic Diameter MM 4.4 cm LA Ao Ratio MM 1.2 AV Cusp Separation MM 2.3 cm DOPPLER AI Peak Velocity 352.1 cm/s AI Peak Gradient 49.6 mmHg AI Pressure Half Time 929.7 ms Mitral E Point Velocity 78.5 cm/s Mitral A Point Velocity 2.5 cm/s Mitral E to A Ratio 31.4 MV Deceleration Time 259.3 ms MV E' Velocity 6.2 cm/s Mitral E to MV E' Ratio 12.8 TR Peak Velocity 185.3 cm/s TR Peak Gradient 13.7 mmHg Right Ventricular Systolic Press 18.7 mmHg FINDINGS Left Ventricle Left ventricular ejection fraction is estimated at 25-30 %. Mildly increased septal wall thickness. Mildly increased left ventricular systolic volume. Severely reduced global left ventricular systolic function. Right Ventricle Mild right ventricular dilatation. Right ventricular systolic pressure within normal limits. Right Atrium Mild right atrial dilatation. Left Atrium Mildly increased left atrial diameter. Mitral Valve Structurally normal mitral valve. Moderate mitral regurgitation. No mitral stenosis. Aortic Valve Trileaflet aortic valve. No aortic stenosis. Moderate aortic regurgitation. Tricuspid Valve Structurally normal tricuspid valve. Trace to mild tricuspid regurgitation. No tricuspid stenosis. Pulmonic Valve Structurally normal pulmonic valve. Trace pulmonic regurgitation. No pulmonic stenosis. Pericardium No pericardial or pleural effusion. Aorta Aorta at upper limits of normal. CONCLUSIONS Severe LV systolic dysfunction Moderate mitral regurgitation Moderate aortic regurgitation Previewed by: Dr. Roman Prater MD (Electronically Signed) Final Date: 27 September 2024 11:17
--- NOTE | 2024-09-27 11:46 | P.PN ---
Subjective HISTORY OF PRESENT ILLNESS: Patient examined this morning at bedside. Patient currently denies chest pain or pressure. He denies shortness of breath. Vital signs are stable. He remains in atrial fibrillation with controlled ventricular rate. Echocardiogram completed revealing ejection fraction 25 to 30%, global hypokinesis, moderate aortic regurgitation, mild tricuspid regurgitation, moderate mitral regurgitation. PHYSICAL EXAM: VITAL SIGNS: Reviewed. GENERAL: Well-developed in no acute distress. NECK: Supple. No JVD or thyromegaly LUNGS: Respirations even and unlabored. Lungs essentially clear to auscultation bilaterally. HEART: Regular rate and rhythm. S1 and S2 heard. EXTREMITIES: Normal range of motion. No clubbing or cyanosis. Peripheral pulses intact. No lower extremity edema ASSESSMENT: Paroxysmal atrial fibrillation with RVR, currently rate controlled New onset cardiomyopathy, ischemic versus nonischemic, may be underestimated on echo due to atrial fibrillation Moderate aortic regurgitation Moderate mitral regurgitation PLAN: Continue amiodarone, Lipitor, and metoprolol Change metoprolol tartrate to 75 mg twice a day Continue anticoagulation with Xarelto Patient's lisinopril and Cardizem were discontinued due to hypotension Reassess medications on an outpatient basis to see if cardiomyopathy medications can be introduced Further evaluation of cardiomyopathy to be performed on an outpatient basis Patient is stable for discharge home today from a cardiac standpoint Nurse practitioner note has been reviewed by physician. Signing provider agrees with the documented findings, assessment, and plan of care documented by ELECTRICAL & INSTRUMENTATION SUPERVISOR as a scribe. Objective - Vital Signs Vital signs: Vital Signs Temp 97.5 F L 09/27/24 07:08 Pulse 101 H 09/27/24 07:08 Resp 18 09/27/24 07:08 BP 130/78 09/27/24 07:08 Pulse Ox 97 09/27/24 07:08 FiO2 Intake & Output 09/26/24 09/27/24 09/27/24 18:59 06:59 18:59 Intake Total 222 Output Total 98 Balance -98 222 Weight 104.326 kg Intake: Oral 222 Output: Post Void Residual 98 Other: Voiding Method Indwelling Catheter Toilet Toilet # Voids 3 - Labs CBC & Chem 7: 09/27/24 04:41 09/27/24 04:41 Labs: Abnormal Lab Results - Last 24 Hours (Table) 09/27/24 09/27/24 Range/Units 04:41 04:41 RBC 4.30 L (4.40-5.60) X 10*6/uL Hct 39.1 L (39.6-50.0) % Anion Gap 12.60 H (4.00-12.00) mmol/L BUN/Creatinine Ratio 20.25 H (12.00-20.00) Ratio Total Protein 5.7 L (6.2-8.2) g/dL Albumin 3.7 L (3.8-4.9) g/dL
[2024-09-27] MEDS ORDERED: METOPROLOL TARTRATE 25 MG TAB PO SCH (21:00)
--- NOTE | 2024-10-07 15:09 | P.DS ---
Providers Date of admission: 09/23/24 22:12 Expected date of discharge: 09/27/24 Attending physician: Jer Velasquez Consults: 09/24/24 06:47 Consult Physician Routine Consulting Provider: Morgan Dubose Consult Reason/Comments: Afib RVR Do you want consulting provider notified?: Yes, Notify in am Primary care physician: Jer Velasquez Hospital Course: HISTORY OF PRESENT ILLNESS: This is a 68-year-old male patient of mine with past medical history of essential hypertension, mixed hyperlipidemia, GERD with esophagitis, enlarged prostate, low testosterone, obstructive sleep apnea, paroxysmal atrial fibrillation. Patient presented to the hospital due to worsening shortness of breath that had been progressing over the past several weeks. He was recently switched from metoprolol to Cardizem but his shortness of breath continued to worsen. He was found to be in A-fib with RVR. CT a of the chest was negative for PE. It did show cardiomegaly with small bilateral pleural effusions and interlobular patchy groundglass opacities consistent with pulmonary edema. Patient was admitted to the cardiac stepdown unit and seen by cardiology. 09/26:: Patient sitting up in chair in no apparent distress, he denies any chest pain at this time, he continued to be somewhat short of breath, he is not as bad as was yesterday, he denies any abdominal pain, nausea vomiting or diarrhea, w ill discontinue his Orozco catheter at this point in time, follow-up with the patient very closely, patient was seen in consultation by cardiology who recommended to discontinue lisinopril as well as Lasix, continue with metoprolol and Xarelto 20 mg once every day, follow-up with the patient very closely. 09/27: Patient is sitting up in chair in no apparent distress, he continues to be somewhat fatigue and tired, his echocardiogram was reviewed that showed evidence of severe nonischemic cardiomyopathy with ejection fraction of 25 to 30%, moderate mitral regurgitation, moderate aortic regurgitation, he was kept on amiodarone as well as on metoprolol 75 mg orally twice every day, he was taken off lisinopril due to hypotension, he is to follow-up with his traffic enumerator as an outpatient in next week and he will follow-up with me as an outpatient in 1 week as well, patient will stay on the low-salt diet, continue current activity level, no strenuous activity until evaluated by cardiology, follow-up with the patient very closely. Discharge diagnoses: 1. Paroxysmal atrial fibrillation with RVR. secondary to A-fib with RVR. 2. Severe nonischemic cardiomyopathy with ejection fraction of 25 to 30% 3. Moderate mitral regurgitation. 4. Moderate aortic regurgitation. 5. Hypertension and hypertensive cardiovascular disease 6. Hyperlipidemia. 7. GERD. 8. Benign prostatic hypertrophy. 9. Low testosterone. 10. Obstructive sleep apnea. Patient Condition at Discharge: Serious Plan - Discharge Summary Discharge Rx Participant: No New Discharge Prescriptions: New Metoprolol Tartrate [Lopressor] 75 mg PO BID #180 tab Amiodarone [Cordarone] 200 mg PO BID #60 tab Continue Tamsulosin HCl [Flomax] 0.4 mg PO BID Rivaroxaban [Xarelto] 20 mg PO W/SUPPER Atorvastatin [Lipitor] 40 mg PO DAILY Discontinued dilTIAZem HCL 30 mg PO DIRECTED lisinopriL [Zestril] 10 mg PO DAILY Discharge Medication List Tamsulosin HCl [Flomax] 0.4 mg PO BID 07/08/17 [History] Atorvastatin [Lipitor] 40 mg PO DAILY 09/24/24 [History] Rivaroxaban [Xarelto] 20 mg PO W/SUPPER 09/24/24 [History] Amiodarone [Cordarone] 200 mg PO BID #60 tab 09/27/24 [Rx] Metoprolol Tartrate [Lopressor] 75 mg PO BID #180 tab 09/27/24 [Rx] Follow up Appointment(s)/Referral(s): Jer Velasquez MD [Primary Care Provider] - 1 Week Rob Mcbride DO [STAFF PHYSICIAN] - 10/07/24 9:30 am Patient Instructions/Handouts: Heart Failure (DC) Discharge Disposition: HOME SELF-CARE
== END 2024-09-27 12:37 | disposition home or self-care (01) | DRG 308 ==
LOC: EC 19:06 → 6NMEDSUR 22:11 → OBSVTOIN 22:12 → 6NMEDSUR 09-24 13:32
PROVIDERS: ADMIT Internal Medicine; ATTEND Internal Medicine
DX: I48.0 Paroxysmal atrial fibrillation (principal); I50.31 Acute diastolic (congestive) heart failure; I11.0 Hypertensive heart disease with heart failure; I34.0 Nonrheumatic mitral (valve) insufficiency; Z11.52 Encounter for screening for COVID-19; Z79.01 Long term (current) use of anticoagulants; I35.1 Nonrheumatic aortic (valve) insufficiency; G47.33 Obstructive sleep apnea (adult) (pediatric); I25.5 Ischemic cardiomyopathy; E78.2 Mixed hyperlipidemia; I25.10 Atherosclerotic heart disease of native coronary artery without angina pectoris; M19.90 Unspecified osteoarthritis, unspecified site; N40.0 Benign prostatic hyperplasia without lower urinary tract symptoms; Z79.899 Other long term (current) drug therapy; Z82.49 Family history of ischemic heart disease and other diseases of the circulatory system; Z87.891 Personal history of nicotine dependence; K21.9 Gastro-esophageal reflux disease without esophagitis
CPT/HCPCS: 36415; 51702; 51798; 71275; 80053; 80076; 83735; 83880; 84484; 85025; 85610; 85730; 87636; 93005; 93306; 93970; 96374; 96376; 99291

== ENCOUNTER → 2024-09-23 | Outpatient (CLI) | payer MEDICARE ==
--- NOTE | 2024-09-23 12:06 | XR ---
EXAMINATION TYPE: XR chest 2V DATE OF EXAM: 09/23/2024 12:01 PM COMPARISON: 02/25/2020 CLINICAL INDICATION: Male, 68 years old with history of R06.02 SHORTNESS OF BREATH, TECHNIQUE: XR chest 2V view(s) obtained. FINDINGS: The heart size is normal. The pulmonary vasculature is somewhat prominent. Mild increased lung markings are present diffusely. Correlate for pulmonary edema.. IMPRESSION: 1. Suggestion of mild diffuse pulmonary edema. Correlate provided overload. Follow-up recommended. [facility], , 09/23/2024 12:03 PM
[2024-09-23 12:25] LABS: Basophils # (A) 0.03 10*3/uL (0.00-0.10); Basophils % (A) 0.4 %; Eosinophils # (A) 0.06 10*3/uL (0.04-0.35); Eosinophils % (A) 0.8 %; HCT 38.8 % (39.6-50.0); Lymphocytes # (A) 1.27 10*3/uL (0.90-5.00); Lymphocytes % (A) 17.9 %; MCH 30.8 pg (27.0-32.0); MCHC 33.5 g/dL (32.0-37.0); MCV 91.9 fL (80.0-97.0); Monocytes # (A) 0.68 10*3/uL (0.20-1.00); Monocytes % (A) 9.6 %; Neutrophils # (A) 5.02 10*3/uL (1.80-7.70); Platelet Count 155 10*3/uL (140-440); RBC 4.22 10*6/uL (4.40-5.60); RDW 13.6 % (11.5-14.5); WBC 7.08 10*3/uL (4.50-10.00)
[2024-09-23 12:41] LABS: ALT 50 U/L (4-49); AST 27 U/L (17-59); African American GFR (CKD) >90 (>60 ml/min/1.73 sqM); Albumin/Globulin Ratio 1.8; Alkaline Phosphatase 82 U/L (38-126); Anion Gap 7 mmol/L; Blood Urea Nitrogen 18 mg/dL (9-20); Calcium 9.3 mg/dL (8.4-10.2); Carbon Dioxide 25 mmol/L (22-30); Chloride 106 mmol/L (98-107); Globulin 2.2 g/dL; Glucose 91 mg/dL (74-99); Non-African American GFR(CKD) >90 (>60 ml/min/1.73 sqM); Potassium 4.1 mmol/L (3.5-5.1); Sodium 138 mmol/L (137-145); Total Bilirubin 1.1 mg/dL (0.2-1.3); Total Protein 6.2 g/dL (6.3-8.2)
[2024-09-23 12:50] LABS: NT-Pro-B-Type Natriuretic Pept 2270 pg/mL
== END | disposition home or self-care (01) ==
LOC: LABWHC1 11:02
PROVIDERS: ATTEND Internal Medicine
DX: R06.02 Shortness of breath (principal)
CPT/HCPCS: 36415; 71046; 80053; 83880; 84484; 85025; 85379

== ENCOUNTER → 2024-10-28 | Outpatient (CLI) | payer MEDICARE ==
[2024-10-28 15:21] LABS: HCT 41.5 % (39.6-50.0); HGB 13.4 g/dL (13.0-17.0); MCH 29.8 pg (27.0-32.0); MCHC 32.3 g/dL (32.0-37.0); MCV 92.2 FL (80.0-97.0); NRBC Per 100 WBC 0 X 10*3/uL (0.00-0.01); Platelet Count 150 X 10*3/uL (140-440); RBC 4.50 X 10*6/uL (4.40-5.60); RDW 13.6 % (11.5-14.5); WBC 4.02 X 10*3/uL (4.50-10.00)
[2024-10-28 15:31] LABS: Anion Gap 8.30 mmol/L (4.00-12.00); Blood Urea Nitrogen 20.1 mg/dL (9.0-27.0); Carbon Dioxide 25.7 mmol/L (21.6-31.8); Chloride 107 mmol/L (96-109); Potassium 4.6 mmol/L (3.5-5.5); Sodium 141 mmol/L (135-145)
== END | disposition home or self-care (01) ==
LOC: LABWHC1 10:15
PROVIDERS: ATTEND Internal Medicine Clinical Cardiac Electrophysiology
DX: I48.0 Paroxysmal atrial fibrillation (principal)
CPT/HCPCS: 80051; 82565; 84520; 85027